=== PATIENT | female | born 1965 | race Caucasian/White ===

== ENCOUNTER 2019-09-06 09:44 | Emergency (ER) | payer MEDICAID, SELFPAY ==
[2019-09-06 09:56] VITALS: BP 128/89; PULSE 97; RESP 20; TEMP 37.2; O2SAT 97; BMI 18.8
--- NOTE | 2019-09-06 10:02 | PC.NURSE ---
Pt is unkept, no clothes from waist down. Loose fitting T-shirt and exposes her breast. Foul odor of alcohol. Denies drug use
[2019-09-06 10:22] LABS: Basophils # 0.1 10^3/uL (0.0-0.1); Basophils % 1.3 %; Eosinophils # 0.1 10^3/uL (0.0-0.8); Eosinophils % 0.9 %; Hematocrit 39.8 % (37.0-47.0); Hemoglobin 13.7 g/dL (11.5-15.3); Lymphocytes # 1.6 10^3/uL (0.8-4.8); Lymphocytes % 30.1 %; Mean Corpuscular HGB Conc 34.4 g/dL (30.0-36.0); Mean Corpuscular Hemoglobin 32.8 pg (28.0-34.0); Mean Corpuscular Volume 95.2 fL (81-99); Mean Platelet Volume 9.1 fL (7.4-10.4); Monocytes # 1.3 10^3/uL (0.2-0.9); Monocytes % 24.5 %; Neutrophils # 2.3 10^3/uL (1.8-7.7); Nucleated Red Blood Cells % 0 %; Platelet Count 272 10^3/cmm (130-400); Red Blood Count 4.18 10^6/uL (4.1-5.3); Red Cell Distribution Width 15.6 % (12.1-15.1); White Blood Count 5.4 10^3/uL (4.0-10.0)
[2019-09-06 10:38] VITALS: PULSE 82; RESP 16; O2SAT 98
[2019-09-06 10:38] LABS: Alanine Aminotransferase 46 U/L (0-33); Albumin Level 4.6 g/dL (3.5-5.2); Alkaline Phosphatase 74 IU/L (35-105); Anion Gap 22.2 (5-19); Aspartate Amino Transferase 54 U/L (0-32); Blood Urea Nitrogen 14 mg/dL (6-20); Calcium 9.7 mg/dL (8.5-10.5); Carbon Dioxide 23 mmol/L (22-29); Chloride 96 mmol/L (98-107); Globulin 3.4 g/dL (1.3-4.6); Glomerular Filtration Rate 165.7 mL/min (90-130); Glucose 131 mg/dL (65-115); Magnesium 1.8 mg/dL (1.7-2.3); Osmolality Calculated 282 mOsm/kg (285-295); Potassium 4.2 mmol/L (3.5-5.1); Sodium 137 mmol/L (136-145); Total Bilirubin 0.2 mg/dL (0.15-1.2)
[2019-09-06 10:50] LABS: Creatine Phosphokinase 431 U/L (26-192); Lactate (Lactic Acid level) 4.7 mmol/L (0.5-2.2)
--- NOTE | 2019-09-06 10:53 | XRR_ITS ---
PROCEDURE INFORMATION: Exam: XR Chest, 1 View Exam date and time: 09/06/2019 11:22 AM Age: 54 years old Clinical indication: Patient HX: HX of ms; C/O left leg pain to lower back. Involuntary leg movements; Additional info: Dyspnea/cough TECHNIQUE: Imaging protocol: XR of the chest Views: 1 view. COMPARISON: CR Chest 1 [place] [id number] 01/08/2018 10:09 PM FINDINGS: Lungs: COPD and interstitial prominence. No acute airspace disease. Pleural space: No pleural effusion. Heart/Mediastinum: No cardiomegaly. Bones/joints: Unremarkable. When correlating with the previous study, no significant interval changes are present. XR/XR chest 1V portable [id number] IMPRESSION: COPD.
--- NOTE | 2019-09-06 11:12 | W.ED.GENADLT ---
HPI - General Adult General: Chief complaint: General Medical Stated complaint: MS, INVOLUNTARY MOVEMENTS Time Seen by Provider: 09/06/19 09:48 History of Present Illness: HPI narrative: 54-year-old female comes in stating I am having an MS attack she usually sees Dr. Mooney she is twitching continuously. We will get in taking her history and she is distracted the twisting stops until I mentioned to her that it began again. She stated it started this morning. She supposed to see Dr. Mooney last month but missed her appointment she is on Tecfidera but has been taking regularly no gaps in her treatment. Onset (ago): hour(s) Severity: moderate Relieving factors: none Exacerbating factors: none Associated symptoms: Reports confusion, dyspnea and weakness; Deny chest pain, cough, diaphoresis, nausea, rash or vomiting Treatments prior to arrival: none Review of Systems Const: Denies: diaphoresis ENMT: Denies: throat pain, ear or mastoid pain, nasal discharge or nasal congestion Card: Denies: chest pain Resp: Reports: dyspnea GI: Denies: abdominal pain, nausea, vomiting, hematemesis, coffee ground emesis, diarrhea, constipation, bloating, hematochezia or melena : Denies: flank pain, difficulty voiding, dysuria, urinary frequency or urinary urgency Skin/Breast: Denies: rash or pruritus Neuro: Reports: confusion PFSH ED PFSH: Medical History Low back pain Multiple sclerosis Osteoarthritis Seizures Physical Exam Const: COMMON NORMALS: no acute distress GENERAL APPEARANCE: cooperative and comfortable ORIENTATION/CONSCIOUSNESS: Yes awake, Yes oriented to person, Yes oriented to place and Yes oriented to time HENMT: COMMON NORMALS: normocephalic, atraumatic, hearing grossly normal bilaterally, external ears normal, EAC's normal, TM's normal bilaterally, Normal nasal mucous membranes and turbinates present, moist oral mucous membranes and oropharynx normal HEAD & SCALP: normocephalic and atraumatic NOSE: Normal nasal mucous membranes and turbinates present EXTERNAL EAR: Yes external ears normal EXTERNAL AUDITORY CANAL: EAC's normal TYMPANIC MEMBRANE: TM's normal bilaterally Eye: COMMON NORMALS: Equal, round and reactive pupils present, EOMs intact bilaterally, conjunctivae normal and no scleral icterus CONJUNCTIVA: Yes conjunctivae normal PUPIL: Yes Equal, round and reactive pupils present Neck/C-Spine: COMMON NORMALS: full ROM, no lymphadenopathy, supple and no JVD Lymph: LYMPHATIC: no lymphadenopathy noted and no lymphedema noted Resp: COMMON NORMALS: normal respiratory effort, No retractions, No use of accessory muscles and clear to auscultation bilaterally AUSCULTATION: clear to auscultation bilaterally Cardio: COMMON NORMALS: no JVD, regular rate, regular rhythm and No murmurs present (Cardio) RATE: regular rate RHYTHM: regular rhythm GI: COMMON NORMALS: Soft to palpation and No hepatosplenomegaly present AUSCULTATION: Yes normoactive bowel sounds PALPATION: Yes Soft to palpation, No Tenderness to palpation present (GI), No Guarding due to palpation present (GI) and Yes No hepatosplenomegaly present Extremity: COMMON NORMALS: normal to inspection, capillary refill normal, no clubbing, cyanosis or edema, no calf tenderness and no pedal edema Neuro: SENSORIUM/ORIENTATION: Yes oriented to person, Yes oriented to place and Yes oriented to time OTHER: Frequent twitching but with distraction twitching stops. Skin: COMMON NORMALS: no rashes or lesions noted GENERAL SKIN EXAM: no rashes or lesions noted Course Vital Signs: Vital signs: Vital Signs Temperature 97.6 F 09/06/19 15:27 Pulse Rate 76 09/06/19 15:27 Respiratory Rate 16 09/06/19 15:27 Blood Pressure 138/76 09/06/19 15:27 Pulse Oximetry 95 09/06/19 15:27 MDM - General Adult MDM Narrative: Medical decision making narrative: Discussed with Dr. Mooney. Patient is acutely intoxicated at this time. Which exacerbates her MS. The repair and all did seem to help her although in her very distracted with conversation her twitching would stop throughout the conversation. Patient was also given IV fluids discussed her alcohol intake and its effect on her MS. Dr. Mooney recommends that she continue the Tecfidera, she also recommend Solu-Medrol 1 g daily for the next 3 days as the first to be given in the ER and then the other 2 as outpatients either in outpatients through home health or at Dr. Mooney's office will have case management work on getting that arranged. Patient is otherwise stable at this time will discharge home. May return if needed. Lab Data: Labs: Lab Results 09/06/19 09/06/19 09/06/19 Range/Units 10:17 10:17 10:17 WBC 5.4 (4.0-10.0) 10^3/ uL RBC 4.18 (4.1-5.3) 10^6/u L Hgb 13.7 (11.5-15.3) g/dL Hct 39.8 (37.0-47.0) % MCV 95.2 (81-99) fL MCH 32.8 (28.0-34.0) pg MCHC 34.4 (30.0-36.0) g/dL RDW 15.6 H (12.1-15.1) % Plt Count 272 (130-400) 10^3/c mm MPV 9.1 (7.4-10.4) fL Neut % (Auto) 43.0 % Lymph % (Auto) 30.1 % [place] % (Auto) 24.5 % Eos % (Auto) 0.9 % Baso % (Auto) 1.3 % Neut # (Auto) 2.3 (1.8-7.7) 10^3/u L Lymph # (Auto) 1.6 (0.8-4.8) 10^3/u L [place] # (Auto) 1.3 H (0.2-0.9) 10^3/u L Eos # (Auto) 0.1 (0.0-0.8) 10^3/u L Baso # (Auto) 0.1 (0.0-0.1) 10^3/u L Nucleated RBC % (a uto) 0 % Nucleated RBCs # 0.0 /100WBC Sodium 137 (136-145) mmol/L Potassium 4.2 (3.5-5.1) mmol/L Chloride 96 L (98-107) mmol/L Carbon Dioxide 23 (22-29) mmol/L Anion Gap 22.2 H (5-19) BUN 14 (6-20) mg/dL Creatinine 0.4 L (0.5-0.9) mg/dL GFR Calculation 165.7 H (90-130) mL/min Glucose 131 H (65-115) mg/dL Calculated Osmolal ity 282 L (285-295) mOsm/k g Lactate 4.7 H* (0.5-2.2) mmol/L Calcium 9.7 (8.5-10.5) mg/dL Phosphorus 3.0 (2.5-4.5) mg/dL Magnesium 1.8 (1.7-2.3) mg/dL Total Bilirubin 0.2 (0.15-1.2) mg/dL AST 54 H (0-32) U/L ALT 46 H (0-33) U/L Alkaline Phosphata se 74 (35-105) IU/L Creatine Kinase 431 H* (26-192) U/L Total Protein 8.0 (6.6-8.7) g/dL Albumin 4.6 (3.5-5.2) g/dL Globulin 3.4 (1.3-4.6) g/dL Urine Color (Yellow) Urine Appearance (CLEAR) Urine pH (5-7) Ur Specific Gravit y (1.005-1.030) Urine Protein (Negative) Urine Glucose (UA) (Normal) Urine Ketones (Negative) Urine Blood (Negative) Urine Nitrate (Negative) Urine Bilirubin (NEGATIVE) Urine Urobilinogen (Negative) mg/dL Ur Leukocyte Tammy ase (Negative) Urine RBC (0-2) /hpf Urine WBC (0-5) /hpf Ur Squamous Epith Cells (0-5) Amorphous Sediment Urine Bacteria (NONE) Urine Mucus Urine Opiates Scre en (Negative) ng/mL Ur Barbiturates Sc reen (Negative) ng/mL Ur Phencyclidine S crn (Negative) ng/mL Ur Amphetamines Sc reen (Negative) ng/mL U Benzodiazepines Scrn (Negative) ng/mL Urine Cocaine Scre en (Negative) ng/mL U Marijuana (THC) Screen (Negative) ng/mL Ethyl Alcohol (0-10) mg/dL 09/06/19 09/06/19 09/06/19 Range/Units 10:17 10:57 10:57 WBC (4.0-10.0) 10^3/ uL RBC (4.1-5.3) 10^6/u L Hgb (11.5-15.3) g/dL Hct (37.0-47.0) % MCV (81-99) fL MCH (28.0-34.0) pg MCHC (30.0-36.0) g/dL RDW (12.1-15.1) % Plt Count (130-400) 10^3/c mm MPV (7.4-10.4) fL Neut % (Auto) % Lymph % (Auto) % [place] % (Auto) % Eos % (Auto) % Baso % (Auto) % Neut # (Auto) (1.8-7.7) 10^3/u L Lymph # (Auto) (0.8-4.8) 10^3/u L [place] # (Auto) (0.2-0.9) 10^3/u L Eos # (Auto) (0.0-0.8) 10^3/u L Baso # (Auto) (0.0-0.1) 10^3/u L Nucleated RBC % (a uto) % Nucleated RBCs # /100WBC Sodium (136-145) mmol/L Potassium (3.5-5.1) mmol/L Chloride (98-107) mmol/L Carbon Dioxide (22-29) mmol/L Anion Gap (5-19) BUN (6-20) mg/dL Creatinine (0.5-0.9) mg/dL GFR Calculation (90-130) mL/min Glucose (65-115) mg/dL Calculated Osmolal ity (285-295) mOsm/k g Lactate (0.5-2.2) mmol/L Calcium (8.5-10.5) mg/dL Phosphorus (2.5-4.5) mg/dL Magnesium (1.7-2.3) mg/dL Total Bilirubin (0.15-1.2) mg/dL AST (0-32) U/L ALT (0-33) U/L Alkaline Phosphata se (35-105) IU/L Creatine Kinase (26-192) U/L Total Protein (6.6-8.7) g/dL Albumin (3.5-5.2) g/dL Globulin (1.3-4.6) g/dL Urine Color Straw (Yellow) Urine Appearance Clear (CLEAR) Urine pH 5.0 (5-7) Ur Specific Gravit y 1.020 (1.005-1.030) Urine Protein Neg (Negative) Urine Glucose (UA) Norm (Normal) Urine Ketones 1+ H (Negative) Urine Blood 2+ H (Negative) Urine Nitrate Negative (Negative) Urine Bilirubin Neg (NEGATIVE) Urine Urobilinogen Norm (Negative) mg/dL Ur Leukocyte Tammy ase Negative (Negative) Urine RBC 0-4 H (0-2) /hpf Urine WBC None (0-5) /hpf Ur Squamous Epith Cells 0-4 H (0-5) Amorphous Sediment Not Reportable Urine Bacteria 1+ H (NONE) Urine Mucus 1+ Urine Opiates Scre en Negative (Negative) ng/mL Ur Barbiturates Sc reen Negative (Negative) ng/mL Ur Phencyclidine S crn Negative (Negative) ng/mL Ur Amphetamines Sc reen Negative (Negative) ng/mL U Benzodiazepines Scrn Negative (Negative) ng/mL Urine Cocaine Scre en Negative (Negative) ng/mL U Marijuana (THC) Screen Negative (Negative) ng/mL Ethyl Alcohol 147 H (0-10) mg/dL Discharge Plan Discharge Patient Disposition: Home, Self-Care Clinical Impression: Multiple sclerosis, ETOH abuse, Acute alcohol intoxication Condition: Stable Prescriptions: No Action Tecfidera 240 mg capsule,delayed release(DR/EC) 240 mg PO BID Qty: 60 RF: 8 Tecfidera 240 mg capsule,delayed release(DR/EC) 240 mg PO BID Qty: 180 RF: 4 Discharge Orders: Discharge Order (Routine); Ordered 09/06/19 Ordered By: Saul Moore Referrals: Jeny Johnson FNP [Primary Care Provider] - Discharge Diet: Advance as tolerated Discharge Activity: Resume usual activity Activity Restrictions/Additional Instructions: Abstain from alcohol. Case management will arrange for you to get Solu-Medrol 1 g tomorrow and the following day. 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
[2019-09-06 11:25] LABS: Add Urine Microscopic? YES; Bilirubin Urine Neg (NEGATIVE); Blood Urine 2+ (Negative); Glucose Urine UA Norm (Normal); Ketones Urine 1+ (Negative); Leukocyte Esterase Urine Negative (Negative); Nitrate Urine Negative (Negative); Protein Urine Neg (Negative); Urine Appearance Clear (CLEAR); Urine Color Straw (Yellow); Urobilinogen Urine Norm (Negative)
[2019-09-06 11:29] VITALS: BP 132/92; PULSE 85; RESP 18; O2SAT 98
--- NOTE | 2019-09-06 11:37 | PC.NURSE ---
Poor Hygiene, Unkept and foul body odor. Alert and oriented.
[2019-09-06 11:46] LABS: Bacteria Urine 1+; Mucus Urine 1+; RBC Urine 0-4 /hpf (0-2); Squamous Epithelial Cell Urine 0-4 (0-5)
[2019-09-06 11:47] LABS: Add Urine Culture? No
[2019-09-06 11:52] LABS: Alcohol Level 147 mg/dL (0-10)
[2019-09-06 12:12] LABS: Amphetamines Screen Urine Negative (Negative); Barbiturates Screen Urine Negative (Negative); Benzodiazepines Screen Urine Negative (Negative); Cocaine Screen Urine Negative (Negative); Opiate Screen Urine Negative (Negative); PCP Screen Urine Negative (Negative); THC Screen Urine Negative (Negative)
[2019-09-06] MEDS: ropinirole 1 mg Tablet PO (12:13)
--- NOTE | 2019-09-06 13:34 | DCPLANNER ---
career services manager was asked to schedule a follow up appointment for patient with Dr. Mooney for an infusion. career services manager called the office of Dr. Mooney, spoke with Carmelita, the following appointments were scheduled for patient. Thursday, September 07, 2019 at 11:00 trip [place] [phone] August at 11:00 trip number [id number] career services manager called and arranged transportation for patient for these two appointments. career services manager also called and arranged [place] [phone].
[2019-09-06] MEDS: metoclopramide 5 mg/mL SDV 2 mL 10 MG IVP (13:38)
[2019-09-06 13:42] VITALS: BP 144/82; PULSE 90; RESP 16; O2SAT 97
[2019-09-06] MEDS: sodium chloride 0.9% 1,000 ML 999 ML IV (14:01)
[2019-09-06 15:27] VITALS: BP 138/76; PULSE 76; RESP 16; TEMP 36.4; O2SAT 95
--- NOTE | 2019-09-13 11:34 | DCPLANNER ---
Patient did attend follow up appointment scheduled for 09.08.[address] Mooney.
== END 2019-09-06 15:29 | disposition home or self-care (01) ==
LOC: ER 12:31
PROVIDERS: Emergency Provider Family Medicine; Family Provider Nurse Practitioner; PCP Nurse Practitioner
DX: G35 Multiple sclerosis (principal); F10.129 Alcohol abuse with intoxication, unspecified; Y90.6 Blood alcohol level of 120-199 mg/100 ml
CPT/HCPCS: 12345; 36415; 71045; 80053; 80306; 80307; 81001; 81003; 82550; 83605; 83735; 84100; 85025; 96361; 96365; 96375; 99283; 99284; J2765; J2930; J7030; J7050

== ENCOUNTER 2019-09-07 11:17 | Outpatient (CLI) | payer MEDICAID, SELFPAY | END 2019-09-07 11:18 | disposition home or self-care (01) | LOC: NSACUTE 11:17 | PROVIDERS: Family Provider Nurse Practitioner; PCP Nurse Practitioner; Visit Provider Specialist | DX: G35 Multiple sclerosis (principal) | CPT/HCPCS: 96365; J2930; J7050 ==

== ENCOUNTER 2019-09-08 10:40 | Outpatient (CLI) | payer MEDICAID, SELFPAY | END 2019-09-08 10:41 | disposition home or self-care (01) | LOC: NSACUTE 10:41 | PROVIDERS: Family Provider Nurse Practitioner; PCP Nurse Practitioner; Visit Provider Specialist | DX: G35 Multiple sclerosis (principal) | CPT/HCPCS: 99215; J2930; J7050 ==

== ENCOUNTER 2020-01-03 11:03 | Emergency (ER) | payer MEDICAID, SELFPAY ==
[2020-01-03 11:10] VITALS: BP 149/100; PULSE 108; RESP 16; TEMP 37.2; O2SAT 99; BMI 18.6
--- NOTE | 2020-01-03 11:13 | W.ED.OVERDOS ---
HPI - Overdose General: Chief Complaint: Overdose Stated Complaint: unintentional overdose, depression Time Seen by Provider: 01/03/20 11:07 Source: patient and EMS Mode of arrival: EMS Limitations: no limitations History of Present Illness: HPI Narrative: 54-year-old female who has a history of multiple sclerosis and chronic pain. She states roughly 3 to 4 hours ago she took a friend's tramadol. She states she took 5 of them instead of 1 and is concerned about overdose. She is unsure what dosages they are and could not find the pill bottle. She had called a friend who then called an ambulance. She states she has been having some depression as a close friend has recently . She states that she is already on antidepressants though and is not having any suicidal or homicidal thoughts. She states that she took these meds due to her pain and was not trying to intentionally overdose. Review of Systems Const: Denies: fever(s), chills, body aches or change in appetite Eyes: Denies: blurry vision or eye discomfort ENMT: Denies: throat pain or dental pain Card: Denies: chest pain Resp: Denies: dyspnea GI: Denies: abdominal pain, nausea, vomiting or diarrhea : Denies: dysuria Musc: Denies: neck pain or back pain Skin/Breast: Denies: rash Neuro: Denies: headache(s) Psych: Reports: depression Misha/Lymph: Denies: easy bruising All/Imm: Denies: urticaria PFS ED PFSH: Medical History Low back pain Multiple sclerosis Osteoarthritis Seizures Social History (Updated 01/03/20 @ 11:23 by Delano Baumann RN) Smoking and tobacco status: current every day smoker cigarettes Packs smoked per day: 0.5 Alcohol intake: never Substance/Drug Use: never Physical Exam Const: COMMON NORMALS: no acute distress, patient oriented x3 and healthy appearing HENMT: COMMON NORMALS: normocephalic and atraumatic HEAD & SCALP: normocephalic and atraumatic Eye: COMMON NORMALS: Equal, round and reactive pupils present and EOMs intact bilaterally PUPIL: Yes Equal, round and reactive pupils present Neck/C-Spine: COMMON NORMALS: full ROM and supple Chest: COMMONS NORMALS: normal inspection of the chest and normal palpation of entire chest wall Resp: COMMON NORMALS: normal respiratory effort, No retractions, No use of accessory muscles and clear to auscultation bilaterally AUSCULTATION: clear to auscultation bilaterally Cardio: COMMON NORMALS: regular rate, regular rhythm and No murmurs present (Cardio) RATE: regular rate RHYTHM: regular rhythm GI: COMMON NORMALS: Normal to inspection, nondistended, normoactive bowel sounds present, Soft to palpation, non-tender and no masses PALPATION: Yes Soft to palpation Extremity: COMMON NORMALS: normal to inspection and full ROM Neuro: COMMON NORMALS: patient oriented x3, moves all extremities and no focal motor deficits Psych: COMMON NORMALS: mental status grossly normal, Normal thought process present and cooperative THOUGHT PROCESS: Normal thought process present Skin: COMMON NORMALS: no rashes or lesions noted and no wounds GENERAL SKIN EXAM: no rashes or lesions noted Course Vital Signs: Vital signs: Vital Signs Temperature 98.9 F 01/03/20 11:10 Pulse Rate 108 H 01/03/20 11:10 Respiratory Rate 18 01/03/20 11:46 Blood Pressure 149/100 01/03/20 11:10 Pulse Oximetry 99 01/03/20 11:10 MDM - Overdose MDM Narrative: Medical decision making narrative: Patient presents with an accidental overdose. I spoke to poison control and they did not believe that it was a toxic dose. Patient is well-appearing here and has had no symptoms. Patient was observed and lab work is all normal. Patient is not suicidal. I did have psychiatrist Dr. Salazar talk to patient as well and he is in agreement that she is not suicidal. Lab Data: Labs: Lab Results 01/03/20 01/03/20 01/03/20 Range/Units 11:32 11:40 11:40 WBC 6.5 (4.0-10.0) 10^3/ uL RBC 4.15 (4.1-5.3) 10^6/u L Hgb 13.8 (11.5-15.3) g/dL Hct 39.9 (37.0-47.0) % MCV 96.1 (81-99) fL MCH 33.3 (28.0-34.0) pg MCHC 34.6 (30.0-36.0) g/dL RDW 16.0 H (12.1-15.1) % Plt Count 316 (130-400) 10^3/c mm MPV 9.3 (7.4-10.4) fL Neut % (Auto) 63.1 % Lymph % (Auto) 12.5 % [place] % (Auto) 23.0 % Eos % (Auto) 0.3 % Baso % (Auto) 0.9 % Neut # (Auto) 4.08 (1.8-7.7) 10^3/u L Lymph # (Auto) 0.8 (0.8-4.8) 10^3/u L [place] # (Auto) 1.5 H (0.2-0.9) 10^3/u L Eos # (Auto) 0.0 (0.0-0.8) 10^3/u L Baso # (Auto) 0.1 (0.0-0.1) 10^3/u L Nucleated RBC % (a uto) 0 % Nucleated RBCs # 0.0 /100WBC Sodium 134 L (136-145) mmol/L Potassium 4.1 (3.5-5.1) mmol/L Chloride 94 L (98-107) mmol/L Carbon Dioxide 23 (22-29) mmol/L Anion Gap 21.1 H (5-19) BUN 17 (6-20) mg/dL Creatinine 0.4 L (0.5-0.9) mg/dL GFR Calculation 165.7 H (90-130) mL/min Glucose 146 H (65-115) mg/dL Calculated Osmolal ity 282 L (285-295) mOsm/k g Calcium 9.2 (8.5-10.5) mg/dL Total Bilirubin 0.2 (0.15-1.2) mg/dL AST 36 H (0-32) U/L ALT 41 H (0-33) U/L Alkaline Phosphata se 89 (35-105) IU/L Total Protein 7.6 (6.6-8.7) g/dL Albumin 4.6 (3.5-5.2) g/dL Globulin 3.0 (1.3-4.6) g/dL Salicylates 0.4 L (3-10) mg/dL Urine Opiates Scre en Negative (Negative) ng/mL Acetaminophen < 5.0 L (10-30) ug/mL Ur Barbiturates Sc reen Negative (Negative) ng/mL Ur Phencyclidine S crn Negative (Negative) ng/mL Ur Amphetamines Sc reen Negative (Negative) ng/mL U Benzodiazepines Scrn Positive H (Negative) ng/mL Urine Cocaine Scre en Negative (Negative) ng/mL U Marijuana (THC) Screen Negative (Negative) ng/mL Ethyl Alcohol 88 H (0-10) mg/dL Discharge Plan Discharge Patient Disposition: Home Clinical Impression: Drug overdose Qualifiers: Encounter type: initial encounter Injury intent: accidental or unintentional Qualified Code(s): T50.901A - Poisoning by unspecified drugs, medicaments and biological substances, accidental (unintentional), initial encounter Condition: Stable Prescriptions: No Action fluoxetine 20 mg Tablet 20 mg PO TID RF: 0 Multiple Vitamin, Womens Tablet 1 tab PO DAILY RF: 0 Tecfidera 240 mg Capsule,Delayed Release(Dr/Ec) 240 mg PO BID RF: 0 Discharge Orders: Discharge Order (Routine); Ordered 01/03/20 Ordered By: Neo Acosta Referrals: Katerina Mooney MD [Primary Care Provider] - Discharge Diet: Advance as tolerated Discharge Activity: Resume usual activity Patient Instructions: Depression (ED) Coding Level of Care Code ED 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
[2020-01-03 11:46] VITALS: RESP 18
[2020-01-03 11:49] LABS: Amphetamines Screen Urine Negative (Negative); Barbiturates Screen Urine Negative (Negative); Benzodiazepines Screen Urine Positive (Negative); Cocaine Screen Urine Negative (Negative); Opiate Screen Urine Negative (Negative); PCP Screen Urine Negative (Negative); THC Screen Urine Negative (Negative)
[2020-01-03 11:53] LABS: Basophils # 0.1 10^3/uL (0.0-0.1); Basophils % 0.9 %; Eosinophils % 0.3 %; Hematocrit 39.9 % (37.0-47.0); Hemoglobin 13.8 g/dL (11.5-15.3); Lymphocytes # 0.8 10^3/uL (0.8-4.8); Lymphocytes % 12.5 %; Mean Corpuscular HGB Conc 34.6 g/dL (30.0-36.0); Mean Corpuscular Hemoglobin 33.3 pg (28.0-34.0); Mean Corpuscular Volume 96.1 fL (81-99); Mean Platelet Volume 9.3 fL (7.4-10.4); Monocytes # 1.5 10^3/uL (0.2-0.9); Neutrophils # 4.08 10^3/uL (1.8-7.7); Neutrophils % 63.1 %; Nucleated Red Blood Cells % 0 %; Platelet Count 316 10^3/cmm (130-400); Red Blood Count 4.15 10^6/uL (4.1-5.3); White Blood Count 6.5 10^3/uL (4.0-10.0)
[2020-01-03 12:09] LABS: Alanine Aminotransferase 41 U/L (0-33); Albumin Level 4.6 g/dL (3.5-5.2); Alcohol Level 88 mg/dL (0-10); Alkaline Phosphatase 89 IU/L (35-105); Anion Gap 21.1 (5-19); Aspartate Amino Transferase 36 U/L (0-32); Blood Urea Nitrogen 17 mg/dL (6-20); Calcium 9.2 mg/dL (8.5-10.5); Carbon Dioxide 23 mmol/L (22-29); Chloride 94 mmol/L (98-107); Glomerular Filtration Rate 165.7 mL/min (90-130); Glucose 146 mg/dL (65-115); Osmolality Calculated 282 mOsm/kg (285-295); Potassium 4.1 mmol/L (3.5-5.1); Salicylate 0.4 mg/dL (3-10); Sodium 134 mmol/L (136-145); Total Bilirubin 0.2 mg/dL (0.15-1.2); Total Protein 7.6 g/dL (6.6-8.7)
[2020-01-03 12:14] LABS: Acetaminophen < 5.0 ug/mL (10-30)
[2020-01-03 12:50] VITALS: RESP 18
--- NOTE | 2020-01-03 12:55 | DCPLANNER ---
manager of environmental services was asked to arrange for transportation for patient. manager of environmental services called [facility] for medicaid ride[place] [phone]. manager of environmental services then called [facility] and gave the trip number to [facility].
== END 2020-01-03 12:50 | disposition home or self-care (01) ==
PROVIDERS: Emergency Provider Emergency Medicine; PCP Specialist
DX: T50.901A Poisoning by unspecified drugs, medicaments and biological substances, accidental (unintentional), initial encounter (principal); G35 Multiple sclerosis; F17.210 Nicotine dependence, cigarettes, uncomplicated
CPT/HCPCS: 12345; 80053; 80306; 80307; 85025; 99281; 99283

== ENCOUNTER 2020-05-01 21:01 | Emergency (ER) | payer MEDICAID, SELFPAY ==
[2020-05-01 21:09] VITALS: BP 112/77; PULSE 82; RESP 18; TEMP 36.7; O2SAT 98; BMI 21.7
--- NOTE | 2020-05-01 21:28 | W.ED.ALCOHOL ---
HPI - Alcohol General: Chief Complaint: Alcohol Stated Complaint: ETOH/SI/LOW BLOOD SUGAR Time Seen by Provider: 05/01/20 21:05 Source: EMS Mode of arrival: EMS Limitations: altered mental status History of Present Illness: HPI narrative: 54-year-old female who has a history of chronic alcoholism. Patient called EMS today and and found her passed out with a bottle of vodka. Patient will arouse to painful stimuli and able to tell me her name but that is it. She immediately falls back to sleep. She had told EMS she only drank a little. Denies any other drugs or denies any suicidality to me at this time. Review of Systems General: Reports: ROS unobtainable due to mental status PFSH ED PFSH: Medical History (Updated 05/02/20 @ 02:24 by Neo Acosta MD) Low back pain Multiple sclerosis Osteoarthritis Seizures Surgical History (Updated 03/29/20 @ 07:09 by Denita Das DO) No pertinent past surgical history Family History Other Lung disease Social History Smoking and tobacco status: current every day smoker cigarettes Packs smoked per day: 0.1 Alcohol intake: current Alcohol intake frequency: few times a week Alcohol type: wine Physical Exam Const: EXAM LIMITATIONS: altered mental status HENMT: COMMON NORMALS: normocephalic and atraumatic HEAD & SCALP: normocephalic and atraumatic Eye: COMMON NORMALS: Equal, round and reactive pupils present and EOMs intact bilaterally PUPIL: Yes Equal, round and reactive pupils present Neck/C-Spine: COMMON NORMALS: full ROM and supple Chest: COMMONS NORMALS: normal inspection of the chest and normal palpation of entire chest wall Resp: COMMON NORMALS: normal respiratory effort, No retractions, No use of accessory muscles and clear to auscultation bilaterally AUSCULTATION: clear to auscultation bilaterally Cardio: COMMON NORMALS: regular rate, regular rhythm and No murmurs present (Cardio) RATE: regular rate RHYTHM: regular rhythm GI: COMMON NORMALS: Normal to inspection, nondistended, normoactive bowel sounds present, Soft to palpation, non-tender and no masses PALPATION: Yes Soft to palpation Extremity: COMMON NORMALS: normal to inspection and full ROM Neuro: COMMON NORMALS: moves all extremities and no focal motor deficits OTHER: very intoxicated Psych: COMMON NORMALS: negative for mental status grossly normal Skin: COMMON NORMALS: no rashes or lesions noted and no wounds GENERAL SKIN EXAM: no rashes or lesions noted Course Vital Signs: Vital signs: Vital Signs Temperature 98.0 F 05/01/20 21:09 Pulse Rate 88 05/02/20 01:50 Respiratory Rate 17 05/02/20 01:50 Blood Pressure 112/78 05/02/20 01:50 Pulse Oximetry 96 05/02/20 01:50 MDM - Alcohol MDM Narrative: Medical decision making narrative: Patient presents here with alcohol intoxication. Patient also has a fracture of her left metatarsal. Patient placed in a [place] shoe and she is to follow-up with Dr. Larry. Patient return if worsening. Lab Data: Labs: Lab Results 05/01/20 05/01/20 05/01/20 Range/Units 21:13 21:41 21:47 WBC 6.1 (4.0-10.0) 10^3/ uL RBC 3.74 L (4.1-5.3) 10^6/u L Hgb 12.1 (11.5-15.3) g/dL Hct 35.3 L (37.0-47.0) % MCV 94.4 (81-99) fL MCH 32.4 (28.0-34.0) pg MCHC 34.3 (30.0-36.0) g/dL RDW 15.9 H (12.1-15.1) % Plt Count 297 (130-400) 10^3/c mm MPV 10.2 (7.4-10.4) fL Neut % (Auto) 40.5 % Lymph % (Auto) 44.0 % [place] % (Auto) 11.6 % Eos % (Auto) 2.6 % Baso % (Auto) 1.0 % Neut # (Auto) 2.48 (1.8-7.7) 10^3/u L Lymph # (Auto) 2.7 (0.8-4.8) 10^3/u L [place] # (Auto) 0.7 (0.2-0.9) 10^3/u L Eos # (Auto) 0.2 (0.0-0.8) 10^3/u L Baso # (Auto) 0.1 (0.0-0.1) 10^3/u L Nucleated RBC % (a uto) 0 % Nucleated RBCs # 0.0 /100WBC Sodium 137 (136-145) mmol/L Potassium 3.7 (3.5-5.1) mmol/L Chloride 98 (98-107) mmol/L Carbon Dioxide 24 (22-29) mmol/L Anion Gap 18.7 (5-19) BUN 9 (6-20) mg/dL Creatinine 0.3 L (0.5-0.9) mg/dL GFR Calculation 231.0 H (90-130) mL/min Glucose 98 (65-115) mg/dL Calculated Osmolal ity 283 L (285-295) mOsm/k g Calcium 8.6 (8.5-10.5) mg/dL Total Bilirubin 0.2 (0.15-1.2) mg/dL AST 51 H (0-32) U/L ALT 36 H (0-33) U/L Alkaline Phosphata se 77 (35-105) IU/L Total Protein 7.4 (6.6-8.7) g/dL Albumin 4.2 (3.5-5.2) g/dL Globulin 3.2 (1.3-4.6) g/dL Salicylates 0.9 L (3-10) mg/dL Urine Opiates Scre en Negative (Negative) ng/mL Acetaminophen < 5.0 L (10-30) ug/mL Ur Barbiturates Sc reen Negative (Negative) ng/mL Ur Phencyclidine S crn Negative (Negative) ng/mL Ur Amphetamines Sc reen Negative (Negative) ng/mL U Benzodiazepines Scrn Negative (Negative) ng/mL Urine Cocaine Scre en Negative (Negative) ng/mL U Marijuana (THC) Screen Negative (Negative) ng/mL Ethyl Alcohol 389 H* (0-10) mg/dL Imaging Data^: X-ray left foot: Attestation: I personally reviewed and interpreted this imaging study as follows: My impression: Metastatic tarsal fracture proximal left 3 metatarsal Discharge Plan Discharge Patient Disposition: Home Clinical Impression: Foot fracture, left Alcoholic intoxication Qualifiers: Complication of substance-induced condition: uncomplicated Qualified Code(s): F10.920 - Alcohol use, unspecified with intoxication, uncomplicated Condition: Stable Prescriptions: No Action gabapentin 300 mg capsule 300 mg PO BID RF: 0 fluoxetine 20 mg tablet 20 mg PO TID Qty: 90 RF: 2 Multiple Vitamin, Womens Tablet 1 tab PO DAILY RF: 0 Tecfidera 240 mg Capsule,Delayed Release(Dr/Ec) 240 mg PO BID RF: 0 Discharge Orders: Discharge ED (Routine); Ordered 05/02/20 Ordered By: Neo Acosta Referrals: Blair Larry DPM [Physician] - 1-3 days Discharge Diet: Advance as tolerated Discharge Activity: Resume usual activity Patient Instructions: Abuse of Alcohol (ED) Coding Level of Care Code 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
[2020-05-01 21:38] LABS: Basophils # 0.1 10^3/uL (0.0-0.1); Eosinophils # 0.2 10^3/uL (0.0-0.8); Eosinophils % 2.6 %; Hematocrit 35.3 % (37.0-47.0); Hemoglobin 12.1 g/dL (11.5-15.3); Lymphocytes # 2.7 10^3/uL (0.8-4.8); Mean Corpuscular HGB Conc 34.3 g/dL (30.0-36.0); Mean Corpuscular Hemoglobin 32.4 pg (28.0-34.0); Mean Corpuscular Volume 94.4 fL (81-99); Mean Platelet Volume 10.2 fL (7.4-10.4); Monocytes # 0.7 10^3/uL (0.2-0.9); Monocytes % 11.6 %; Neutrophils # 2.48 10^3/uL (1.8-7.7); Neutrophils % 40.5 %; Nucleated Red Blood Cells % 0 %; Platelet Count 297 10^3/cmm (130-400); Red Blood Count 3.74 10^6/uL (4.1-5.3); Red Cell Distribution Width 15.9 % (12.1-15.1); White Blood Count 6.1 10^3/uL (4.0-10.0)
[2020-05-01 22:13] LABS: Alanine Aminotransferase 36 U/L (0-33); Albumin Level 4.2 g/dL (3.5-5.2); Alkaline Phosphatase 77 IU/L (35-105); Anion Gap 18.7 (5-19); Aspartate Amino Transferase 51 U/L (0-32); Blood Urea Nitrogen 9 mg/dL (6-20); Calcium 8.6 mg/dL (8.5-10.5); Carbon Dioxide 24 mmol/L (22-29); Chloride 98 mmol/L (98-107); Globulin 3.2 g/dL (1.3-4.6); Glucose 98 mg/dL (65-115); Osmolality Calculated 283 mOsm/kg (285-295); Potassium 3.7 mmol/L (3.5-5.1); Salicylate 0.9 mg/dL (3-10); Sodium 137 mmol/L (136-145); Total Bilirubin 0.2 mg/dL (0.15-1.2); Total Protein 7.4 g/dL (6.6-8.7)
[2020-05-01 22:15] VITALS: BP 110/76; PULSE 84; RESP 17; O2SAT 97
[2020-05-01 22:29] LABS: Acetaminophen < 5.0 ug/mL (10-30); Alcohol Level 389 mg/dL (0-10)
[2020-05-01 22:42] LABS: Amphetamines Screen Urine Negative (Negative); Barbiturates Screen Urine Negative (Negative); Benzodiazepines Screen Urine Negative (Negative); Cocaine Screen Urine Negative (Negative); Opiate Screen Urine Negative (Negative); PCP Screen Urine Negative (Negative); THC Screen Urine Negative (Negative)
[2020-05-01 22:45] VITALS: BP 173/86; PULSE 81; RESP 26; O2SAT 93
[2020-05-01 23:18] VITALS: BP 91/54; PULSE 92; RESP 17; O2SAT 97
[2020-05-02 01:50] VITALS: BP 112/78; PULSE 88; RESP 17; O2SAT 96
--- NOTE | 2020-05-02 02:07 | XR_ITS ---
WS: [id number] LEFT FOOT: 3 VIEW(S) TECHNIQUE: AP, oblique and lateral. HISTORY: pain COMPARISON: None available. Acute transverse fractures involving the second and third proximal metatarsals. Indeterminate but mark picious for transverse fracture in the proximal fourth metatarsal. On the lateral projection there is an avulsion fracture along the dorsal surface of what is probably the proximal first metatarsal. Normal tarsal/metatarsal alignment. Mild soft tissue edema surrounding the foot. XR/XR foot LT min 3V* [id number] IMPRESSION: Nondisplaced fractures involving the first, second and third and probably the f ourth metatarsal.
[2020-05-02] MEDS: HYDROcodone-acetaminophen 5-325 mg Tablet 1 TAB PO (02:15)
--- NOTE | 2020-05-02 08:31 | PC.NURSE ---
Patient utilized call light in bathroom. I responded and determined patient very tearful and stating she was not going to be able to take care of herself at home. Assisted patient into wheelchair and took to lobby. Informed patient was going to review chart and see what was determined about her left foot. Review of Dr. Acosta's documentation revealed fractured metatarsal. Patient was offered crutches and stated she had crutches. Offered some services at home and patient agreed. Kristel Riggs, manager of international of ED to lobby to speak with patient concerning possible assistance at home.
--- NOTE | 2020-05-02 10:03 | DCPLANNER ---
internet manager was asked to speak with patient about services in the home. internet manager spoke with patient, she stated that it will be hard for her to get around in her home due to her breaking her foot and having MS. Patient has medicaid for insurance, so she would be eligible for in home services, some to cook and clean for her. Patient asked if there was anything that would help her with bathing. internet manager told patient that case aide did not think that in home did a bath aid but that patient could speak with which ever company she chose and see what services that they could provide. internet manager did not have anything left from ED physician mentioning home health or any type of in home services. internet manager scheduled a follow up appointment for patient with primary care physician, Dr. Das, at [facility]. internet manager called [facility], spoke with Sandra, gave clinic patients appointment information. A follow up appointment was scheduled for April at 9:[address] Das. internet manager informed patient of this appointment. When case aide called to make this appointment, case aide was told that patient did have an appointment on 04.30.20 and patient did not attend the appointment, was a no show. internet manager spoke with patient about this appointment she stated that she did not have the physicians phone number. internet manager gave patient the phone number to the clinic. Registration helped patient put the phone to [facility] in patients phone also the phone number to [facility] [employer] was added to her phone so that patient could call and make a follow up appointment with a dentist. internet manager also called [employer] and arranged for transportation to the appointment with Dr. Das, [place] [phone]. Patient is still in the ER waiting room, awaiting transportation as a discharge. internet manager called [employer], spoke with Bryanna, to inquire about the discharge ride. internet manager was told that the ride had been assigned to a airport shuttle driver, which is not an option in [place]. A note was put in with the terrazzo supervisor to redo the ride for patient [place]. [place] [phone]. internet manager called [employer] to see if they could package pick up the ride, and transport patient to her home, gave [facility] the trip number. internet manager also had message to schedule a follow up appointment for patient with ortho. internet manager called the ortho clinic, spoke with Eduarda, gave clinic patients information. internet manager was told that patients information would be printed and reviewed. Clinic will call patient with appointment information.
--- NOTE | 2020-05-03 12:12 | DCPLANNER ---
Patient had a follow up appointment scheduled for 05.03.20 with ortho - patient did not attend appointment. Patient also had a follow up appointment for with Dr. Das - patient did not attend appointment.
== END 2020-05-02 02:47 | disposition home or self-care (01) ==
PROVIDERS: Emergency Provider Emergency Medicine
DX: F10.920 Alcohol use, unspecified with intoxication, uncomplicated (principal); S92.332A Displaced fracture of third metatarsal bone, left foot, initial encounter for closed fracture; Y90.8 Blood alcohol level of 240 mg/100 ml or more; G35 Multiple sclerosis; F17.210 Nicotine dependence, cigarettes, uncomplicated
CPT/HCPCS: 36415; 73630; 80053; 80306; 80307; 85025; 99283

== ENCOUNTER 2022-04-09 14:13 | Emergency (ER) | payer MEDICAID, SELFPAY ==
[2022-04-09] VITALS (9 sets, daily range): BP systolic 95–129; BP diastolic 54–74; PULSE 49–82; RESP 12–16; TEMP 36.7; O2SAT 50–99
--- NOTE | 2022-04-09 14:20 | ED_ITS ---
HPI - Altered Mental Status General: Chief Complaint: Alcohol Stated Complaint: ams/ etoh Time Seen by Provider: 04/09/22 14:20 Limitations: altered mental status History of Present Illness: 56-year-old lady presenting for altered mental status. Patient is quite somnolent and does not answer questions. She does awaken to painful stimuli. History is otherwise unclear. Review of Systems General: Reports: ROS unobtainable due to mental status PFS ED PFSH: Medical History DJD (degenerative joint disease), lumbar Low back pain Multiple sclerosis Osteoarthritis Seizures Surgical History No pertinent past surgical history Family History Other Lung disease Social History Smoking and tobacco status: never smoked Alcohol intake: current Alcohol intake frequency: few times a week Alcohol type: wine Adopted: No Caregiver/support person: No Lives independently: Yes Current gender identity: Female Physical Exam Const: COMMON NORMALS: alert GENERAL APPEARANCE: well developed and tiny rgic; not cooperative ORIENTATION/CONSCIOUSNESS: Yes lethargic HENMT: COMMON NORMALS: normocephalic and atraumatic HEAD & SCALP: normocephalic and atraumatic THROAT: posterior oropharynx normal Eye: COMMON NORMALS: conjunctivae normal CONJUNCTIVA: Yes conjunctivae normal SCLERA: sclerae normal Neck/C-Spine: COMMON NORMALS: supple GENERAL: Yes trachea midline Resp: COMMON NORMALS: normal respiratory effort and clear to auscultation bilaterally AUSCULTATION: clear to auscultation bilaterally Cardio: COMMON NORMALS: regular rate and regular rhythm RATE: regular rate RHYTHM: regular rhythm GI: COMMON NORMALS: Soft to palpation PALPATION: Yes Soft to palpation and No Tenderness to palpation present (GI) Extremity: GENERAL: Yes normal exam except as noted and No edema Neuro: COMMON NORMALS: moves all extremities SENSORIUM/ORIENTATION: Yes alert, Yes Orientation impaired and Yes lethargic Psych: MEMORY/COGNITION: Yes memory grossly impaired and Yes cognition grossly impaired Course Vital Signs: Vital signs: Vital Signs Temperature 98.0 F 04/09/22 14:20 Pulse Rate 87 04/10/22 01:14 Respiratory Rate 16 04/10/22 01:14 Blood Pressure 129/68 04/09/22 20:00 Pulse Oximetry 97 04/10/22 01:14 Oxygen Delivery Me thod 04/09/22 23:00 MDM - Altered Mental Status Medical Decision Making 56-year-old lady presenting due to altered mental status. Patient is significantly altered on exam however appears to be protecting airway and there are no focal neurologic deficits. EKG notable for sinus rhythm, interventricular conduction delay, nonspecific ST segment abnormalities, no STEMI. Labs notable for no significant hematologic abnormalities, metabolic panel with mildly increased anion gap, low glucose treated with dextrose. Toxic ingestions positive for markedly elevated alcohol level. Chest x-ray with no lobar consolidation or pneumothorax. No acute traumatic injury on head CT or cervical spine CT. Patient was observed in the emergency department until clinical sobriety. Able to ambulate with a steady gait, speaking clear nonslurred speech, able to tolerate p.o. intake. The results of ED evaluation were given to the patient including prescriptions and/or symptomatic cares (if applicable) including appropriate and responsible use, followup plan, and return precautions. The patient verbalized understanding and felt safe for discharge. Medical Records I reviewed the patient's medical records. Lab Data I reviewed the patient's lab results. 04/09/22 15:10 04/09/22 15:10 Radiology Impressions Cervical Spine CT 04/09/22 14:40 IMPRESSION: 1. Negative for cervical spine fracture. 2. Mild malalignment C1-C2 that may be transient in nature related to patient rotation/positioning with rotatory subluxation to be excluded. Chest X-Ray 04/09/22 14:40 IMPRESSION: Limited but negative chest exam. Head CT 04/09/22 14:40 IMPRESSION: 1. No acute intracranial abnormalities. Laboratory Results WBC 7.4 10^3/uL (4.0-10.0) 04/09/22 15:10 RBC 4.76 10^6/uL (4.1-5.3) 04/09/22 15:10 Hgb 15.1 g/dL (11.5-15.3) 04/09/22 15:10 Hct 45.7 % (37.0-47.0) 04/09/22 15:10 MCV 96.0 fl (81-99) 04/09/22 15:10 MCH 31.7 pg (28.0-34.0) 04/09/22 15:10 MCHC 33.0 g/dL (30.0-36.0) 04/09/22 15:10 RDW 14.6 % (12.1-15.1) 04/09/22 15:10 Plt Count 389 10^3/cmm (130-400) 04/09/22 15:10 MPV 9.4 fL (7.4-10.4) 04/09/22 15:10 Neut % (Auto) 41.4 % 04/09/22 15:10 Lymph % (Auto) 46.7 % 04/09/22 15:10 [place] % (Auto) 8.4 % 04/09/22 15:10 Eos % (Auto) 1.9 % 04/09/22 15:10 Baso % (Auto) 1.2 % 04/09/22 15:10 Neut # (Auto) 3.05 10^3/uL (1.8-7.7) 04/09/22 15:10 Lymph # (Auto) 3.4 10^3/uL (0.8-4.8) 04/09/22 15:10 [place] # (Auto) 0.6 10^3/uL (0.2-0.9) 04/09/22 15:10 Eos # (Auto) 0.1 10^3/uL (0.0-0.8) 04/09/22 15:10 Baso # (Auto) 0.1 10^3/uL (0.0-0.1) 04/09/22 15:10 Nucleated RBC % (auto) 0 % 04/09/22 15:10 Nucleated RBCs # 0.0 /100WBC 04/09/22 15:10 Sodium 144 mmol/L (136-145) 04/09/22 15:10 Potassium 3.5 mmol/L (3.5-5.1) 04/09/22 15:10 Chloride 103 mmol/L (98-107) 04/09/22 15:10 Carbon Dioxide 24 mmol/L (22-29) 04/09/22 15:10 Anion Gap 20.5 (5-19) H 04/09/22 15:10 BUN 13 mg/dL (6-20) 04/09/22 15:10 Creatinine 0.7 mg/dL (0.5-0.9) 04/09/22 15:10 GFR Calculation 86.2 mL/min (90-130) L 04/09/22 15:10 Glucose 62 mg/dL (65-115) L 04/09/22 15:10 Calculated Osmolality 296 mOsm/kg (285-295) H 04/09/22 15:10 Calcium 9.1 mg/dL (8.5-10.5) 04/09/22 15:10 Total Bilirubin 0.2 mg/dL (0.15-1.2) 04/09/22 15:10 AST 25 U/L (0-32) 04/09/22 15:10 ALT 21 U/L (0-33) 04/09/22 15:10 Alkaline Phosphatase 93 U/L (35-105) 04/09/22 15:10 Total Protein 8.2 g/dL (6.6-8.7) 04/09/22 15:10 Albumin 4.9 g/dL (3.5-5.2) 04/09/22 15:10 Globulin 3.3 g/dL (1.3-4.6) 04/09/22 15:10 TSH 0.50 uIU/mL (0.27-4.20) 04/09/22 15:10 Salicylates < 0.3 mg/dL (3-10) L 04/09/22 15:10 Acetaminophen < 5.0 ug/mL (10-30) L 04/09/22 15:10 Ethyl Alcohol 416 mg/dL (0-10) H* 04/09/22 15:10 Discharge Plan Discharge Patient Disposition: Home Clinical Impression: Severe alcohol use disorder, Acute alcohol intoxication, Acute alteration in mental status, Dehydration, mild Condition: Stable Prescriptions: No Action Unable to Assess Rx Instructions: unable to verify meds with [facility] states last filled prozac 20mg tid on 02/26/22 30d/s no refills Discharge Orders: Discharge ED (Routine); Ordered 04/10/22 Ordered By: Neo Acosta Referrals: Willy Albarado FNP [Primary Care Provider] - Discharge Diet: Usual diet Discharge Activity: Resume usual activity Patient Instructions: Alcohol Intoxication (DC), Abuse of Alcohol (DC), Altered Mental Status (ED) Activity Restrictions/Additional Instructions: Thank you for visiting the emergency department. You were seen and treated for altered mental status. The most likely cause of this is related to severe alco hol intoxication. The degree of alcohol intoxication that you presented with is life-threatening however we are pleased that you had improvement on repeat exam. I recommend that you stop abusing alcohol. Failure to stop abusing alcohol will lead to or worse. Please follow-up with a primary care provider. Establish with a primary care provider if you do not currently have one. Return to the emergency department for anything that you are concerned about and feel needs emergency department evaluation. Coding Level of Care Code ED Ice Cream Vendor for Ty Morgan
--- NOTE | 2022-04-09 14:30 | PC.NURSE ---
pt is unable to answer questions for assessment from what is assumed to be intoxication. ems states pt has been drinking vodka and called ems due to being intoxicated. pt is sleeping pt will open eyes when talked to but will fall back asleep before responding. pt is on monitor, vital signs stable.
--- NOTE | 2022-04-09 14:40 | XRR_ITS ---
PROCEDURE INFORMATION: Exam: XR Chest Exam date and time: 04/09/2022 2:48 PM Age: 56 years old Clinical indication: Other: AMS, ETOH TECHNIQUE: Imaging protocol: Radiologic exam of the chest. Views: 1 view. COMPARISON: CR XR chest 1V portable [id number] 09/06/2019 11:17 AM FINDINGS: Limitations: Study is technically limited due to patient positioning and rotation. Lungs: Unremarkable. No consolidation. Pleural spaces: Unremarkable. No pleural effusion. No pneumothorax. Heart/Mediastinum: Unremarkable. No cardiomegaly. Bones/joints: Unremarkable for age. XR/XR chest 1V portable [id number] IMPRESSION: Limited but negative chest exam.
--- NOTE | 2022-04-09 14:40 | CTR_ITS ---
PROCEDURE INFORMATION: Exam: CT Cervical Spine Without Contrast Exam date and time: 04/09/2022 3:37 PM Age: 56 years old Clinical indication: Weakness and other: Unconscious due to ETOH, trauma is not known, no visible brusing; Additional info: AMS TECHNIQUE: Imaging protocol: Computed tomography of the cervical spine without contrast. Radiation optimization: All CT scans at this facility use at least one of these dose optimization techniques: automated exposure control; mA and/or kV adjustment per patient size (includes targeted exams where dose is matched to clinical indication); or iterative reconstruction. Other protocol: This patient has received [address] and 0 known cardiac nuclear medicine studies in the 12 months prior to the current study. COMPARISON: MR cervical spine wo/w [id number] 05/05/2018 8:51 AM RADIATION DOSE METRICS: Total DLP (mGy-cm): 151.35 FINDINGS: Bones/joints: There is mild malalignment C1-C2 with asymmetry of the lateral dental atlantal interspace best demonstrated in the AP projection that may be due to patient positioning/ rotation. However findings can also be seen in secondary to traumatic rotatory subluxation of C1-C2 (torticollis). Alignment of the cervical spine is otherwise unremarkable. There are no fractures or spondylolisthesis detected. There are moderate degenerative disc and endplate changes C4-C5 and C5-C6. Lungs: There is some mild biapical pleural/parenchymal thickening likely longstanding. Soft tissues: Unremarkable. CT/CT cervical spin wo con* [id number] IMPRESSION: 1. Negative for cervical spine fracture. 2. Mild malalignment C1-C2 that may be transient in nature related to patient rotation/positioning with rotatory subluxation to be excluded.
--- NOTE | 2022-04-09 14:40 | CTR_ITS ---
PROCEDURE INFORMATION: Exam: CT Head Without Contrast Exam date and time: 04/09/2022 3:37 PM Age: 56 years old Clinical indication: Injury or trauma; Fall; Unconscious; Additional info: AMS, ETOH ++++ TECHNIQUE: Imaging protocol: Computed tomography of the head without contrast. Radiation optimization: All CT scans at this facility use at least one of these dose optimization techniques: automated exposure control; mA and/or kV adjustment per patient size (includes targeted exams where dose is matched to clinical indication); or iterative reconstruction. Other protocol: This patient has received [address] and 0 known cardiac nuclear medicine studies in the 12 months prior to the current study. COMPARISON: MR head wo/w con [id number] 05/05/2018 8:51 AM RADIATION DOSE METRICS: Total DLP (mGy-cm): 1045 FINDINGS: Brain: There is no evidence of intracranial hemorrhage. There are no areas of mass effect, edema or midline shift. There are diffuse indistinct areas of decreased attenuation involving the periventricular white matter likely secondary to chronic white matter microvascular changes. There is age-related cerebral volume loss responsible for prominence of the cortical sulci. Cerebral ventricles: There is mild proportionate ventricular dilatation believed secondary to age related cerebral volume loss. Paranasal sinuses: Visualized sinuses are unremarkable. No fluid levels. Mastoid air cells: Visualized mastoid air cells are well aerated. Bones/joints: Unremarkable. No acute fracture. Soft tissues: Unremarkable. CT/CT head wo con* [id number] IMPRESSION: 1. No acute intracranial abnormalities.
--- NOTE | 2022-04-09 15:14 | PC.PHAR ---
unable to verify meds with [facility] pharmacy states last filled prozac 20mg tid on 02/26/22 30d/s no refills
[2022-04-09 15:38] LABS: Basophils # 0.1 10^3/uL (0.0-0.1); Basophils % 1.2 %; Eosinophils # 0.1 10^3/uL (0.0-0.8); Eosinophils % 1.9 %; Hematocrit 45.7 % (37.0-47.0); Hemoglobin 15.1 g/dL (11.5-15.3); Lymphocytes # 3.4 10^3/uL (0.8-4.8); Lymphocytes % 46.7 %; Mean Corpuscular Hemoglobin 31.7 pg (28.0-34.0); Mean Platelet Volume 9.4 fL (7.4-10.4); Monocytes # 0.6 10^3/uL (0.2-0.9); Monocytes % 8.4 %; Neutrophils # 3.05 10^3/uL (1.8-7.7); Neutrophils % 41.4 %; Nucleated Red Blood Cells % 0 %; Platelet Count 389 10^3/cmm (130-400); Red Blood Count 4.76 10^6/uL (4.1-5.3); Red Cell Distribution Width 14.6 % (12.1-15.1); White Blood Count 7.4 10^3/uL (4.0-10.0)
--- NOTE | 2022-04-09 16:14 | ECG_ITS ---
[facility] Test Date: 2022-04-09 Pat Name: Binta Henao Department: Room: Gender: Female Tower Hand: : 1965 Requested By: Evan Mejia Order Number: [id number] [place] MD: Lois Rose M.D. Measurements Intervals [place] Rate: 64 P: -80 NC: 158 QRS: -66 QRSD: 110 T: 77 QT: 480 QTc: 499 Interpretive Statements SINUS RHYTHM LEFT ANTERIOR FASCICULAR BLOCK [QRS AXIS <= -45, QR IN I, RS IN II] POSSIBLE ANTERIOR MYOCARDIAL INFARCTION , OF INDETERMINATE AGE [30 ms Q WAVE IN V3/V4, OR R < 0.2 mV IN V4] Compared to ECG 07/05/2018 14:52:47 Myocardial infarct finding now present Electronically Signed On 04-10-2022 0:12:34 BOOK COVERER by Lois Rose M.D. [id number]
[2022-04-09 16:17] LABS: Alanine Aminotransferase 21 U/L (0-33); Albumin Level 4.9 g/dL (3.5-5.2); Alkaline Phosphatase 93 U/L (35-105); Anion Gap 20.5 (5-19); Aspartate Amino Transferase 25 U/L (0-32); Blood Urea Nitrogen 13 mg/dL (6-20); Calcium 9.1 mg/dL (8.5-10.5); Carbon Dioxide 24 mmol/L (22-29); Chloride 103 mmol/L (98-107); Globulin 3.3 g/dL (1.3-4.6); Glomerular Filtration Rate 86.2 mL/min (90-130); Glucose 62 mg/dL (65-115); Osmolality Calculated 296 mOsm/kg (285-295); Potassium 3.5 mmol/L (3.5-5.1); Sodium 144 mmol/L (136-145); Total Bilirubin 0.2 mg/dL (0.15-1.2); Total Protein 8.2 g/dL (6.6-8.7)
[2022-04-09 16:25] LABS: Acetaminophen < 5.0 ug/mL (10-30); Alcohol Level 416 mg/dL (0-10); Salicylate < 0.3 mg/dL (3-10)
[2022-04-09] MEDS: dextrose 5%-sod chloride 0.9% 1,000 ML 150 ML IV (17:11)
[2022-04-10 01:14] VITALS: PULSE 87; RESP 16; O2SAT 97
== END 2022-04-10 01:24 | disposition home or self-care (01) ==
PROVIDERS: Emergency Provider Emergency Medicine; PCP Registered Nurse
DX: F10.229 Alcohol dependence with intoxication, unspecified (principal); Y90.8 Blood alcohol level of 240 mg/100 ml or more; E86.0 Dehydration; R41.82 Altered mental status, unspecified; G35 Multiple sclerosis
CPT/HCPCS: 36415; 70450; 71045; 72125; 80053; 80307; 84443; 85025; 93005; 99285; J7042

== ENCOUNTER 2022-06-11 13:06 | Emergency (ER) | payer MEDICAID, SELFPAY ==
[2022-06-11 13:11] VITALS: BP 110/66; PULSE 72; TEMP 36.3; O2SAT 97; BMI 18.8
[2022-06-11 14:13] LABS: Add Urine Microscopic? NO; Charge for UA Resulting for Rev
--- NOTE | 2022-06-11 14:16 | ED_ITS ---
HPI - Altered Mental Status General: Chief Complaint: Altered Mental Status Stated Complaint: AMS Time Seen by Provider: 06/11/22 13:10 History of Present Illness: 56-year-old female here in the emergency department via EMS. The patient is slurring her words and admits to drinking half a glass of wine . The patient does not recall who notified the ambulance of her intoxication. She says she was just sitting at home watching movies. She says she is very healthy and does not have any health concerns right now. Review of Systems General: Reports: ROS unobtainable due to medical condition (Patient is denying all review of systems but is noted to be intoxicated) PFS ED PFSH: Medical History DJD (degenerative joint disease), lumbar Low back pain Multiple sclerosis Osteoarthritis Seizures Surgical History No pertinent past surgical history Family History Other Lung disease Social History Smoking and tobacco status: never smoked Alcohol intake: current Alcohol intake frequency: few times a week Alcohol type: wine Adopted: No Caregiver/support person: No Lives independently: Yes Current gender identity: Female Physical Exam Narrative: Patient was asleep when I entered the room. There is a very strong smell of urine. Patient evidently urinated on herself or else has not changed her clothing recently. Her eyes show conjunctival injection bilaterally with some nystagmus and mydriasis. I do not smell any alcohol as it is covered by the scent of urine. She does not have any signs of trauma on her exam. Once I began talking with her she engaged and sat up. She seems to be trying to minimize her symptoms and her alcohol use. She told me she had half a glass of wine but is slurring her words Const: GENERAL APPEARANCE: well developed HENMT: COMMON NORMALS: normocephalic and atraumatic HEAD & SCALP: normocephalic and atraumatic Eye: SCLERA: sclerae normal Neck/C-Spine: COMMON NORMALS: supple GENERAL: Yes trachea midline Resp: COMMON NORMALS: normal respiratory effort and clear to auscultation bilaterally AUSCULTATION: clear to auscultation bilaterally Cardio: COMMON NORMALS: regular rate and regular rhythm RATE: regular rate RHYTHM: regular rhythm GI: COMMON NORMALS: Soft to palpation PALPATION: Yes Soft to palpation and No Tenderness to palpation present (GI) Extremity: GENERAL: Yes normal exam except as noted and No edema Neuro: COMMON NORMALS: moves all extremities SENSORIUM/ORIENTATION: Yes Orientation impaired and Yes somnolent Psych: MEMORY/COGNITION: Yes memory grossly impaired and Yes cognition grossly impaired Course 2 Vital Signs: Vital signs: Vital Signs Temperature 97.4 F L 06/11/22 13:11 Pulse Rate 72 06/11/22 13:11 Blood Pressure 110/66 06/11/22 13:11 Pulse Oximetry 97 06/11/22 13:11 Oxygen Delivery Me thod Room Air 06/11/22 13:11 MDM - Altered Mental Status Medical Decision Making I am not sure how or why EMS was called. I am assuming it was due to the significant intoxication. Patient does not appear to have a the trauma. Her vital signs have been stable today. She is getting fluid resuscitation. We will check her liver functions, electrolytes, hemoglobin and platelets. She smells very strongly of urine and I am not sure if that is suggestive of a urinary tract infection or whether she simply just has poor hygiene and/or urinated on herself during her intoxication Patient's workup was remarkable for alcohol level of 296 and marijuana. Otherwise, workup was unremarkable. Patient has signs of alcohol abuse. She will be discharged with sober ride and recommendation to obtain alcohol/substance abuse counseling. Lab Data 06/11/22 14:40 06/11/22 14:40 Laboratory Results WBC 8.4 10^3/uL (4.0-10.0) 06/11/22 14:40 RBC 4.23 10^6/uL (4.1-5.3) 06/11/22 14:40 Hgb 13.4 g/dL (11.5-15.3) 06/11/22 14:40 Hct 41.1 % (37.0-47.0) 06/11/22 14:40 MCV 97.2 fl (81-99) 06/11/22 14:40 MCH 31.7 pg (28.0-34.0) 06/11/22 14:40 MCHC 32.6 g/dL (30.0-36.0) 06/11/22 14:40 RDW 15.7 % (12.1-15.1) H 06/11/22 14:40 Plt Count 384 10^3/cmm (130-400) 06/11/22 14:40 MPV 9.2 fL (7.4-10.4) 06/11/22 14:40 Neut % (Auto) 60.5 % 06/11/22 14:40 Lymph % (Auto) 28.9 % 06/11/22 14:40 [place] % (Auto) 7.5 % 06/11/22 14:40 Eos % (Auto) 1.9 % 06/11/22 14:40 Baso % (Auto) 1.0 % 06/11/22 14:40 Neut # (Auto) 5.08 10^3/uL (1.8-7.7) 06/11/22 14:40 Lymph # (Auto) 2.4 10^3/uL (0.8-4.8) 06/11/22 14:40 [place] # (Auto) 0.6 10^3/uL (0.2-0.9) 06/11/22 14:40 Eos # (Auto) 0.2 10^3/uL (0.0-0.8) 06/11/22 14:40 Baso # (Auto) 0.1 10^3/uL (0.0-0.1) 06/11/22 14:40 Nucleated RBC % (auto) 0 % 06/11/22 14:40 Nucleated RBCs # 0.0 /100WBC 06/11/22 14:40 Sodium 146 mmol/L (136-145) H 06/11/22 14:40 Potassium 4.1 mmol/L (3.5-5.1) 06/11/22 14:40 Chloride 107 mmol/L (98-107) 06/11/22 14:40 Carbon Dioxide 24 mmol/L (22-29) 06/11/22 14:40 Anion Gap 19.1 (5-19) H 06/11/22 14:40 BUN 13 mg/dL (6-20) 06/11/22 14:40 Creatinine 0.5 mg/dL (0.5-0.9) 06/11/22 14:40 GFR Calculation 127.2 mL/min (90-130) 06/11/22 14:40 Glucose 69 mg/dL (65-115) 06/11/22 14:40 Calculated Osmolality 300 mOsm/kg (285-295) H 06/11/22 14:40 Calcium 8.8 mg/dL (8.5-10.5) 06/11/22 14:40 Total Bilirubin 0.2 mg/dL (0.15-1.2) 06/11/22 14:40 AST 20 U/L (0-32) 06/11/22 14:40 ALT 15 U/L (0-33) 06/11/22 14:40 Alkaline Phosphatase 87 U/L (35-105) 06/11/22 14:40 Total Protein 7.8 g/dL (6.6-8.7) 06/11/22 14:40 Albumin 4.3 g/dL (3.5-5.2) 06/11/22 14:40 Globulin 3.5 g/dL (1.3-4.6) 06/11/22 14:40 Urine Color Yellow (Yellow) 06/11/22 14:05 Urine Appearance Clear (CLEAR) 06/11/22 14:05 Urine pH 5 (5-7) 06/11/22 14:05 Ur Specific [place] 1.015 (1.005-1.030) 06/11/22 14:05 Urine Protein Neg (Negative) 06/11/22 14:05 Urine Glucose (UA) Norm (Normal) 06/11/22 14:05 Urine Ketones Negative (Negative) 06/11/22 14:05 Urine Blood Neg (Negative) 06/11/22 14:05 Urine Nitrate Negative (Negative) 06/11/22 14:05 Urine Bilirubin Neg (Negative) 06/11/22 14:05 Urine Urobilinogen Norm mg/dL (Negative) 06/11/22 14:05 Ur Leukocyte Esterase Negative (Negative) 06/11/22 14:05 Salicylates < 0.3 mg/dL (3-10) L 06/11/22 14:40 Urine Opiates Screen Negative ng/mL (Negative) 06/11/22 14:05 Acetaminophen < 5.0 ug/mL (10-30) L 06/11/22 14:40 Ur Barbiturates Screen Negative ng/mL (Negative) 06/11/22 14:05 Ur Phencyclidine Scrn Negative ng/mL (Negative) 06/11/22 14:05 Ur Amphetamines Screen Negative ng/mL (Negative) 06/11/22 14:05 U Benzodiazepines Scrn Negative ng/mL (Negative) 06/11/22 14:05 Urine Cocaine Screen Negative ng/mL (Negative) 06/11/22 14:05 U Marijuana (THC) Screen Positive ng/mL (Negative) H 06/11/22 14:05 Ethyl Alcohol 296 mg/dL (0-10) H 06/11/22 14:40 Discharge Plan Discharge Condition: Stable Prescriptions: No Action No Known Home Medications Referrals: Willy Albarado FNP [Primary Care Provider] - Coding Level of Care Code ED Communication Arts Lecturer for Ty Morgan
[2022-06-11 14:28] LABS: Urine Color Yellow (Yellow)
[2022-06-11 14:31] LABS: Bilirubin Urine Neg (Negative); Blood Urine Neg (Negative); Glucose Urine UA Norm (Normal); Ketones Urine Negative (Negative); Leukocyte Esterase Urine Negative (Negative); Nitrate Urine Negative (Negative); Protein Urine Neg (Negative); Specific Gravity, Urine 1.015 (1.005-1.030); Urine Appearance Clear (CLEAR); Urobilinogen Urine Norm (Negative); pH Urine 5 (5-7)
[2022-06-11 14:37] LABS: Amphetamines Screen Urine Negative (Negative); Barbiturates Screen Urine Negative (Negative); Benzodiazepines Screen Urine Negative (Negative); Cocaine Screen Urine Negative (Negative); Opiate Screen Urine Negative (Negative); PCP Screen Urine Negative (Negative); THC Screen Urine Positive (Negative)
[2022-06-11] MEDS: sodium chloride 0.9% 1,000 ML 999 ML IV (14:43)
[2022-06-11 14:51] LABS: Basophils # 0.1 10^3/uL (0.0-0.1); Eosinophils # 0.2 10^3/uL (0.0-0.8); Eosinophils % 1.9 %; Hematocrit 41.1 % (37.0-47.0); Hemoglobin 13.4 g/dL (11.5-15.3); Lymphocytes # 2.4 10^3/uL (0.8-4.8); Lymphocytes % 28.9 %; Mean Corpuscular HGB Conc 32.6 g/dL (30.0-36.0); Mean Corpuscular Hemoglobin 31.7 pg (28.0-34.0); Mean Corpuscular Volume 97.2 fl (81-99); Mean Platelet Volume 9.2 fL (7.4-10.4); Monocytes # 0.6 10^3/uL (0.2-0.9); Monocytes % 7.5 %; Neutrophils # 5.08 10^3/uL (1.8-7.7); Neutrophils % 60.5 %; Nucleated Red Blood Cells % 0 %; Platelet Count 384 10^3/cmm (130-400); Red Blood Count 4.23 10^6/uL (4.1-5.3); Red Cell Distribution Width 15.7 % (12.1-15.1); White Blood Count 8.4 10^3/uL (4.0-10.0)
[2022-06-11 15:10] LABS: Alanine Aminotransferase 15 U/L (0-33); Albumin Level 4.3 g/dL (3.5-5.2); Alcohol Level 296 mg/dL (0-10); Alkaline Phosphatase 87 U/L (35-105); Anion Gap 19.1 (5-19); Aspartate Amino Transferase 20 U/L (0-32); Blood Urea Nitrogen 13 mg/dL (6-20); Calcium 8.8 mg/dL (8.5-10.5); Carbon Dioxide 24 mmol/L (22-29); Chloride 107 mmol/L (98-107); Globulin 3.5 g/dL (1.3-4.6); Glomerular Filtration Rate 127.2 mL/min (90-130); Glucose 69 mg/dL (65-115); Osmolality Calculated 300 mOsm/kg (285-295); Potassium 4.1 mmol/L (3.5-5.1); Sodium 146 mmol/L (136-145); Total Bilirubin 0.2 mg/dL (0.15-1.2); Total Protein 7.8 g/dL (6.6-8.7)
[2022-06-11 15:12] LABS: Acetaminophen < 5.0 ug/mL (10-30); Salicylate < 0.3 mg/dL (3-10)
== END 2022-06-11 19:26 | disposition home or self-care (01) ==
PROVIDERS: Emergency Provider Emergency Medicine; PCP Registered Nurse
DX: R41.82 Altered mental status, unspecified (principal); F10.129 Alcohol abuse with intoxication, unspecified; Y90.8 Blood alcohol level of 240 mg/100 ml or more; G35 Multiple sclerosis
CPT/HCPCS: 36415; 80053; 80306; 80307; 81003; 85025; 96360; 99284; J7030

== ENCOUNTER 2022-06-12 13:28 | Emergency (ER) | payer MEDICAID, SELFPAY ==
--- NOTE | 2022-06-12 13:44 | W.ED.ALCOHOL ---
HPI - Alcohol General: Chief Complaint: Alcohol Stated Complaint: intoxication Time Seen by Provider: 06/12/22 13:38 Source: EMS Mode of arrival: EMS History of Present Illness: This patient was transported to the emergency department by EMS. Allegedly the mental health case manager of the apartment complex in which she resides called EMS after he found her passed out. She was at this emergency department yesterday because of alcohol related issues. Are a history was limited by her uncooperative nature and less than forthcoming communication. MD complaint: alcohol intoxication Previous visits for alcohol intoxication: Yes Recent trauma: No PFSH ED PFSH: Medical History DJD (degenerative joint disease), lumbar Low back pain Multiple sclerosis Osteoarthritis Seizures Surgical History No pertinent past surgical history Family History Other Lung disease Social History Smoking and tobacco status: never smoked Alcohol intake: current Alcohol intake frequency: few times a week Alcohol type: wine Adopted: No Caregiver/support person: No Lives independently: Yes Current gender identity: Female Physical Exam Narrative: EXAM NARRATIVE: The patient is alert and awake. She communicates very minimally and when she does so in a very slurred and dysarthric voice. Her breath smells significant Sandip of alcohol. Const: COMMON NORMALS: average body habitus and alert GENERAL APPEARANCE: disheveled and odor of alcohol detected HENMT: COMMON NORMALS: normocephalic, atraumatic, Normal nasal mucous membranes and turbinates present, moist oral mucous membranes and oropharynx normal HEAD & SCALP: normocephalic and atraumatic NOSE: Normal nasal mucous membranes and turbinates present Eye: COMMON NORMALS: Equal, round and reactive pupils present CONJUNCTIVA: Yes conjunctival abnormal (Injected) PUPIL: Yes Equal, round and reactive pupils present Neck/C-Spine: COMMON NORMALS: full ROM, supple and no JVD Chest: COMMONS NORMALS: normal inspection of the chest Resp: COMMON NORMALS: normal respiratory effort, No use of accessory muscles and clear to auscultation bilaterally AUSCULTATION: clear to auscultation bilaterally Cardio: COMMON NORMALS: no JVD, regular rate, regular rhythm and Peripheral pulses 2+ throughout RATE: regular rate RHYTHM: regular rhythm PERIPHERAL PULSES: Peripheral pulses 2+ throughout GI: COMMON NORMALS: Normal to inspection, nondistended, normoactive bowel sounds present and Soft to palpation PALPATION: Yes Soft to palpation : COMMON NORMALS: Yes no CVA tenderness BLADDER/KIDNEY EXAM: Yes no CVA tenderness Back/Pelvis: COMMON NORMALS: no CVA tenderness, thoracic and lumbar spine normal to inspection, no thoracic nor lumbar tenderness and thoraco-lumbar ROM normal Extremity: COMMON NORMALS: normal to inspection, full ROM, capillary refill normal, no calf tenderness and no pedal edema Neuro: TOYA COMA SCALE: document GCS findings [place] coma scale eye opening: Spontaneous [place] coma scale verbal response: Confused [place] coma scale motor response: Abnormal flexion Toya coma scale total score: 11 SENSORIUM/ORIENTATION: Yes alert Skin: COMMON NORMALS: no rashes or lesions noted, no wounds and turgor normal GENERAL SKIN EXAM: no rashes or lesions noted and turgor normal Course Reevaluation(s): Reevaluation #1: clinical services assistant left a message with the patient's family but is unable to contact anyone at this time. She seems to be more responsive and alert and communicative at this time. Time: 15:09 Reevaluation #2: Patient was reevaluated. She is much more alert and awake. She continues to improve regarding her level of interaction. She is starting to drink fluids and we will reassess in a couple more hours to ensure her stability and plan for discharge back home. Time: 18:48 Reevaluation #3: Patient continues to improve and is much more alert and interactive. She desires to be discharged from the emergency department at this time. Discussed her alcohol use disorder and she acknowledges our discussion but has no plans on discontinuing at this time. She has improved to the point where she is stable to be discharged with a ride to her normal domicile. Time: 20:01 [facility] - Alcohol Medical Decision Making Patient returns to this emergency department significantly intoxicated based on history and current findings. We will go ahead and proceed with patient evaluation, observation and social psychologist involvement. The patient received IV hydration continued observation in the emergency department. She steadily improved with increased increasing improvement in her sensorium and ability to communicate and interact in an appropriate fashion. She was observed to drink fluids and eat while in the emergency department. She eventually came to the point where she did wanted to be discharged from emergency department and she will be discharged to a ride service to take her back to her normal domicile. Differential Diagnosis Likely alcohol intoxication Medical Records I reviewed the patient's medical records. Lab Data I reviewed the patient's lab results. 06/12/22 15:20 06/12/22 15:20 Laboratory Results WBC 6.6 10^3/uL (4.0-10.0) 06/12/22 15:20 RBC 4.43 10^6/uL (4.1-5.3) 06/12/22 15:20 Hgb 14.4 g/dL (11.5-15.3) 06/12/22 15:20 Hct 43.4 % (37.0-47.0) 06/12/22 15:20 MCV 98.0 fl (81-99) 06/12/22 15:20 MCH 32.5 pg (28.0-34.0) 06/12/22 15:20 MCHC 33.2 g/dL (30.0-36.0) 06/12/22 15:20 RDW 15.9 % (12.1-15.1) H 06/12/22 15:20 Plt Count 363 10^3/cmm (130-400) 06/12/22 15:20 MPV 9.0 fL (7.4-10.4) 06/12/22 15:20 Neut % (Auto) 46.0 % 06/12/22 15:20 Lymph % (Auto) 41.3 % 06/12/22 15:20 [place] % (Auto) 9.0 % 06/12/22 15:20 Eos % (Auto) 2.3 % 06/12/22 15:20 Baso % (Auto) 1.2 % 06/12/22 15:20 Neut # (Auto) 3.06 10^3/uL (1.8-7.7) 06/12/22 15:20 Lymph # (Auto) 2.7 10^3/uL (0.8-4.8) 06/12/22 15:20 [place] # (Auto) 0.6 10^3/uL (0.2-0.9) 06/12/22 15:20 Eos # (Auto) 0.2 10^3/uL (0.0-0.8) 06/12/22 15:20 Baso # (Auto) 0.1 10^3/uL (0.0-0.1) 06/12/22 15:20 Nucleated RBC % (auto) 0 % 06/12/22 15:20 Nucleated RBCs # 0.0 /100WBC 06/12/22 15:20 Sodium 146 mmol/L (136-145) H 06/12/22 15:20 Potassium 3.7 mmol/L (3.5-5.1) 06/12/22 15:20 Chloride 103 mmol/L (98-107) 06/12/22 15:20 Carbon Dioxide 27 mmol/L (22-29) 06/12/22 15:20 Anion Gap 19.7 (5-19) H 06/12/22 15:20 BUN 9 mg/dL (6-20) 06/12/22 15:20 Creatinine 0.4 mg/dL (0.5-0.9) L 06/12/22 15:20 GFR Calculation 164.5 mL/min (90-130) H 06/12/22 15:20 Glucose 79 mg/dL (65-115) 06/12/22 15:20 Calculated Osmolality 300 mOsm/kg (285-295) H 06/12/22 15:20 Calcium 9.0 mg/dL (8.5-10.5) 06/12/22 15:20 Magnesium 2.0 mg/dL (1.7-2.3) 06/12/22 15:20 Total Bilirubin 0.2 mg/dL (0.15-1.2) 06/12/22 15:20 AST 29 U/L (0-32) 06/12/22 15:20 ALT 18 U/L (0-33) 06/12/22 15:20 Alkaline Phosphatase 97 U/L (35-105) 06/12/22 15:20 Total Protein 7.9 g/dL (6.6-8.7) 06/12/22 15:20 Albumin 4.4 g/dL (3.5-5.2) 06/12/22 15:20 Globulin 3.5 g/dL (1.3-4.6) 06/12/22 15:20 Ethyl Alcohol 427 mg/dL (0-10) H* 06/12/22 15:20 Discharge Plan Discharge Patient Disposition: Home Clinical Impression: Alcohol use disorder Condition: Stable Prescriptions: No Action Unable to Assess Discharge Orders: Discharge ED (Routine); Ordered 06/12/22 Ordered By: Mich Limon Referrals: Willy Albarado FNP [Primary Care Provider] - Discharge Diet: Usual diet Discharge Activity: Increase activity as tolerated Patient Instructions: Opioid Safety, Pain Management Activity Restrictions/Additional Instructions: Do not drink alcohol is continued heavy consumption of alcohol will lead to deterioration in your lifestyle and ultimately . You are welcome to return to the emergency department anytime for reevaluation or concerns. Coding Level of Care Code ED Beveler for Ty Morgan
[2022-06-12 15:36] LABS: Basophils # 0.1 10^3/uL (0.0-0.1); Basophils % 1.2 %; Eosinophils # 0.2 10^3/uL (0.0-0.8); Eosinophils % 2.3 %; Hematocrit 43.4 % (37.0-47.0); Hemoglobin 14.4 g/dL (11.5-15.3); Lymphocytes # 2.7 10^3/uL (0.8-4.8); Lymphocytes % 41.3 %; Mean Corpuscular HGB Conc 33.2 g/dL (30.0-36.0); Mean Corpuscular Hemoglobin 32.5 pg (28.0-34.0); Monocytes # 0.6 10^3/uL (0.2-0.9); Neutrophils # 3.06 10^3/uL (1.8-7.7); Nucleated Red Blood Cells % 0 %; Platelet Count 363 10^3/cmm (130-400); Red Blood Count 4.43 10^6/uL (4.1-5.3); Red Cell Distribution Width 15.9 % (12.1-15.1); White Blood Count 6.6 10^3/uL (4.0-10.0)
[2022-06-12 15:55] LABS: Alanine Aminotransferase 18 U/L (0-33); Albumin Level 4.4 g/dL (3.5-5.2); Alkaline Phosphatase 97 U/L (35-105); Anion Gap 19.7 (5-19); Aspartate Amino Transferase 29 U/L (0-32); Blood Urea Nitrogen 9 mg/dL (6-20); Carbon Dioxide 27 mmol/L (22-29); Chloride 103 mmol/L (98-107); Globulin 3.5 g/dL (1.3-4.6); Glomerular Filtration Rate 164.5 mL/min (90-130); Glucose 79 mg/dL (65-115); Osmolality Calculated 300 mOsm/kg (285-295); Potassium 3.7 mmol/L (3.5-5.1); Sodium 146 mmol/L (136-145); Total Bilirubin 0.2 mg/dL (0.15-1.2); Total Protein 7.9 g/dL (6.6-8.7)
[2022-06-12 15:56] LABS: Alcohol Level 427 mg/dL (0-10)
--- NOTE | 2022-06-12 16:30 | PC.PHAR ---
unable to verify medications with pt-pt was here on 06/11/22 med rec was done by alex and had no known medications
== END 2022-06-12 21:17 | disposition home or self-care (01) ==
PROVIDERS: Emergency Provider Emergency Medicine; PCP Registered Nurse
DX: F10.929 Alcohol use, unspecified with intoxication, unspecified (principal); Y90.8 Blood alcohol level of 240 mg/100 ml or more; G35 Multiple sclerosis
CPT/HCPCS: 36415; 80053; 80307; 83735; 85025; 99283

== ENCOUNTER 2022-09-12 13:15 | Emergency (ER) | payer MEDICAID, SELFPAY ==
[2022-09-12 13:19] VITALS: BP 121/74; PULSE 98; RESP 16; TEMP 36.6; O2SAT 95
[2022-09-12 13:33] LABS: Glucose Point of Care 76 mg/dL (70-110)
[2022-09-12 13:50] LABS: Basophils # 0.1 10^3/uL (0.0-0.1); Eosinophils # 0.2 10^3/uL (0.0-0.8); Eosinophils % 2.9 %; Hematocrit 41.1 % (37.0-47.0); Hemoglobin 13.8 g/dL (11.5-15.3); Lymphocytes # 3.9 10^3/uL (0.8-4.8); Lymphocytes % 47.7 %; Mean Corpuscular HGB Conc 33.6 g/dL (30.0-36.0); Mean Corpuscular Hemoglobin 31.2 pg (28.0-34.0); Mean Corpuscular Volume 92.8 fl (81-99); Mean Platelet Volume 9.2 fL (7.4-10.4); Monocytes # 0.6 10^3/uL (0.2-0.9); Monocytes % 7.8 %; Neutrophils # 3.29 10^3/uL (1.8-7.7); Neutrophils % 40.4 %; Nucleated Red Blood Cells % 0 %; Platelet Count 347 10^3/cmm (130-400); Red Blood Count 4.43 10^6/uL (4.1-5.3); Red Cell Distribution Width 15.2 % (12.1-15.1); White Blood Count 8.2 10^3/uL (4.0-10.0)
[2022-09-12 14:17] LABS: Alanine Aminotransferase 23 U/L (0-33); Albumin Level 4.7 g/dL (3.5-5.2); Alkaline Phosphatase 98 U/L (35-105); Anion Gap 20.8 (5-19); Aspartate Amino Transferase 23 U/L (0-32); Blood Urea Nitrogen 11 mg/dL (6-20); Calcium 8.9 mg/dL (8.5-10.5); Carbon Dioxide 21 mmol/L (22-29); Chloride 103 mmol/L (98-107); Globulin 3.2 g/dL (1.3-4.6); Glomerular Filtration Rate 163.9 mL/min (90-130); Glucose 72 mg/dL (65-115); Osmolality Calculated 290 mOsm/kg (285-295); Potassium 3.8 mmol/L (3.5-5.1); Sodium 141 mmol/L (136-145); Total Bilirubin 0.2 mg/dL (0.15-1.2); Total Protein 7.9 g/dL (6.6-8.7)
[2022-09-12 14:20] LABS: Acetaminophen < 5.0 ug/mL (10-30); Salicylate < 0.3 mg/dL (3-10)
[2022-09-12 14:22] LABS: Alcohol Level 476 mg/dL (0-10)
--- NOTE | 2022-09-12 14:27 | PC.NURSE ---
RN WENT IN TO GIVE ATIVAN PT WAS ASLEEP IN BED UNABLE TO ANSWER QUESTIONS DUE TO INTOXICATION. VITAL SIGNS ARE STABLE AT THIS TIME AND BREATHING IS EVEN AND UNLABORED
[2022-09-12 14:45] VITALS: BP 116/69; PULSE 75; RESP 18; O2SAT 96
[2022-09-12] MEDS: sodium chloride 0.9% 1,000 ML 999 ML IV ×2 (15:09→16:12)
--- NOTE | 2022-09-12 15:51 | W.ED.ALCOHOL ---
HPI - Alcohol General: Chief Complaint: Alcohol Stated Complaint: ETOH/ depression Time Seen by Provider: 09/12/22 13:19 History of Present Illness: 57 years old female brought to emergency room by EMS after patient was found intoxicated by family member. She further reviews that she has been drinking a lot of alcohol within the past 24 hours. She denies any other drug abuse. [place] any hallucination, suicidal ideation homicidal ideation. Associated symptoms: Deny depression Review of Systems General: Reports: 10 or more systems reviewed and unremarkable except in HPI and below Const: Denies: fever(s), chills, body aches, change in appetite, change in weight, fatigue or malaise Psych: Reports: anxiety; Denies: depression, mood swings, panic attacks, sleeping more, hopelessness or irritability PFS ED PFSH: Medical History DJD (degenerative joint disease), lumbar Low back pain Multiple sclerosis Osteoarthritis Seizures Surgical History No pertinent past surgical history Family History Other Lung disease Social History Smoking and tobacco status: never smoked Alcohol intake: current Alcohol intake frequency: few times a week Alcohol type: wine Substance/Drug Use: never Adopted: No Caregiver/support person: No Lives independently: Yes Do you think of yourself as: Straight/Heterosexual Current gender identity: Female Physical Exam Const: COMMON NORMALS: no acute distress, average body habitus, patient oriented x3, no limitations, healthy appearing, alert and well nourished GENERAL APPEARANCE: other (Intoxicated smells of alcohol Able to follow commands) HENMT: COMMON NORMALS: normocephalic, atraumatic, hearing grossly normal bilaterally, external ears normal, EAC's normal, TM's normal bilaterally, Normal external nose present, Normal nasal mucous membranes and turbinates present, moist oral mucous membranes, oropharynx normal, dentition normal and gingiva normal HEAD & SCALP: normocephalic and atraumatic NOSE: Normal external nose present and Normal nasal mucous membranes and turbinates present EXTERNAL EAR: Yes external ears normal EXTERNAL AUDITORY CANAL: EAC's normal TYMPANIC MEMBRANE: TM's normal bilaterally Neck/C-Spine: COMMON NORMALS: full ROM, no lymphadenopathy, supple, no meningeal signs, no JVD, Thyroid normal and No carotid bruits THYROID: Thyroid normal Chest: COMMONS NORMALS: normal inspection of the chest, normal palpation of entire chest wall, normal inspection of the breasts and normal palpation of the breasts Breast/axilla inspection: Yes normal inspection of the breasts BREAST/AXILLA PALPATION: Yes normal palpation of the breasts Resp: COMMON NORMALS: normal respiratory effort, No retractions, No use of accessory muscles, clear to auscultation bilaterally and percussion normal AUSCULTATION: clear to auscultation bilaterally PERCUSSION: percussion normal Cardio: COMMON NORMALS: no JVD Neuro: COMMON NORMALS: patient oriented x3 SENSORIUM/ORIENTATION: Yes alert MENINGEAL SIGNS: Yes no meningeal signs Course Vital Signs: Vital signs: Vital Signs Temperature 97.9 F 09/12/22 13:19 Pulse Rate 99 09/12/22 17:56 Respiratory Rate 16 09/12/22 17:56 Blood Pressure 123/68 09/12/22 17:56 Pulse Oximetry 97 09/12/22 17:56 Oxygen Delivery Me thod Room Air 09/12/22 17:56 MDM - Alcohol Medical Decision Making Patient was monitored here for several hours. She was given Ativan, IV fluid and remained stable without any acute distress. Patient was discharged home with a family member. Differential Diagnosis Likely alcohol withdrawal delirium, hypomagnesemia, alcohol intoxication, alcohol ketoacidosis, alcohol withdrawal syndrome and alcohol withdrawal seizure Lab Data 09/12/22 13:31 09/12/22 13:31 Laboratory Results WBC 8.2 10^3/uL (4.0-10.0) 09/12/22 13:31 RBC 4.43 10^6/uL (4.1-5.3) 09/12/22 13:31 Hgb 13.8 g/dL (11.5-15.3) 09/12/22 13:31 Hct 41.1 % (37.0-47.0) 09/12/22 13:31 MCV 92.8 fl (81-99) 09/12/22 13:31 MCH 31.2 pg (28.0-34.0) 09/12/22 13:31 MCHC 33.6 g/dL (30.0-36.0) 09/12/22 13:31 RDW 15.2 % (12.1-15.1) H 09/12/22 13:31 Plt Count 347 10^3/cmm (130-400) 09/12/22 13:31 MPV 9.2 fL (7.4-10.4) 09/12/22 13:31 Neut % (Auto) 40.4 % 09/12/22 13:31 Lymph % (Auto) 47.7 % 09/12/22 13:31 [place] % (Auto) 7.8 % 09/12/22 13:31 Eos % (Auto) 2.9 % 09/12/22 13:31 Baso % (Auto) 1.0 % 09/12/22 13:31 Neut # (Auto) 3.29 10^3/uL (1.8-7.7) 09/12/22 13:31 Lymph # (Auto) 3.9 10^3/uL (0.8-4.8) 09/12/22 13:31 [place] # (Auto) 0.6 10^3/uL (0.2-0.9) 09/12/22 13:31 Eos # (Auto) 0.2 10^3/uL (0.0-0.8) 09/12/22 13:31 Baso # (Auto) 0.1 10^3/uL (0.0-0.1) 09/12/22 13:31 Nucleated RBC % (auto) 0 % 09/12/22 13:31 Nucleated RBCs # 0.0 /100WBC 09/12/22 13:31 Sodium 141 mmol/L (136-145) 09/12/22 13:31 Potassium 3.8 mmol/L (3.5-5.1) 09/12/22 13:31 Chloride 103 mmol/L (98-107) 09/12/22 13:31 Carbon Dioxide 21 mmol/L (22-29) L 09/12/22 13:31 Anion Gap 20.8 (5-19) H 09/12/22 13:31 BUN 11 mg/dL (6-20) 09/12/22 13:31 Creatinine 0.4 mg/dL (0.5-0.9) L 09/12/22 13:31 GFR Calculation 163.9 mL/min (90-130) H 09/12/22 13:31 Glucose 72 mg/dL (65-115) 09/12/22 13:31 POC Glucose 76 mg/dL (70-110) 09/12/22 13:29 Calculated Osmolality 290 mOsm/kg (285-295) 09/12/22 13:31 Calcium 8.9 mg/dL (8.5-10.5) 09/12/22 13:31 Total Bilirubin 0.2 mg/dL (0.15-1.2) 09/12/22 13:31 AST 23 U/L (0-32) 09/12/22 13:31 ALT 23 U/L (0-33) 09/12/22 13:31 Alkaline Phosphatase 98 U/L (35-105) 09/12/22 13:31 Total Protein 7.9 g/dL (6.6-8.7) 09/12/22 13:31 Albumin 4.7 g/dL (3.5-5.2) 09/12/22 13:31 Globulin 3.2 g/dL (1.3-4.6) 09/12/22 13:31 Salicylates < 0.3 mg/dL (3-10) L 09/12/22 13:31 Acetaminophen < 5.0 ug/mL (10-30) L 09/12/22 13:31 Ethyl Alcohol 476 mg/dL (0-10) H* 09/12/22 13:31 Discharge Plan Discharge Patient Disposition: Home Clinical Impression: Alcoholic intoxication Condition: Stable Prescriptions: No Action Unable to Assess Discharge Orders: Discharge ED (Routine); Ordered 09/12/22 Ordered By: Heriberto Hernandez Referrals: Willy Albarado, FOOD PRODUCTION SUPERVISOR [Primary Care Provider] - Discharge Diet: Advance as tolerated Discharge Activity: Resume usual activity Patient Instructions: Opioid Safety, Pain Management Coding Level of Care Code ED Rehab Specialist for Ty Morgan
[2022-09-12 16:13] VITALS: BP 101/68; PULSE 102; RESP 16; O2SAT 97
[2022-09-12 16:49] VITALS: BP 109/50; PULSE 92; RESP 18; O2SAT 98
[2022-09-12 17:56] VITALS: BP 123/68; PULSE 99; RESP 16; O2SAT 97
== END 2022-09-12 20:09 | disposition home or self-care (01) ==
PROVIDERS: Emergency Provider Family Medicine; PCP Registered Nurse
DX: F10.129 Alcohol abuse with intoxication, unspecified (principal); Y90.8 Blood alcohol level of 240 mg/100 ml or more; G35 Multiple sclerosis
CPT/HCPCS: 36416; 80053; 80307; 82962; 85025; 96360; 99284; J7030

== ENCOUNTER → 2023-02-19 13:31 | Outpatient (BNVA) | payer MEDICAID, SELFPAY | PROVIDERS: PCP Registered Nurse; Visit Provider Registered Nurse | DX: F32.9 Major depressive disorder, single episode, unspecified (principal); G35 Multiple sclerosis; E78.5 Hyperlipidemia, unspecified; E53.8 Deficiency of other specified B group vitamins; E55.9 Vitamin D deficiency, unspecified; Z12.11 Encounter for screening for malignant neoplasm of colon; Z00.00 Encounter for general adult medical examination without abnormal findings; Z12.31 Encounter for screening mammogram for malignant neoplasm of breast | CPT/HCPCS: 80053; 80061; 81000; 82306; 82607 ==

== ENCOUNTER → 2023-03-06 10:18 | Outpatient (BNVA) | payer MEDICAID, SELFPAY | PROVIDERS: PCP Registered Nurse; Visit Provider Registered Nurse | DX: N39.0 Urinary tract infection, site not specified (principal) | CPT/HCPCS: 81000; 87086 ==

== ENCOUNTER 2023-03-10 12:51 | Outpatient (CLI) | payer MEDICAID, SELFPAY ==
--- NOTE | 2023-03-10 13:03 | MM_ITS ---
WS: [id number] BILATERAL 3D TOMOSYNTHESIS DIGITAL SCREENING MAMMOGRAPHY WITH CAD CLINICAL INFORMATION: Z12.31 - Encounter for screening mammogram for malignant ... HISTORY: Screening mammogram. No current complaints. COMPARISON: None available TECHNIQUE: Bilateral CC and MLO views. FINDINGS: Bilateral breast implants appear intact. Scattered fibroglandular densities bilaterally. Small ovoid asymmetry deep to the RIGHT [place] measur ing 8 mm. Recommend further evaluation with ultrasound. Few tiny incidental punctate and lucent cente red calcifications. LEFT breast is unremarkable. IMPRESSION: MM/[place] [id number] BI-RADS: 0-Incomplete: Need additional imaging evaluation FOLLOW UP: Need Additional Imaging Recommend RIGHT breast ultrasound at the [place].
== END 2023-03-10 12:52 | disposition home or self-care (01) ==
LOC: RAD 12:52
PROVIDERS: PCP Registered Nurse; Visit Provider Registered Nurse
DX: Z12.31 Encounter for screening mammogram for malignant neoplasm of breast (principal)
CPT/HCPCS: 77063; 77067

== ENCOUNTER 2023-03-24 14:53 | Outpatient (CLI) | payer MEDICAID, SELFPAY ==
--- NOTE | 2023-03-24 14:58 | US_ITS ---
WS: [id number] ULTRASOUND BREAST RIGHT TECHNIQUE: Ultrasound right breast focused area of concern. CLINICAL INFORMATION: ABN MAMMOGRAM COMPARISON: 03/10/2023 FINDINGS: Ultrasound RIGHT breast at the [place]. Normal underlying parenchymal tissue. No cystic or solid lesio ns. No suspicious findings to target for biopsy. Recommend return to annual screen mammography. IMPRESSION: BI-RADS 2 benign Recommend return to annual screening mammography.
== END 2023-03-24 14:54 | disposition home or self-care (01) ==
LOC: RAD 14:55
PROVIDERS: PCP Registered Nurse; Visit Provider Registered Nurse
DX: R92.8 Other abnormal and inconclusive findings on diagnostic imaging of breast (principal)
CPT/HCPCS: 76642

== ENCOUNTER → 2023-08-14 07:47 | Outpatient (BNVA) | payer MEDICAID, SELFPAY | PROVIDERS: PCP Registered Nurse; Referring Provider Registered Nurse; Visit Provider Surgery | DX: K21.9 Gastro-esophageal reflux disease without esophagitis (principal); R10.13 Epigastric pain; Z12.11 Encounter for screening for malignant neoplasm of colon | CPT/HCPCS: 99204 ==

== ENCOUNTER 2023-09-07 07:06 | Outpatient (CLI) | payer MEDICAID, SELFPAY ==
--- NOTE | 2023-09-07 07:30 | US_ITS ---
WS: [id number] ULTRASOUND ABDOMEN LIMITED CLINICAL INFORMATION: epigastric pain COMPARISON: None. FINDINGS: Liver Size: Mild hepatomegaly. Craniocaudal length: 16.6 cm. Echogenicity: Normal. Surface nodularity: None. Mass (size and location): None. Bile ducts Intrahepatic ducts: Normal. Common bile duct diameter: 0.3 cm. Gallbladder Normal. Gallstones: None. Gallbladder sludge: None. Gallbladder wall thickening: None. Pericholecystic fluid: None. Sonographic Cornejo sign: Absent. Pancreas Normal as visualized. Right kidney: Normal. Hydronephrosis: None. Size: 10.3 cm x 4.9 cm x 4.4 cm. Abdominal aorta and IVC Visualized portions are normal. Ascites: None. US/US gall bladder [id number] IMPRESSION: 1. Mild hepatomegaly. 2. Normal gallbladder. 3. Normal common bile duct.
== END 2023-09-07 07:07 | disposition home or self-care (01) ==
LOC: RAD 07:06
PROVIDERS: PCP Registered Nurse; Visit Provider Surgery
DX: R10.13 Epigastric pain (principal); K21.9 Gastro-esophageal reflux disease without esophagitis; R16.0 Hepatomegaly, not elsewhere classified
CPT/HCPCS: 76705

== ENCOUNTER 2023-10-14 05:59 | Day surgery (SDC) | payer MEDICAID, SELFPAY ==
[2023-10-14 06:12] VITALS: BP 116/66; PULSE 60; RESP 18; TEMP 36.3; O2SAT 97
[2023-10-14 06:14] VITALS: BMI 17.7
[2023-10-14] MEDS: sodium chloride 0.9% 1,000 ML 30 ML IV (06:25)
--- NOTE | 2023-10-14 06:53 | ANES.PREANE2 ---
Pre-Anesthetic Assessment Height/Weight: Height 1.68 m Weight 49.895 kg Temp Pulse Resp BP Pulse Ox O2 Del Method 97.3 F L 60 18 116/66 97 Room Air 10/14/23 06:12 10/14/23 06:12 10/14/23 06:12 10/14/23 06:12 10/14/23 06:12 10/14/23 06:12 Operation Date: 10/14/23 07:00 Proposed Procedures p EGD 01126, 91491, G0121, K21.9, Z12.11 R10.13(Not Applicable) - Cassius Tapia DO s Colonoscopy(Not Applicable) - Cassius Tapia DO Familial anesthetic complications: none Was Beta Michelle taken within 24 hours: N/A Was Clonidine taken within 24 hours: N/A Last intake: Intake Last Liquid Date 10/13/23 Last Liquid Time 21:00 Last Solid Date 10/12/23 Last Solid Time 18:00 Social Tobacco and No alcohol 3 cigs pack(s) per day Exam alert and oriented x 3 Airway Submandibular: within normal limits Cervical ROM: within normal limits Mallampati: Class I Dentition: partials (partial top plate- removed) Pulmonary None reported CV/HEM None reported None reported Hepatic None reported GI Gastroesophageal Reflux Disease Metabolic None reported Musc/skel Lower Back Pain and Rheumatoid Arthritis MS Neuropsych Depression and Seizure Anesthetic Plan ASA status: 3 Anesthesia: Anesthesia Evaluation, General and MAC Risk of > 500 ml blood loss (7ml/kg in children): No Medications/Allergies Home Medications Medication Instructions Recorded Confirmed Last Taken Type baclofen 10 mg tablet 10 mg PO TID 02/19/23 10/14/23 10/13/23 History ergocalciferol (vitamin D2) 1,250 1,250 mcg PO .weekly 90 days #12 02/26/23 10/12/23 10/09/23 Rx mcg (50,000 unit) capsule (Vitamin caps D2) Bathroom hand rails #1 ea 03/06/23 08/14/23 Unknown Rx dimethyl fumarate 240 mg 240 mg PO BID 08/14/23 10/12/23 10/12/23 History capsule,delayed release (Tecfidera) pantoprazole 40 mg tablet,delayed 40 mg PO BID 6 weeks #84 tabs 08/14/23 10/14/23 10/13/23 Rx release duloxetine 20 mg capsule,delayed 20 mg PO BID #180 caps 09/24/23 10/14/23 10/13/23 Rx release gabapentin 100 mg capsule 100 mg PO TID 10/12/23 10/14/23 10/13/23 History Allergies Allergy/AdvReac Type Severity Reaction Status Date / Time No Known Allergies Allergy Verified 10/12/23 09:22 Current Medications Generic Name Dose Route Start Last Admin Trade Name Freq PRN Reason Stop Dose Admin Sodium Chloride 1,000 mls @ 30 mls/hr 10/14/23 06:15 10/14/23 06:25 Sodium Chloride 0.9% IV 10/15/23 06:14 30 mls/hr .Q24H HANY Administration PFSH Anesthesia Medical History DJD (degenerative joint disease), lumbar Seizures Low back pain Osteoarthritis Multiple sclerosis Surgical History No pertinent past surgical history Family History Other Lung disease Social History Smoking and tobacco/nicotine status: never used tobacco/nicotine Alcohol intake: current Alcohol intake frequency: 3 or more drinks per day Alcohol type: wine Substance/Drug Use: never Adopted: No Caregiver/support person: No Lives independently: Yes Do you think of yourself as: Straight/Heterosexual Current gender identity: Female Data Anesthesia Cardiac Studies: No Data to Display
--- NOTE | 2023-10-14 07:02 | P.HP_ITS ---
Providers/Chief Complaint Primary Care Provider: ROSA Nguyen Chief Complaint: Z12.11 History of Present Illness Via Anderson Henao is a 58 year old female Review of Systems 2 General: Reports: 10 or more systems reviewed and unremarkable except in HPI and below Medications/Allergies Home Medications Medication Instructions Recorded Confirmed Last Taken Type baclofen 10 mg tablet 10 mg PO TID 02/19/23 10/14/23 10/13/23 History ergocalciferol (vitamin D2) 1,250 1,250 mcg PO .weekly 90 days #12 02/26/23 10/12/23 10/09/23 Rx mcg (50,000 unit) capsule (Vitamin caps D2) Bathroom hand rails #1 ea 03/06/23 08/14/23 Unknown Rx dimethyl fumarate 240 mg 240 mg PO BID 08/14/23 10/12/23 10/12/23 History capsule,delayed release (Tecfidera) pantoprazole 40 mg tablet,delayed 40 mg PO BID 6 weeks #84 tabs 08/14/23 10/14/23 10/13/23 Rx release duloxetine 20 mg capsule,delayed 20 mg PO BID #180 caps 09/24/23 10/14/23 10/13/23 Rx release gabapentin 100 mg capsule 100 mg PO TID 10/12/23 10/14/23 10/13/23 History Allergies Allergy/AdvReac Type Severity Reaction Status Date / Time No Known Allergies Allergy Verified 10/12/23 09:22 PFSH Acute PFSH: Medical History DJD (degenerative joint disease), lumbar Seizures Low back pain Osteoarthritis Multiple sclerosis Surgical History No pertinent past surgical history Family History Other Lung disease Social History Smoking and tobacco/nicotine status: never used tobacco/nicotine Alcohol intake: current Alcohol intake frequency: 3 or more drinks per day Alcohol type: wine Substance/Drug Use: never Adopted: No Caregiver/support person: No Lives independently: Yes Do you think of yourself as: Straight/Heterosexual Current gender identity: Female Vitals/I&O/Wt Last Vital Signs Temp 97.3 F L 10/14/23 06:12 Pulse 60 10/14/23 06:12 Resp 18 10/14/23 06:12 BP 116/66 10/14/23 06:12 Pulse Ox 97 10/14/23 06:12 O2 Del Method Room Air 10/14/23 06:12 Weight last 48 hrs Weight 110 lb A&P Assessment and plan (1) Epigastric pain: (2) Colon cancer screening: (3) GERD (gastroesophageal reflux disease): Plan EGD and colonoscopy Attestations Medical Necessity Statement*: Home Coding Level of Care Code Acute Code for Chg Fwd Diagnoses Epigastric pain R10.13 Colon cancer screening Z12.11 GERD (gastroesophageal reflux disease) K21.9
[2023-10-14 07:50] VITALS: BP 135/87; PULSE 61; RESP 18; TEMP 36.1; O2SAT 100
[2023-10-14 08:03] VITALS: BP 137/86; PULSE 60; RESP 18; O2SAT 97
[2023-10-14 08:10] VITALS: BP 133/78; PULSE 57; RESP 18; O2SAT 100
--- NOTE | 2023-10-14 08:56 | ANE.PACU2 ---
Inpatient post-anesthesia follow up: Airway intact: Yes Vital signs: Temperature 97.0 F Pulse Rate 57 Respiratory Rate 18 Blood Pressure 133/78 Pulse Oximetry 100 Oxygen Delivery Me thod Room Air Oxygen Flow Rate Fraction of Inspir ed Oxygen Hydration adequate: Yes Nausea and vomiting: No Pain level: 1 Mental status: Baseline
== END 2023-10-14 08:31 | disposition home or self-care (01) ==
PROVIDERS: PCP Registered Nurse; Visit Provider Surgery
PROC: 0DJ08ZZ Inspection of Upper Intestinal Tract, Via Natural or Artificial Opening Endoscopic (ICD-10-PCS; CPT 43235; principal; 2023-10-14 07:00)
PROC: 0DJD8ZZ Inspection of Lower Intestinal Tract, Via Natural or Artificial Opening Endoscopic (ICD-10-PCS; CPT 45378; 2023-10-14 07:00)
DX: Z12.11 Encounter for screening for malignant neoplasm of colon (principal); R10.13 Epigastric pain; K44.9 Diaphragmatic hernia without obstruction or gangrene; K21.00 Gastro-esophageal reflux disease with esophagitis, without bleeding; D12.5 Benign neoplasm of sigmoid colon; K21.9 Gastro-esophageal reflux disease without esophagitis; G35 Multiple sclerosis; F17.210 Nicotine dependence, cigarettes, uncomplicated; M06.9 Rheumatoid arthritis, unspecified
CPT/HCPCS: 43239; 45385; 88305; J2704; J7030

== ENCOUNTER → 2023-11-06 10:22 | Outpatient (BNVA) | payer MEDICAID, SELFPAY | PROVIDERS: PCP Registered Nurse; Visit Provider Surgery | DX: R10.13 Epigastric pain (principal); Z09 Encounter for follow-up examination after completed treatment for conditions other than malignant neoplasm; K80.50 Calculus of bile duct without cholangitis or cholecystitis without obstruction; K21.00 Gastro-esophageal reflux disease with esophagitis, without bleeding; D12.6 Benign neoplasm of colon, unspecified | CPT/HCPCS: 99214 ==

== ENCOUNTER 2023-11-24 07:52 | Day surgery (SDC) | payer MEDICAID, SELFPAY ==
[2023-11-24] VITALS (10 sets, daily range): BP systolic 115–181; BP diastolic 81–104; PULSE 63–81; RESP 18–20; TEMP 36.1–36.7; O2SAT 94–99; BMI 17.9
[2023-11-24] MEDS: sodium chloride 0.9% 1,000 ML 30 ML IV (08:39)
[2023-11-24] MEDS: ondansetron 2 mg/ML SDV 2 mL 4 MG IVP (08:40)
[2023-11-24] MEDS: midazolam 1 mg/mL INJ 2 mL 2 MG IVP (08:42)
--- NOTE | 2023-11-24 08:46 | ANES.PREANE2 ---
Pre-Anesthetic Assessment Height/Weight: Height 1.68 m Weight 50.349 kg Temp Pulse Resp BP Pulse Ox O2 Del Method 97.6 F 63 18 115/81 98 Room Air 11/24/23 08:15 11/24/23 08:15 11/24/23 08:15 11/24/23 08:15 11/24/23 08:15 11/24/23 08:17 Operation Date: 11/24/23 09:50 Proposed Procedures p Laparoscopic Cholecystectomy 03030,R10.13(Not Applicable) - Cassius Tapia DO Familial anesthetic complications: None Was Beta Michelle taken within 24 hours: N/A Was Clonidine taken within 24 hours: N/A Last intake: Intake Last Liquid Date 11/23/23 Last Liquid Time 20:00 Last Solid Date 11/23/23 Last Solid Time 18:00 Social Tobacco and No alcohol Exam alert, oriented x 3, clear to auscultation bilaterally and regular rate & rhythm Airway Mallampati: Class II Dentition: other (multiple missing) GI Gastroesophageal Reflux Disease [facility] Multiple Sclerosis - relapsing/remitting, patient educated on risk of flair with anesthesia and surgery Anesthetic Plan ASA status: 3 Anesthesia: General Risk of > 500 ml blood loss (7ml/kg in children): No Medications/Allergies Home Medications Medication Instructions Recorded Confirmed Last Taken Type baclofen 10 mg tablet 10 mg PO TID 02/19/23 11/23/23 11/24/23 History ergocalciferol (vitamin D2) 1,250 1,250 mcg PO .weekly 90 days #12 02/26/23 11/23/23 11/20/23 Rx mcg (50,000 unit) capsule (Vitamin caps D2) Bathroom hand rails #1 ea 03/06/23 11/06/23 Unknown Rx dimethyl fumarate 240 mg 240 mg PO BID 08/14/23 11/23/23 11/24/23 History capsule,delayed release (Tecfidera) duloxetine 20 mg capsule,delayed 20 mg PO BID #180 caps 09/24/23 11/23/23 11/24/23 Rx release gabapentin 100 mg capsule 100 mg PO TID 10/12/23 11/23/23 11/24/23 History pantoprazole 40 mg tablet,delayed 40 mg PO BID 11/23/23 11/23/23 11/24/23 History release Allergies Allergy/AdvReac Type Severity Reaction Status Date / Time No Known Allergies Allergy Verified 11/06/23 10:27 [facility] Anesthesia Medical History DJD (degenerative joint disease), lumbar Seizures Low back pain Osteoarthritis Multiple sclerosis Surgical History No pertinent past surgical history Family History Other Lung disease Social History Smoking and tobacco/nicotine status: never used tobacco/nicotine Alcohol intake: current Alcohol intake frequency: 3 or more drinks per day Alcohol type: wine Substance/Drug Use: never Adopted: No Caregiver/support person: No Lives independently: Yes Do you think of yourself as: Straight/Heterosexual Current gender identity: Female Data Anesthesia Cardiac Studies: No Data to Display
--- NOTE | 2023-11-24 08:56 | W.PM.OPSUD ---
Surgery/Procedure H&P Update DATE OF PROCEDURE: November 24, 2023 DATE H&P PERFORMED: 11/06/23 H&P UPDATE INFORMATION: I have reviewed H&P completed within last 30 days, I have examined patient prior to procedure and No changes to prior documentation PLANNED PROCEDURE: Operation Date: 11/24/23 09:50 Proposed Procedures p Laparoscopic Cholecystectomy 58886,R10.13(Not Applicable) - Cassius Tapia, DO
[2023-11-24] MEDS: ceFAZolin 2,000 mg SDV 2000 MG IVP (10:26)
[2023-11-24] MEDS: lidocaine-epi 2% PF 1:200,000 20 mL SDV XX (10:52)
--- NOTE | 2023-11-24 11:04 | P.OP_ITS ---
Operative Report Date of procedure: November 24, 2023 Surgeon: Cassius Tapia DO Brief History: This very pleasant 58-year-old female who presented my office with abdominal pain. She was diagnosed with biliary colic the risks and benefits of the procedure were explained and documented. Procedure: Preoperative diagnosis: Biliary colic Postoperative diagnosis: Same Procedure performed: Laparoscopic cholecystectomy Surgeon: Dr. Cassius Tapia DO Estimated blood loss: 5 mL Specimens: Gallbladder to pathology Complications: None apparent Description of procedure: Patient was wheeled into the operative room and placed on the OR table in a supine position. Abdomen was inspected prepped and draped in usual sterile fashion. Time-out was performed and all present were in agreement. A 15 blade scalp was used to make a stab incision in the left upper quadrant and intra- abdominal insufflation was achieved using a Veress needle. After localizing the tissue incisions were made and a 5 millimeter trocar was placed into the umbilicus as well as 2 in the right upper quadrant. A 12 millimeter trocar was placed in the epigastrium. Gallbladder was grasped and elevated. The triangle of Calot was carefully dissected using blunt dissection and electrocautery until the triangle of Calot clearly identified. The cystic duct was clipped proximally and double clipped distally. The duct was then ligated proximally. The cystic artery was doubly clipped and ligated. The gallbladder was then removed from the liver bed using electrocautery. The gallbladder was removed fr om the abdomen using an Endo-Catch bag through the epigastric incision. The liver bed was inspected and no bleeding was seen. The abdomen was irrigated and suctioned. All ports removed. Skin was washed and dried. Incisions were closed with 4-0 Monocryl in a subcuticular interrupted fashion. Skin glue was applied. Patient tolerated the procedure well.
--- NOTE | 2023-11-24 12:41 | SUR.PHASEII ---
Patient complains of pain in between shoulder blades and is crying. Patient states she thinks it is from her MS. Ordered pain medication per orders.
[2023-11-24] MEDS: HYDROcodone-acetaminophen 7.5-325 mg Tablet 1 TAB PO (12:44)
--- NOTE | 2023-11-24 13:25 | ANE.PACU2 ---
Inpatient post-anesthesia follow up: Airway intact: Yes Vital signs: Temperature 97 F Pulse Rate 63 Respiratory Rate 18 Blood Pressure 181/93 Pulse Oximetry 94 Oxygen Delivery Me thod Room Air Oxygen Flow Rate Fraction of Inspir ed Oxygen Hydration adequate: Yes Nausea and vomiting: No Pain level: 1 Mental status: Baseline
== END 2023-11-24 13:27 | disposition home or self-care (01) ==
PROVIDERS: PCP Registered Nurse; Visit Provider Surgery
PROC: 0FT44ZZ Resection of Gallbladder, Percutaneous Endoscopic Approach (ICD-10-PCS; CPT 47562; principal; 2023-11-24 09:40)
DX: K81.1 Chronic cholecystitis (principal); K21.9 Gastro-esophageal reflux disease without esophagitis; G35 Multiple sclerosis; M19.90 Unspecified osteoarthritis, unspecified site
CPT/HCPCS: 47562; 88304; J0690; J1100; J2250; J2405; J2704; J3010; J3490; J7030

== ENCOUNTER → 2024-01-15 09:19 | Outpatient (BNVA) | payer MEDICAID, SELFPAY | PROVIDERS: PCP Registered Nurse; Visit Provider Surgery | DX: L98.9 Disorder of the skin and subcutaneous tissue, unspecified (principal); Z90.49 Acquired absence of other specified parts of digestive tract | CPT/HCPCS: 99214 ==

== ENCOUNTER → 2024-02-02 13:57 | Outpatient (BNVA) | payer MEDICAID, SELFPAY | PROVIDERS: PCP Registered Nurse; Visit Provider Registered Nurse | DX: I10 Essential (primary) hypertension (principal); M47.896 Other spondylosis, lumbar region | CPT/HCPCS: 80053; 82652; 85025 ==

== ENCOUNTER → 2024-02-05 11:05 | Outpatient (BNVA) | payer MEDICAID, SELFPAY | PROVIDERS: PCP Registered Nurse; Visit Provider Surgery | DX: L98.9 Disorder of the skin and subcutaneous tissue, unspecified (principal) | CPT/HCPCS: 99214 ==

== ENCOUNTER → 2024-02-15 13:03 | Outpatient (BNVA) | payer MEDICAID, SELFPAY | PROVIDERS: PCP Registered Nurse; Visit Provider Podiatrist Foot & Ankle Surgery | DX: M19.072 Primary osteoarthritis, left ankle and foot; M19.071 Primary osteoarthritis, right ankle and foot; M20.41 Other hammer toe(s) (acquired), right foot; M20.42 Other hammer toe(s) (acquired), left foot; M21.621 Bunionette of right foot; M21.622 Bunionette of left foot; Q82.8 Other specified congenital malformations of skin | CPT/HCPCS: 73630; 99203 ==

== ENCOUNTER → 2024-05-16 13:03 | Outpatient (BNVA) | payer MEDICAID, SELFPAY | PROVIDERS: PCP Registered Nurse; Visit Provider Podiatrist Foot & Ankle Surgery | DX: M21.621 Bunionette of right foot (principal); M21.622 Bunionette of left foot; M79.672 Pain in left foot; M19.072 Primary osteoarthritis, left ankle and foot; M20.41 Other hammer toe(s) (acquired), right foot; M20.42 Other hammer toe(s) (acquired), left foot; Q82.8 Other specified congenital malformations of skin; M77.52 Other enthesopathy of left foot and ankle | CPT/HCPCS: 17110; 20600; J1100; J3301; J3490 ==

== ENCOUNTER → 2024-07-19 10:55 | Outpatient (BNVA) | payer MEDICAID, SELFPAY | PROVIDERS: PCP Registered Nurse; Visit Provider Podiatrist Foot & Ankle Surgery | DX: M77.52 Other enthesopathy of left foot and ankle (principal); M19.071 Primary osteoarthritis, right ankle and foot; M19.072 Primary osteoarthritis, left ankle and foot; M20.41 Other hammer toe(s) (acquired), right foot; M20.42 Other hammer toe(s) (acquired), left foot; M21.621 Bunionette of right foot; M21.622 Bunionette of left foot; L84 Corns and callosities | CPT/HCPCS: 20550; 20600; 99213; J1100 ==

== ENCOUNTER 2024-07-21 14:50 | Inpatient (IN) | payer MEDICAID, SELFPAY ==
[2024-07-21] VITALS (7 sets, daily range): BP systolic 119–143; BP diastolic 67–72; PULSE 64–71; RESP 16; TEMP 37.1; O2SAT 95–100; BMI 16.1
--- NOTE | 2024-07-21 15:25 | XRR_ITS ---
PROCEDURE INFORMATION: Exam: XR Left Hip Exam date and time: 07/21/2024 5:11 PM Age: 59 years old Clinical indication: Injury or trauma; Fall; Blunt trauma (contusions or hematomas); Left; Hip TECHNIQUE: Imaging protocol: Radiologic exam of the left hip. Views: 2 or 3 views hip with pelvis when performed. COMPARISON: MR lumbar spine wo/w con [id number] 05/05/2018 8:51 AM FINDINGS: Bones/joints: Acute comminuted and impacted fracture through left femoral neck traversing per greater trochanter. Diffuse osteopenia. Soft tissues: Soft tissues within normal limits. No radiopaque foreign bodies. XR/XR hip LT 2-3V wo/w pel* [id number] IMPRESSION: Acute comminuted and impacted fracture through left femoral neck.
--- NOTE | 2024-07-21 15:26 | W.ED.EXTPRO ---
HPI - Extremity Problem General: Chief complaint: Extremity Injury, Lower Stated complaint: Lt hip pain, Fall Time Seen by Provider: 07/21/24 15:10 Source: patient Mode of arrival: EMS Limitations: no limitations History of Present Illness: 59yo female presents via EMS for evaluation of left hip pain following a fall that occurred when she was attempting to get up and her shoe caught on the ground. Patient reports that she fell to her left side. States she was attempting to catch a bus to go to her doctor's appointment. Patient does have increased pain in the left groin area and to the back of the left hip. Patient did receive 100 mcg fentanyl from EMS. Patient does report a history of multiple sclerosis as well as arthritis in her foot. She does see Dr. Larry for podiatry and had a injection in her left foot yesterday. Patient denies any other concerns at this time. Associated symptoms: Deny chest pain or fever(s) Related Data Home Medications ?Medication ?Instructions ?Recorded ?Confirmed baclofen 10 mg tablet 10 mg PO TID 02/19/23 07/19/24 dimethyl fumarate 240 mg 240 mg PO BID 08/14/23 07/19/24 capsule,delayed release (Tecfidera) gabapentin 100 mg capsule 50 mg PO BID 02/02/24 07/19/24 amoxicillin 500 mg tablet 1,500 mg PO DAILY 07/12/24 07/19/24 chlorhexidine gluconate 0.12 % PO 07/12/24 07/19/24 mouthwash dexamethasone 4 mg tablet 4 mg PO DAILY 07/12/24 07/19/24 ibuprofen 800 mg tablet 800 mg PO Q8H 07/12/24 07/19/24 Previous Rx's ?Medication ?Instructions ?Recorded Bathroom hand rails #1 ea 03/06/23 duloxetine 30 mg capsule,delayed 30 mg PO BID 90 days #180 caps 02/16/24 release celecoxib 100 mg capsule (Celebrex) 100 mg PO BID 30 days #60 caps 06/15/24 lorazepam 0.5 mg tablet (Ativan) 0.5 mg PO DAILY PRN anxiety 30 06/15/24 days #30 tabs triamcinolone acetonide 0.1 % 1 applic topical BID 10 days #30 07/12/24 topical cream grams ergocalciferol (vitamin D2) 1,250 See Rx Instructions .Route 07/20/24 mcg (50,000 unit) capsule .COMPLEX #4 caps Allergies Allergy/AdvReac Type Severity Reaction Status Date / Time No Known Allergies Allergy Verified 07/19/24 11:14 Review of Systems Const: Denies: fever(s) or chills Card: Denies: chest pain Resp: Denies: dyspnea Musc: Reports: extremity pain (Left hip) and limited range of motion PFSH ED PFSH: Medical History DJD (degenerative joint disease), lumbar Seizures Low back pain Osteoarthritis Multiple sclerosis Surgical History History of laparoscopic cholecystectomy No pertinent past surgical history Family History Other Lung disease Social History Smoking and tobacco/nicotine status: never used tobacco/nicotine Alcohol intake: current Alcohol intake frequency: 3 or more drinks per day Alcohol type: wine Substance/Drug Use: never Adopted: No Caregiver/support person: No Lives independently: Yes Do you think of yourself as: Straight/Heterosexual Current gender identity: Female Physical Exam Const: COMMON NORMALS: no acute distress, patient oriented x3 and alert GENERAL APPEARANCE: cooperative ORIENTATION/CONSCIOUSNESS: Yes awake OTHER: Patient was evaluated on the aldana bed while awaiting room placement. She was able to provide history with no difficulty. She is interactive with exam appropriately. No family is at bedside at time of exam HENMT: COMMON NORMALS: normocephalic and atraumatic HEAD & SCALP: normocephalic and atraumatic Neck/C-Spine: COMMON NORMALS: full ROM Chest: CHEST: Yes Symmetrical chest wall rise Resp: COMMON NORMALS: normal respiratory effort EFFORT & INSPECTION: Yes able to speak in complete sentences Extremity: LEFT LOWER EXTREMITY: Yes hip joint (left posterior and groin area TTP) Left hip: Yes palpation and Yes ROM (decreased ROM) OTHER: Left posterior tibialis and dorsal pedalis pulses 3+, sensation intact left distal ext Neuro: COMMON NORMALS: patient oriented x3 SENSORIUM/ORIENTATION: Yes alert Course ED course: 1744: Discussed case with Dr. Mendez, orthopedics. He advised he would not be able to do surgery tonight. Recommends admitting to medicine and having them prep her for surgery. 1814: Discussed with Dr Carson, would like a reconsult when labs are back 2100: Labs are complete. Consulted hospitalist. Spoke directly with , Hospitalist. She is agreeable with admission. Discussed that patient is scheduled for surgery at 1300 tomorrow. Reevaluation(s): Reevaluation #1: Patient was moved from aldana bed to exam room 13. She is complaining of pain. Pain and nausea medications ordered. Time: 16:50 Vital Signs: Vital signs: Vital Signs Temperature 98.7 F 07/21/24 15:01 Pulse Rate 64 07/21/24 20:42 Respiratory Rate 16 07/21/24 15:01 Blood Pressure 119/72 07/21/24 17:35 Pulse Oximetry 100 07/21/24 20:42 Oxygen Delivery Me thod Room Air 07/21/24 20:42 MDM - Extremity (Nontraumatic) Medical Decision Making 59yo female presents via EMS for evaluation of left hip pain following a fall that occurred when she was attempting to get up and her shoe caught on the ground. Patient reports that she fell to her left side. States she was attempting to catch a bus to go to her doctor's appointment. Patient does have increased pain in the left groin area and to the back of the left hip. Patient did receive 100 mcg fentanyl from EMS. Patient does report a history of multiple sclerosis as well as arthritis in her foot. She does see Dr. Larry for podiatry and had a injection in her left foot yesterday. Patient denies any other concerns at this time. Patient is nontoxic in appearance. Vital signs are stable. X-ray does reveal a comminuted and impacted fracture through the femoral neck. Discussed findings with patient. Advised this is a surgical repair. No leukocytosis, white blood cell count is 11.33. Hemoglobin is in the normal range of 12.5. No significant electrolyte or renal abnormalities noted. AST is elevated at 120 with a elevated ALT at 95. Lipase is elevated at 164. Chest x-ray is grossly unremarkable. Discussed findings with patient. Upon discussion of lab result, patient advised that she had taken her night medications on her own. Discussed with patient that she would be admitted to the hospital and have surgery at 1300 tomorrow. Patient is agreeable with plan for admission. Medical Records I reviewed the patient's medical records. Lab Data I reviewed the patient's lab results. 07/21/24 19:50 07/21/24 19:50 Radiology Impressions Hip/Pelvis X-Ray 07/21/24 15:25 IMPRESSION: Acute comminuted and impacted fracture through left femoral neck. Chest X-Ray 07/21/24 17:55 IMPRESSION: No acute cardiopulmonary findings. Laboratory Results WBC 11.33 10^3/uL (3.29-11.43) 07/21/24 19:50 RBC 3.80 10^6/uL (3.85-5.65) L 07/21/24 19:50 Hgb 12.50 g/dL (11.27-16.99) 07/21/24 19:50 Hct 36.0 % (36-47) 07/21/24 19:50 MCV 94.7 fl (85-98) 07/21/24 19:50 MCH 32.9 pg (27-33) 07/21/24 19:50 MCHC 34.7 g/dL (30-55) 07/21/24 19:50 RDW 13.1 % (12.1-15.1) 07/21/24 19:50 Plt Count 316 10^3/cmm (157-399) 07/21/24 19:50 MPV 9.1 fL (7.4-10.4) 07/21/24 19:50 Neut % (Auto) 61.9 % 07/21/24 19:50 Lymph % (Auto) 20.3 % 07/21/24 19:50 Mcleod % (Auto) 15.5 % 07/21/24 19:50 Eos % (Auto) 1.4 % 07/21/24 19:50 Baso % (Auto) 0.5 % 07/21/24 19:50 Neut # (Auto) 7.00 10^3/uL (1.8-7.7) 07/21/24 19:50 Lymph # (Auto) 2.3 10^3/uL (0.8-4.8) 07/21/24 19:50 Mcleod # (Auto) 1.8 10^3/uL (0.2-0.9) H 07/21/24 19:50 Eos # (Auto) 0.2 10^3/uL (0.0-0.8) 07/21/24 19:50 Baso # (Auto) 0.1 10^3/uL (0.0-0.1) 07/21/24 19:50 Nucleated RBC % (auto) 0 % 07/21/24 19:50 Nucleated RBCs # 0.0 /100WBC 07/21/24 19:50 Sodium 133 mmol/L (136-145) L 07/21/24 19:50 Potassium 3.6 mmol/L (3.5-5.1) 07/21/24 19:50 Chloride 96 mmol/L (98-107) L 07/21/24 19:50 Carbon Dioxide 27 mmol/L (22-29) 07/21/24 19:50 Anion Gap 13.6 (5-19) 07/21/24 19:50 BUN 15 mg/dL (8-23) 07/21/24 19:50 Creatinine 0.4 mg/dL (0.5-0.9) L 07/21/24 19:50 GFR Calculation 162.8 mL/min (90-130) H 07/21/24 19:50 Glucose 85 mg/dL (65-115) 07/21/24 19:50 Calculated Osmolality 276 mOsm/kg (285-295) L 07/21/24 19:50 Calcium 8.8 mg/dL (8.5-10.5) 07/21/24 19:50 Total Bilirubin 0.4 mg/dL (0.15-1.2) 07/21/24 19:50 AST 120 U/L (0-32) H 07/21/24 19:50 ALT 95 U/L (0-33) H 07/21/24 19:50 Alkaline Phosphatase 95 U/L (35-105) 07/21/24 19:50 Total Protein 6.9 g/dL (6.6-8.7) 07/21/24 19:50 Albumin 4.1 g/dL (3.5-5.2) 07/21/24 19:50 Globulin 2.8 g/dL (1.3-4.6) 07/21/24 19:50 Lipase 164 U/L (13-60) H 07/21/24 19:50 All radiology interpretation(s) finalized by discharge Discharge Plan Discharge Patient Disposition: Admitted As Inpatient Clinical Impression: Femoral neck fracture, Multiple sclerosis Condition: Stable Coding Level of Care Code ED [place] Operator for Ty Morgan
[2024-07-21] MEDS: morphine 4 mg/mL SDV 1 mL IVP ×2 (17:08→22:22)
[2024-07-21] MEDS: ondansetron 2 mg/ML SDV 2 mL 4 MG IVP (17:08)
--- NOTE | 2024-07-21 17:55 | XRR_ITS ---
PROCEDURE INFORMATION: Exam: XR Chest Exam date and time: 07/21/2024 6:14 PM Age: 59 years old Clinical indication: Screening exam; Other screening; Additional info: Pre-op clearance TECHNIQUE: Imaging protocol: Radiologic exam of the chest. Views: 1 view. COMPARISON: CR XR chest 1V portable [id number] 04/09/2022 2:48 PM FINDINGS: Lungs: Lungs are hyperinflated. No focal consolidation. Pleural spaces: Unremarkable. No pleural effusion. No pneumothorax. Heart/Mediastinum: Unremarkable. No cardiomegaly. Bones/joints: Unremarkable. XR/XR chest 1V portable [id number] IMPRESSION: No acute cardiopulmonary findings.
[2024-07-21] MEDS: lidocaine 2% viscous 15 ML, aluminum-mag hydrox-simethicon 30 ML, sucralfate oral liq 1 GM PO (18:23)
--- NOTE | 2024-07-21 18:35 | PM.MISC ---
Miscellaneous Note Purpose of Documentation: Preoperative x-ray evaluation Note: Plans will be made for open reduction internal fixation tomorrow, and the patient will be seen when she is admitted to the hospital. This will likely be tomorrow prior to her surgery. Currently, she is scheduled for 1 PM tomorrow. X-ray imaging demonstrates an intertrochanteric hip fracture which is angulated and slightly displaced.
--- NOTE | 2024-07-21 18:58 | ECG_ITS ---
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 Measurements Intervals Brady Rate: 65 P: 84 MA: 189 QRS: -46 QRSD: 122 T: 85 QT: 405 QTc: 422 Interpretive Statements SINUS RHYTHM LEFT ANTERIOR FASCICULAR BLOCK [QRS AXIS <= -45, QR IN I, RS IN II] Compared to ECG 04/09/2022 16:14:53 Myocardial infarct finding no longer present Electronically Signed On 07-22-2024 16:28:43 CDT by Lois Rose M.D. [email or web address]
[2024-07-21 20:25] LABS: Basophils # 0.1 10^3/uL (0.0-0.1); Basophils % 0.5 %; Eosinophils # 0.2 10^3/uL (0.0-0.8); Eosinophils % 1.4 %; Lymphocytes # 2.3 10^3/uL (0.8-4.8); Lymphocytes % 20.3 %; Mean Corpuscular HGB Conc 34.7 g/dL (30-55); Mean Corpuscular Hemoglobin 32.9 pg (27-33); Mean Corpuscular Volume 94.7 fl (85-98); Mean Platelet Volume 9.1 fL (7.4-10.4); Monocytes # 1.8 10^3/uL (0.2-0.9); Monocytes % 15.5 %; Neutrophils % 61.9 %; Nucleated Red Blood Cells % 0 %; Platelet Count 316 10^3/cmm (157-399); Red Cell Distribution Width 13.1 % (12.1-15.1); White Blood Count 11.33 10^3/uL (3.29-11.43)
[2024-07-21 20:50] LABS: Alanine Aminotransferase 95 U/L (0-33); Albumin Level 4.1 g/dL (3.5-5.2); Alkaline Phosphatase 95 U/L (35-105); Anion Gap 13.6 (5-19); Aspartate Amino Transferase 120 U/L (0-32); Blood Urea Nitrogen 15 mg/dL (8-23); Calcium 8.8 mg/dL (8.5-10.5); Carbon Dioxide 27 mmol/L (22-29); Chloride 96 mmol/L (98-107); Creatinine Clr Calc Pharmacy 107.0976; Globulin 2.8 g/dL (1.3-4.6); Glomerular Filtration Rate 162.8 mL/min (90-130); Glucose 85 mg/dL (65-115); Lipase 164 U/L (13-60); Osmolality Calculated 276 mOsm/kg (285-295); Potassium 3.6 mmol/L (3.5-5.1); Sodium 133 mmol/L (136-145); Total Bilirubin 0.4 mg/dL (0.15-1.2); Total Protein 6.9 g/dL (6.6-8.7)
[2024-07-22] VITALS (25 sets, daily range): BP systolic 81–121; BP diastolic 44–82; PULSE 65–89; RESP 13–24; TEMP 36.2–37.2; O2SAT 93–100; BMI 17.4
[2024-07-22] MEDS: morphine 4 mg/mL SDV 1 mL IVP (00:19)
[2024-07-22] MEDS: sodium chloride 0.9% 1,000 ML 100 ML IV (01:09)
--- NOTE | 2024-07-22 01:49 | PC.NURSE ---
patient transferred from ER, admission done by Rocio CHAN, med list confirmed with nimo DAVIS, patient refuses to have meds locked up in Pyxis, this nurse educated patient on medication safety, patient acknowledges understanding. meds left in window sill in patients purse.
[2024-07-22] MEDS: nicotine 14 mg Patch 1 PATCH TRANSDERMA ×2 (02:48→14:50)
--- NOTE | 2024-07-22 04:12 | PM.HP ---
Providers/Chief Complaint Admitting Physician: Shaniqua Stevens MD Primary Care Provider: ROSA Nguyen Chief Complaint: Lt hip pain, Fall, left hip pain History of Present Illness Via Anderson Henao is a 59 year old female with medical history significant for multiple sclerosis given hide the sequela of ambulatory dysfunction. Patient because of ambulatory dysfunction from her MS sustained a mechanical fall falling down on the left hip fracturing her femoral neck on the left. It was for this reason patient came to the emergency room for further care. Emergency room department attending consulted orthopedics who plan to repair her left hip at 1 PM today. Preop workup we have done in the emergency room EKG was done was unremarkable chest x-ray was done patient is not in heart failure. Patient is able to undergo left femoral neck fracture repair. Patient has been seen and evaluated by me. Pain management optimized with morphine. Patient is n.p.o. after midnight except for her medications. Patient had taking medications prior to even the attending physician in the ED or myself seeing her in the emergency room. We gave some pain management with morphine as of now. I have reconciled her medication she never wanted to skip her multiple sclerosis medication. All has been reconciled at this time. Patient is looking forward to have the left hip repair. Patient is not on any anticoagulation. Her medication have been reviewed and noted. Review of Systems General: Reports: 10 or more systems reviewed and unremarkable except in HPI and below Medications/Allergies Home Medications ?Medication ?Instructions ?Recorded ?Confirmed ?Last Taken ?Type baclofen 10 mg tablet 10 mg PO TID 02/19/23 07/21/24 11/24/23 History Bathroom hand rails #1 ea 03/06/23 07/19/24 Unknown Rx dimethyl fumarate 240 mg 240 mg PO BID 08/14/23 07/21/24 11/24/23 History capsule,delayed release (Tecfidera) gabapentin 100 mg capsule 100 mg PO 3XD 02/02/24 07/21/24 Unknown History duloxetine 30 mg capsule,delayed 30 mg PO BID 90 days #180 caps 02/16/24 07/22/24 07/21/24 Rx release celecoxib 100 mg capsule (Celebrex) 100 mg PO BID 30 days #60 caps 06/15/24 07/21/24 Unknown Rx lorazepam 0.5 mg tablet (Ativan) 0.5 mg PO DAILY PRN anxiety 30 06/15/24 07/19/24 Unknown Rx days #30 tabs amoxicillin 500 mg tablet 1,500 mg PO DAILY 07/12/24 07/22/24 07/21/24 History 1500 mg chlorhexidine gluconate 0.12 % PO 07/12/24 07/19/24 07/20/24 History mouthwash dexamethasone 4 mg tablet 4 mg PO DAILY 07/12/24 07/19/24 07/21/24 History ibuprofen 800 mg tablet 800 mg PO Q8H 07/12/24 07/22/24 07/21/24 History triamcinolone acetonide 0.1 % 1 applic topical BID 10 days #30 07/12/24 07/22/24 07/21/24 Rx topical cream grams ergocalciferol (vitamin D2) 1,250 See Rx Instructions .Route 07/20/24 Unknown Rx mcg (50,000 unit) capsule .COMPLEX #4 caps lorazepam 0.5 mg tablet 0.5 mg PO DAILY PRN anxiety 07/21/24 07/21/24 Unknown History Allergies Allergy/AdvReac Type Severity Reaction Status Date / Time No Known Allergies Allergy Verified 07/19/24 11:14 PFSH Acute PFSH: Medical History DJD (degenerative joint disease), lumbar Seizures Low back pain Osteoarthritis Multiple sclerosis Surgical History History of laparoscopic cholecystectomy No pertinent past surgical history Family History Other Lung disease Social History Smoking and tobacco/nicotine status: never used tobacco/nicotine Alcohol intake: current Alcohol intake frequency: 3 or more drinks per day Alcohol type: wine Substance/Drug Use: never Adopted: No Caregiver/support person: No Lives independently: Yes Do you think of yourself as: Straight/Heterosexual Current gender identity: Female Vitals/I&O/Wt Last Vital Signs Temp 99.0 F 07/22/24 04:00 Pulse 65 07/22/24 04:00 Resp 16 07/22/24 04:00 BP 105/69 07/22/24 04:00 Pulse Ox 96 07/22/24 04:00 O2 Del Method Room Air 07/22/24 04:00 07/21/24 07/21/24 07/22/24 14:59 22:59 06:59 Output Total 1600 / 1600 Balance -1600 / -1600 Weight last 48 hrs Weight 48.625 kg Weight 49.895 kg Weight 45.359 kg Physical Exam Narrative: Generally patient is found to be in severe pain because of the femoral neck fracture. Patient actually was in tears after walking to the room. 4 mg of IV morphine was immediately given to the patient and will continue to monitor pain management. HEENT?normocephalic/atraumatic Neck?neck is supple Chest?lungs are clear with good air entry Abdomen?soft nontender nondistended unremarkable Extremity significant for left lower extremity pain and tenderness Patient unable to move left lower extremity because of left femoral neck injury. Site is intact vascularly cap refill less than 3 seconds on the affected limb of the lower extremities. Must continue to follow through site is warm to touch. Neurology has no focality patient is pretty much alert awake oriented. Urinary Catheter Management: Park: Cath Placed During This Visit: yes Urinary Catheter Date of Insertion: 07/21/24 Urinary Catheter Time of Insertion: 19:50 Data 07/21/24 19:50 07/21/24 19:50 A&P Assessment and plan (1) Femoral neck fracture: Inpatient admission to general medical floor Preop workup completed, patient is able to go for surgery at 1 PM as scheduled by the orthopedics Patient is not on any anticoagulant Follow through with gentle hydration of normal saline at 75 mL/h Pain management with morphine at this time we will continue to follow through and optimize. (2) Multiple sclerosis: (3) Alcohol abuse, in remission: Patient claims to still be in remission (4) Anxiety: Continue home antianxiety medication (5) Fili's katlyntte, left: Noted to be in medical history. 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 (8) Osteoarthritis: Continue management with arthritis medication PDMP PDMP Reviewed: Not Reviewed Attestations Medical Necessity Statement*: Patient is with an acute left femoral neck fracture and deserves and meet the criteria for inpatient for patient is going to be going in for surgery on this day at 1 PM for a repair and with further optimization of care prior to discharge patient meets inpatient admission for 2 midnights at the minimal Coding Level of Care Code 97248 Diagnoses Femoral neck fracture S72.002A Encounter type: initial encounter Fracture type: closed Laterality: left Multiple sclerosis G35 Alcohol abuse, in remission F10.11 Anxiety F41.9 Tailor's bunionette, left M21.622 Bursitis of left foot M77.52 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
[2024-07-22 05:28] LABS: Basophils # 0.1 10^3/uL (0.0-0.1); Basophils % 0.5 %; Eosinophils # 0.1 10^3/uL (0.0-0.8); Eosinophils % 1.2 %; Hematocrit 33.9 % (36-47); Lymphocytes # 1.3 10^3/uL (0.8-4.8); Lymphocytes % 14.3 %; Mean Corpuscular HGB Conc 33.9 g/dL (30-55); Mean Corpuscular Hemoglobin 31.5 pg (27-33); Mean Corpuscular Volume 92.9 fl (85-98); Mean Platelet Volume 9.1 fL (7.4-10.4); Monocytes # 1.9 10^3/uL (0.2-0.9); Monocytes % 20.2 %; Neutrophils # 5.92 10^3/uL (1.8-7.7); Neutrophils % 63.4 %; Nucleated Red Blood Cells % 0 %; Platelet Count 299 10^3/cmm (157-399); Red Blood Count 3.65 10^6/uL (3.85-5.65); Red Cell Distribution Width 13.1 % (12.1-15.1); White Blood Count 9.35 10^3/uL (3.29-11.43)
[2024-07-22 05:58] LABS: Alanine Aminotransferase 161 U/L (0-33); Albumin Level 3.9 g/dL (3.5-5.2); Alkaline Phosphatase 118 U/L (35-105); Aspartate Amino Transferase 177 U/L (0-32); Blood Urea Nitrogen 11 mg/dL (8-23); Calcium 8.6 mg/dL (8.5-10.5); Carbon Dioxide 25 mmol/L (22-29); Chloride 102 mmol/L (98-107); Chol HDL Ratio 2.56 mg/dL (0.0-4.40); Cholesterol 146 mg/dL (0-200); Globulin 2.5 g/dL (1.3-4.6); Glomerular Filtration Rate 162.8 mL/min (90-130); Glucose 99 mg/dL (65-115); HDL Cholesterol 57 mg/dL (60-100); LDL Cholesterol Calculated 78 mg/dL (50-129); LDL HDL Ratio 1.37 RATIO (0.00-3.22); Osmolality Calculated 281 mOsm/kg (285-295); Phosphorus 3.4 mg/dL (2.5-4.5); Sodium 136 mmol/L (136-145); Total Bilirubin 0.5 mg/dL (0.15-1.2); Total Protein 6.4 g/dL (6.6-8.7); Triglycerides 56 mg/dL (0-150)
[2024-07-22] MEDS: sodium chloride 0.9% 1,000 ML 75 ML IV ×2 (06:00→17:14)
[2024-07-22] MEDS: pantoprazole 40 mg SDV IVP (06:05)
[2024-07-22] MEDS: baclofen 10 mg Tablet PO ×3 (08:27→21:33)
[2024-07-22] MEDS: duloxetine 30 mg Capsule PO ×2 (08:27→17:14)
[2024-07-22] MEDS: gabapentin 100 mg Capsule PO ×3 (08:27→21:33)
[2024-07-22] MEDS: CELEcoxib 100 mg Capsule PO (08:27)
--- NOTE | 2024-07-22 08:47 | PC.NURSE ---
Home Medications: Per previous note from table games shift manager nurse, pt had refused to let nurse lock medications in Pyxis and medications were left on window sill. When this nurse went in for medication pass, pt had medications in bed with her which included, Baclofen, Dimethyl Fumarate, 2 bottles of Duloxetine, Gabapentin, Celecoxib, and Lorazepam. Medications counted and new home medication list made with updated medication counts and added medication Dimethyl Fumarate : Baclofen 13 Dimethyl Fumarate 41 2 bottles of Duloxetine 61 Gabapentin 44 Celecoxib 21 Lorazepam 28 (2nd verification count with DUSTIN Kirk and tamper tape added) Pt was insistent on taking her medications, especially her medication for MS. When this nurse educated pt on the importance of home medications being locked up for various safety reasons, pt was agreeable to letting this nurse lock medications in the Pyxis. Medications counted and same amount remains from medications that had a count. Tamper tape Duloxetine and Celecoxib did not have a count from original medication list from table games shift manager therefore this nurse is unable to confirm whether or not pt took any from home bottle, according to pt, she did not.
[2024-07-22 09:21] LABS: Bilirubin Urine Negative (Negative); Blood Urine 1+ (Negative); Glucose Urine UA Negative (Normal); Ketones Urine 3+ (Negative); Leukocyte Esterase Urine 1+ (Negative); Nitrate Urine Negative (Negative); Protein Urine Negative (Negative); Specific Gravity, Urine 1.014 (1.005-1.030); Urine Appearance Clear (CLEAR); Urine Color Yellow (Yellow); Urobilinogen Urine 0.2 mg/dL (Negative); pH Urine 6.5 (5-7)
[2024-07-22 09:23] LABS: Add Urine Microscopic? YES; Bacteria Urine None Seen /hpf; Hyaline Casts Urine 0-4 /lpf; Squamous Epithelial Cell Urine 0-5 /hpf (0-5); WBC Urine 21-50 /hpf (0-5)
[2024-07-22 09:40] LABS: Estmated Average Glucose 103; Hemoglobin A1C 5.2 % (4.0-6.0)
[2024-07-22] MEDS: DIMETHYL FUMARATE 240 MG PO ×2 (09:47→17:15)
[2024-07-22 09:58] LABS: Iron 46 ug/dL (37-145); Percent Saturation 17.4 % (20-50); Thyroid Stimulating Hormone 3.73 uIU/mL (0.27-4.20); Total Iron Binding Capacity 263 mcg/dl; Unsaturated Iron Binding 217 ug/dL (112-347); Vitamin B12 1062 pg/mL (232-1245)
[2024-07-22 09:59] LABS: Alcohol Level < 10 mg/dL (0-10)
[2024-07-22 10:07] LABS: Add Urine Culture? Yes
[2024-07-22] MEDS: sodium chloride 0.9% 1,000 ML 30 ML IV (10:34)
[2024-07-22] MEDS: acetaminophen 1,000 MG/100 ML PIGGYBACK 400 MG IV (10:34)
--- NOTE | 2024-07-22 10:34 | ANES.PREANE2 ---
Pre-Anesthetic Assessment Height/Weight: Height 1.69 m Weight 48.625 kg Temp Pulse Resp BP Pulse Ox O2 Del Method 97.4 F L 67 16 102/64 95 Room Air 07/22/24 10:29 07/22/24 10:29 07/22/24 10:29 07/22/24 10:29 07/22/24 10:07/22/24 10:29 Preop Diagnosis: Left intertrochanteric hip fracture Operation Date: 07/22/24 13:00 Proposed Procedures p Trochanteric Femoral Nail(Left) - Davida Mendez MD Familial anesthetic complications: None Was Beta Michelle taken within 24 hours: N/A Was Clonidine taken within 24 hours: N/A Last intake: Intake Last Liquid Date 07/21/24 Last Liquid Time 20:00 Last Solid Date 07/21/24 Last Solid Time 17:00 Social No alcohol and No tobacco Exam alert, oriented x 3, clear to auscultation bilaterally and regular rate & rhythm Airway Mallampati: Class I Dentition: false Neuropsych multiple sclerosis Anesthetic Plan ASA status: 3 Anesthesia: General Risk of > 500 ml blood loss (7ml/kg in children): No Medications/Allergies Home Medications ?Medication ?Instructions ?Recorded ?Confirmed ?Last Taken ?Type baclofen 10 mg tablet 10 mg PO TID 02/19/23 07/21/24 11/24/23 History Bathroom hand rails #1 ea 03/06/23 07/22/24 Unknown Rx dimethyl fumarate 240 mg 240 mg PO BID 08/14/23 07/21/24 11/24/23 History capsule,delayed release (Tecfidera) gabapentin 100 mg capsule 100 mg PO 3XD 02/02/24 07/21/24 Unknown History duloxetine 30 mg capsule,delayed 30 mg PO BID 90 days #180 caps 02/16/24 07/22/24 07/21/24 Rx release celecoxib 100 mg capsule (Celebrex) 100 mg PO BID 30 days #60 caps 06/15/24 07/21/24 Unknown Rx amoxicillin 500 mg tablet 1,500 mg PO DAILY 07/12/24 07/22/24 07/21/24 History 1500 mg dexamethasone 4 mg tablet 4 mg PO DAILY 07/12/24 07/22/24 07/21/24 History ibuprofen 800 mg tablet 800 mg PO Q8H 07/12/24 07/22/2407/21/25 History triamcinolone acetonide 0.1 % 1 applic topical BID 10 days #30 07/12/24 07/22/24 07/21/24 Rx topical cream grams ergocalciferol (vitamin D2) 1,250 See Rx Instructions .Route 07/20/24 07/22/24 Unknown Rx mcg (50,000 unit) capsule .COMPLEX #4 caps lorazepam 0.5 mg tablet 0.5 mg PO DAILY PRN anxiety 07/21/24 07/21/24 Unknown History chlorhexidine gluconate 0.12 % 15 ml PO BID 07/22/24 07/22/24 Unknown History mouthwash Allergies Allergy/AdvReac Type Severity Reaction Status Date / Time No Known Allergies Allergy Verified 07/19/24 11:14 Current Medications Generic Name Dose Route Start Last Admin Trade Name Freq PRN Reason Stop Dose Admin Baclofen 10 mg 07/22/24 09:00 07/22/24 08:27 Baclofen 10 Mg Tablet PO 10 mg On Hold: 07/22/24 10:21 TID HANY Administration Comment: Order held by Process Transfer Celecoxib 100 mg 07/22/24 09:00 07/22/24 08:27 Celecoxib 100 Mg Capsule PO 100 mg On Hold: 07/22/24 10:21 BID HANY Administration Comment: Order held by Process Transfer Duloxetine HCl 30 mg 07/22/24 09:00 07/22/24 08:27 Duloxetine 30 Mg Capsule PO 30 mg On Hold: 07/22/24 10:21 BID HANY Administration Comment: Order held by Process Transfer Gabapentin 100 mg 07/22/24 09:00 07/22/24 08:27 Gabapentin 100 Mg Capsule PO 100 mg On Hold: 07/22/24 10:21 TID HANY Administration Comment: Order held by Process Transfer Sodium Chloride 1,000 mls @ 75 mls/hr 07/22/24 03:45 07/22/24 06:00 Sodium Chloride 0.9% IV 75 mls/hr On Hold: 07/22/24 10:21 .[id number] HANY Administration Comment: Order held by Process Transfer Morphine Sulfate 4 mg 07/21/24 23:48 07/22/24 00:19 Morphine 4 Mg/Ml Sdv 1 Ml IVP 4 mg On Hold: 07/22/24 10:21 Q4H PRN Administration Comment: Order held by Process SEVERE PAIN Transfer Nicotine 1 patch 07/22/24 02:15 07/22/24 02:48 Nicotine 14 Mg Patch TRANSDERMA 1 patch On Hold: 07/22/24 10:21 DAILY HANY Administration Comment: Order held by Process Transfer Non-Formulary 0 each 07/22/24 10:00 07/22/24 09:47 Medication Dimethyl PO 1 each Fumarate 240 Mg BID HANY Administration Delayed-Release Capsules On Hold: 07/22/24 10:21 Comment: Order held by Process Transfer Pantoprazole Sodium 40 mg 07/22/24 03:45 07/22/24 06:05 Pantoprazole 40 Mg Sdv IVP 40 mg On Hold: 07/22/24 10:21 Q24H HANY Administration Comment: Order held by Process Transfer [facility] Anesthesia Medical History DJD (degenerative joint disease), lumbar Seizures Low back pain Osteoarthritis Multiple sclerosis Surgical History History of laparoscopic cholecystectomy No pertinent past surgical history Family History Other Lung disease Social History Smoking and tobacco/nicotine status: never used tobacco/nicotine Alcohol intake: current Alcohol intake frequency: 3 or more drinks per day Alcohol type: wine Substance/Drug Use: never Adopted: No Caregiver/support person: No Lives independently: Yes Do you think of yourself as: Straight/Heterosexual Current gender identity: Female Data Anesthesia 07/22/24 04:50 07/22/24 04:50 Short CBC 07/21/24 07/22/24 Range/Units 19:50 04:50 WBC 11.33 9.35 (3.29-11.43) 10^3/uL Hgb 12.50 11.50 (11.27-16.99) g/dL Hct 36.0 33.9 L (36-47) % MCV 94.7 92.9 (85-98) fl Plt Count 316 299 (157-399) 10^3/cmm Neut % (Auto) 61.9 63.4 % Neut # (Auto) 7.00 5.92 (1.8-7.7) 10^3/uL BMP 07/21/24 07/22/24 19:50 04:50 Sodium 133 L 136 Potassium 3.6 4.0 Chloride 96 L 102 Carbon Dioxide 27 25 BUN 15 11 Creatinine 0.4 L 0.4 L Glucose 85 99 Calcium 8.8 8.6 Liver Function 07/21/24 07/22/24 Range/Units 19:50 04:50 Total Bilirubin 0.4 0.5 (0.15-1.2) mg/dL AST 120 H 177 H (0-32) U/L ALT 95 H 161 H (0-33) U/L Alkaline Phosphatase 95 118 H (35-105) U/L Albumin 4.1 3.9 (3.5-5.2) g/dL Urine 07/22/24 Range/Units 09:08 Urine Color Yellow (Yellow) Urine Appearance Clear (CLEAR) Urine pH 6.5 (5-7) Ur Specific Gervais 1.014 (1.005-1.030) Urine Protein Negative (Negative) Urine Glucose (UA) Negative (Normal) Urine Ketones 3+ H (Negative) Urine Nitrate Negative (Negative) Urine Bilirubin Negative (Negative) Ur Leukocyte Esterase 1+ A (Negative) Urine RBC 11-20 H (0-2) /hpf Urine WBC 21-50 H (0-5) /hpf
--- NOTE | 2024-07-22 10:38 | PM.CONSULT ---
Providers/Reason For Consult Consulting Physician/Specialty*: Davida Mendez MD Reason for Consult*: Left intertrochanteric hip fracture with subtrochanteric extension Requesting Physician: Dr. Jarvis Gonzalez Attending Physician: Dov Carson MD Primary Care Provider: ROSA Nguyen History of Present Illness History of Present Illness Via Anderson Henao is a 59 year old female who was in her usual state of health when she fell attempting to get onto a bus to go to her doctor's appointment. She notes her shoe caught on the ground. She fell onto the left side and was unable to ambulate. She was brought to the emergency department via EMS. Patient has a history of multiple sclerosis as well as foot issues for which she sees Dr. Larry. She was admitted to the medical service after being diagnosed with a left intertrochanteric hip fracture with subtrochanteric extension. After review of the x-rays, she was added to the surgical schedule. She will be seen preoperatively. Review of Systems General: Reports: 10 or more systems reviewed and unremarkable except in HPI and below Const: Denies: fever(s) or chills Eyes: Denies: photophobia Card: Denies: chest pain Resp: Denies: dyspnea Musc: Reports: extremity pain (Left hip) and limited range of motion Medications/Allergies Home Medications ?Medication ?Instructions ?Recorded ?Confirmed ?Last Taken ?Type baclofen 10 mg tablet 10 mg PO TID 02/19/23 07/21/24 11/24/23 History Bathroom hand rails #1 ea 03/06/23 07/22/24 Unknown Rx dimethyl fumarate 240 mg 240 mg PO BID 08/14/23 07/21/24 11/24/23 History capsule,delayed release (Tecfidera) gabapentin 100 mg capsule 100 mg PO 3XD 02/02/24 07/21/24 Unknown History duloxetine 30 mg capsule,delayed 30 mg PO BID 90 days #180 caps 02/16/24 07/22/24 07/21/24 Rx release celecoxib 100 mg capsule (Celebrex) 100 mg PO BID 30 days #60 caps 06/15/24 07/21/24 Unknown Rx amoxicillin 500 mg tablet 1,500 mg PO DAILY 07/12/24 07/22/24 07/21/24 History 1500 mg dexamethasone 4 mg tablet 4 mg PO DAILY 07/12/24 07/22/24 07/21/24 History ibuprofen 800 mg tablet 800 mg PO Q8H 07/12/24 07/22/24 07/21/24 History triamcinolone acetonide 0.1 % 1 applic topical BID 10 days #30 07/12/24 07/22/24 07/21/24 Rx topical cream grams ergocalciferol (vitamin D2) 1,250 See Rx Instructions .Route 07/20/24 07/22/24 Unknown Rx mcg (50,000 unit) capsule .COMPLEX #4 caps lorazepam 0.5 mg tablet 0.5 mg PO DAILY PRN anxiety 07/21/24 07/21/24 Unknown History chlorhexidine gluconate 0.12 % 15 ml PO BID 07/22/24 07/22/24 Unknown History mouthwash Allergies Allergy/AdvReac Type Severity Reaction Status Date / Time No Known Allergies Allergy Verified 07/19/24 11:14 Current Medications Generic Name Dose Route Start Last Admin Trade Name Freq PRN Reason Stop Dose Admin Baclofen 10 mg 07/22/24 09:00 07/22/24 08:27 Baclofen 10 Mg Tablet PO 10 mg On Hold: 07/22/24 10:21 TID HANY Administration Comment: Order held by Process Transfer Celecoxib 100 mg 07/22/24 09:00 07/22/24 08:27 Celecoxib 100 Mg Capsule PO 100 mg On Hold: 07/22/24 10:21 BID HANY Administration Comment: Order held by Process Transfer Duloxetine HCl 30 mg 07/22/24 09:00 07/22/24 08:27 Duloxetine 30 Mg Capsule PO 30 mg On Hold: 07/22/24 10:21 BID HANY Administration Comment: Order held by Process Transfer Gabapentin 100 mg 07/22/24 09:00 07/22/24 08:27 Gabapentin 100 Mg Capsule PO 100 mg On Hold: 07/22/24 10:21 TID HANY Administration Comment: Order held by Process Transfer Sodium Chloride 1,000 mls @ 75 mls/hr 07/22/24 03:45 07/22/24 06:00 Sodium Chloride 0.9% IV 75 mls/hr On Hold: 07/22/24 10:21 .[id number] HANY Administration Comment: Order held by Process Transfer Sodium Chloride 1,000 mls @ 30 mls/hr 07/22/24 10:30 07/22/24 10:34 Sodium Chloride 0.9% IV 07/23/24 10:29 30 mls/hr .Q24H HANY Administration Morphine Sulfate 4 mg 07/21/24 23:48 07/22/24 00:19 Morphine 4 Mg/Ml Sdv 1 Ml IVP 4 mg On Hold: 07/22/24 10:21 Q4H PRN Administration Comment: Order held by Process SEVERE PAIN Transfer Nicotine 1 patch 07/22/24 02:15 07/22/24 02:48 Nicotine 14 Mg Patch TRANSDERMA 1 patch On Hold: 07/22/24 10:21 DAILY HANY Administration Comment: Order held by Process Transfer Non-Formulary 0 each 07/22/24 10:00 07/22/24 09:47 Medication Dimethyl PO 1 each Fumarate 240 Mg BID HANY Administration Delayed-Release Capsules On Hold: 07/22/24 10:21 Comment: Order held by Process Transfer Pantoprazole Sodium 40 mg 07/22/24 03:45 07/22/24 06:05 Pantoprazole 40 Mg Sdv IVP 40 mg On Hold: 07/22/24 10:21 Q24H HANY Administration Comment: Order held by Process Transfer PFSH Acute PFSH: Medical History DJD (degenerative joint disease), lumbar Seizures Low back pain Osteoarthritis Multiple sclerosis Surgical History History of laparoscopic cholecystectomy No pertinent past surgical history Family History Other Lung disease Social History Smoking and tobacco/nicotine status: never used tobacco/nicotine Alcohol intake: current Alcohol intake frequency: 3 or more drinks per day Alcohol type: wine Substance/Drug Use: never Adopted: No Caregiver/support person: No Lives independently: Yes Do you think of yourself as: Straight/Heterosexual Current gender identity: Female Dietary Habits: Current diet type/program: regular Personal Safety: Do you feel safe at home: Yes Victim of physical abuse: No Victim of emotional abuse: No Victim of sexual abuse: No Would you like help information on resources?: No Vitals/I&O/Wt Last Vital Signs Temp 97.4 F L 07/22/24 10:29 Pulse 67 07/22/24 10:29 Resp 16 07/22/24 10:29 BP 102/64 07/22/24 10:29 Pulse Ox 95 07/22/24 10:29 O2 Del Method Room Air 07/22/24 10:29 07/21/24 07/22/24 07/22/24 22:59 06:59 14:59 Intake Total 1000 / 1000 Output Total 1600 / 1600 600 / 600 Balance -1600 / -1600 400 / 400 Weight last 48 hrs Weight 107 lb 3.2 oz Weight 110 lb Weight 100 lb Physical Exam Const: COMMON NORMALS: no acute distress, average body habitus, patient oriented x3 and alert GENERAL APPEARANCE: cooperative and comfortable NUTRITIONAL APPEARANCE: thin ORIENTATION/CONSCIOUSNESS: Yes awake HENMT: COMMON NORMALS: normocephalic and atraumatic HEAD & SCALP: normocephalic and atraumatic Eye: GENERAL EYE: appearance normal, both eyes and all related structures Chest: COMMONS NORMALS: normal inspection of the chest Resp: COMMON NORMALS: normal respiratory effort EFFORT & INSPECTION: Yes able to speak in complete sentences and Yes symmetric chest movement Extremity: LEFT LOWER EXTREMITY: Yes hip joint (No significant bruising, prior scar, remote lateral thigh) Left hip: Yes inspection (No significant swelling), Yes ROM (Not evaluated secondary to pain) and Yes neurovascular exam (Intact distally to motor and sensory) Neuro: COMMON NORMALS: patient oriented x3 SENSORIUM/ORIENTATION: Yes alert Psych: COMMON NORMALS: mental status grossly normal APPEARANCE: Yes grossly normal ATTITUDE: Yes calm and Yes engaged ATTENTION/CONCENTRATION: Yes attention grossly intact Skin: COMMON NORMALS: no rashes or lesions noted GENERAL SKIN EXAM: no rashes or lesions noted Urinary Catheter Management: Park: Cath Placed During This Visit: yes Reason for Continuing Indwelling Catheter: Perioperative Use in Selected Surgeries Urinary Catheter Date of Insertion: 07/21/24 Urinary Catheter Time of Insertion: 19:50 Data 07/22/24 04:50 07/22/24 04:50 Xray Ortho: My impression: I have personally reviewed the patient's left hip imaging. She has a slightly comminuted intertrochanteric hip fracture which actually exits below the lesser trochanter making it a intertrochanteric hip fracture with subtrochanteric extension. There is coxa vera deformity as well. Overall findings are consistent with intertrochanteric hip fracture with subtrochanteric extension. A&P Assessment and plan (1) Closed intertrochanteric fracture of left hip: Patient is seen in the preop holding area. She fell while getting on a bus to go to her doctor's appointment. She fell onto the left side and suffered an intertrochanteric hip fracture with subtrochanteric extension. This is a displaced fracture. Her postoperative rehabilitation will be complicated by the fact that she has had longstanding MS since her late teens. She denies any significant sensory issues in this lower extremity, but she states that she has dragged this left foot for a long time . X-rays were reviewed and appropriate treatment will include a gamma nail. The risks and complications of this procedure are discussed with the patient. She understands, and although she is frustrated with the length of time for healing, she understands the procedure as well as the risks and complications. Consents are signed and questions were answered. (2) Subtrochanteric fracture of left femur: PDMP PDMP Reviewed: Not Reviewed Coding Level of Care Code Acute Code for Chg Fwd Diagnoses Closed displaced intertrochanteric fracture of left femur, initial encounter S72.142A Encounter type: initial encounter Fracture alignment: displaced Closed displaced subtrochanteric fracture of left femur, initial encounter S72.22XA Encounter type: initial encounter Fracture alignment: displaced Fracture type: closed
[2024-07-22] MEDS: ceFAZolin 2,000 mg SDV 2000 MG IVP ×2 (11:25→19:44)
[2024-07-22] MEDS: ceFAZolin 1,000 mg SDV 1000 MG XX (12:13)
[2024-07-22] MEDS: tranexamic acid 1,000 MG/100 ML PREMIX 600 MG IV (12:25)
--- NOTE | 2024-07-22 12:46 | XR_ITS ---
WS: [id number] C-ARM RADIOGRAPHS LEFT HIP; 3 IMAGES HISTORY: OR PICS COMPARISON: None available. Intraoperative ORIF intertrochanteric fracture with avulsion of the lesser trochanter. Fracture in good position and alignment. Gamma nail and short intramedullary jevon are identified in good position. XR/XR hip LT 2-3V wo/w pel* [id number] IMPRESSION: Status post ORIF LEFT intertrochanteric hip fracture good position and alignmen t.
--- NOTE | 2024-07-22 13:08 | P.PN_ITS ---
Subjective 2 Subjective: Admitted overnight. Concern for femoral neck fracture. On examination today patient is emotional, complaining of pain and asking for her MS medications to be started. Plan for OR later in the day today. Otherwise has remained hemodynamically stable and afebrile overnight. Vitals/I&O/Wt Last Vital Signs Temp 97.1 F L 07/22/24 12:57 Pulse 88 07/22/24 13:02 Resp 14 07/22/24 13:02 BP 81/44 07/22/24 13:02 Pulse Ox 97 07/22/24 13:02 O2 Del Method Room Air 07/22/24 13:02 07/21/24 07/22/24 07/22/24 22:59 06:59 14:59 Intake Total 1200 / 1200 Output Total 1600 / 1600 700 / 700 Balance -1600 / -1600 500 / 500 Weight last 48 hrs Weight 48.625 kg Weight 49.895 kg Weight 45.359 kg Physical Exam 2 Narrative: General: In distress because of hip pain, AO x3, anxious, emotional HEENT: PERRLA, pupils bilaterally equal and reactive Chest: Normal vesicular breath sounds, no added sounds, equal good air entry bilaterally CVS: S1-S2 regular, no murmurs, no tachycardia, no gallops, no rubs Abdomen: Soft, nontender, no organomegaly, bowel sounds present Neuro: No focal deficits, no facial deformity, AO x3, power 5/5 in all limbs Urinary Catheter Management: Park: Cath Placed During This Visit: yes Reason for Continuing Indwelling Catheter: Perioperative Use in Selected Surgeries Urinary Catheter Date of Insertion: 07/21/24 Urinary Catheter Time of Insertion: 19:50 Data 07/22/24 04:50 07/22/24 04:50 A&P Assessment and plan (1) Femoral neck fracture: Orthopedic consulted from the ER. Plan for ORIF later in the day. PT/pain medication, anticoagulation as per orthopedic team. Monitor hemoglobin. (2) Multiple sclerosis: Restart home medications. Will monitor for adrenal insufficiency. If needed will start on daily NIF. Incentive spirometry. (3) Alcohol abuse, in remission: Patient claims to still be in remission. Check alcohol level. (4) Anxiety: Continue home Xanax as needed, duloxetine. 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 (6) Osteoarthritis: Continue management with arthritis medication Plan NPO. Regular diet postoperatively Full code. Foot pumps, heparin 5000 every 12 hourly for DVT prophylaxis. 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
[2024-07-22] MEDS: fentaNYL 50 mcg/mL INJ 2mL IVP ×2 (13:12→13:17)
[2024-07-22] MEDS: HYDROmorphone 1 mg/mL INJ 1ml 0.5 MG IVP ×2 (13:26→13:37)
--- NOTE | 2024-07-22 13:42 | P.OP_ITS ---
Operative Report Date of procedure: July 22, 2024 Pre-op diagnosis: Left intertrochanteric hip fracture with subtrochanteric extension Post-op diagnosis: Left intertrochanteric hip fracture with subtrochanteric extension Post-op findings: Oblique slightly comminuted intertrochanteric hip fracture Procedure done: Open reduction internal fixation left intertrochanteric hip fracture Implants: Dannie gamma 3 trochanteric nail size 11 mm x 180 mm x 125 degrees with a 10.5 mm x 90 mm proximal lag screw and a distal locking screw size 5 mm x 32.5 mm Specimens removed/disposition: None Pathology: None Surgeon: Davida Mendez MD Numerical Control Operator: None Anesthesia: General (Per LMA, ASA 3) Estimated blood loss (mL): 100 IV fluids (mL): 800 Urine output (mL): 50 Complications: None Findings: Comminuted displaced intertrochanteric hip fracture with subtrochanteric extension Disposition: PACU (Then return to floor for postoperative rehabilitation and pain management) Brief History: This 59-year-old woman was in her usual state of health when she was attempting to get on the bus to go to her doctor's appointment. She slipped falling onto the right side when her shoe caught on the ground. She has a history of multiple sclerosis, and she notes that she has dragged this left foot for an extended period of time. Patient was brought to the hospital via EMS and was admitted to the hospitalist team for optimization for surgical intervention. She was seen preoperatively, and the surgical procedure was described to her. Consents were signed and questions were answered at that time. Plans were made for open reduction internal fixation of a left intertrochanteric hip fracture with subtrochanteric extension. Procedure: Patient is brought to the operating theater. After undergoing adequate general anesthesia per LMA, ASA 3, the patient was transferred to the fracture table, positioned on the table and fluoroscopic guidance obtained throughout the surgical procedure. Prior to the commencement of the surgical procedure, a surgical pause was performed. At the time of the surgical pause, we confirmed the site and side of surgery as well as preoperative surgical markings and appropriate and timely administration of IV antibiotics, Ancef 2 g. Availability of equipment was also confirmed. Fluoroscopy was used to confirm the fracture was appropriately reduced in both AP and lateral planes. An incision was then made slightly above the greater trochanter to allow access to the greater trochanter. An awl was used to enter the greater trochanter and a guidewire was subsequently placed. Once the guidewire was confirmed to be in appropriate position in AP and lateral planes, reaming was accomplished over this to allow for the proximal diameter of the nail. Guidewire was then removed. An 11 mm x 180 mm x 125 degree gamma 3 trochanteric nail was placed into appropriate position with positioning being confirmed in AP and lateral planes on the x-ray. It passed without difficulty. Guidewire was then passed through the jigging system into the femoral head. We wanted to be center or slightly inferior and posterior to center. Guidewire was placed into appropriate position. Patient did have an inferior cyst in the femoral head, and care was taken to avoid this. Once the guidewire was in appropriate position and this position was confirmed by x-ray. This was then measured and we chose a 10.5 mm by 90 mm lag screw. We reamed to allow for the lag screw to be placed. The 90 mm lag screw was then passed into the femoral head through the trochanteric n ail. This was passed uneventfully and again position was confirmed in AP and lateral planes. Compression was obtained under fluoroscopic guidance. The set screw was then placed in position, tightened completely, and subsequently backed off one-quarter turn. The construct was left in position and attention was directed distally. Cannulas were again used to determine appropriate placement for the distal screw. This was placed in position without difficulty. It was measured off of the drill. The appropriate length screw was then obtained and placed in position without difficulty. Once the screw was in position, we confirmed appropriate placement of the components, and we removed the jigging system. Attention was then directed to closure. The hip was copiously irrigated with normal saline wi th antibiotics. Following this it was dried and closed. Tensor fascia gia was closed proximally with 0 Vicryl in an interrupted fashion. Subcutaneous tissues were closed with 2-0 Monocryl, and the skin was closed with a continuous 3-0 Monocryl subcuticular stitch. This was then covered with Prineo and OpSite. The patient was removed from the fracture table and returned to recovery in satisfactory condition. The patient will be discharged to the floor for postoperative rehabilitation and pain management. There were no specimens obtained. Related Problem List Diagnoses (1) Closed intertrochanteric fracture of left hip: (2) Subtrochanteric fracture of left femur:
--- NOTE | 2024-07-22 13:55 | ANE.PACU2 ---
Inpatient post-anesthesia follow up: Airway intact: Yes Vital signs: Temperature 98.0 F Pulse Rate 81 Respiratory Rate 15 Blood Pressure 99/56 Pulse Oximetry 98 Oxygen Delivery Me thod Room Air Oxygen Flow Rate Fraction of Inspir ed Oxygen Hydration adequate: Yes Nausea and vomiting: No Pain level: 1 Mental status: Baseline
--- NOTE | 2024-07-22 14:01 | PC.NURSE ---
1350 pt taken upstairs to room 270. Pain @ 4. Report given prior to taking patient to room. VS in room - bp-94/61 p 80 r16 sat 99 temp 98.4
[2024-07-22] MEDS: acetaminophen 500 mg Tablet 1000 MG PO ×2 (14:45→21:34)
[2024-07-22] MEDS: docusate sodium 100 mg Capsule PO (17:14)
--- NOTE | 2024-07-22 17:16 | PC.NURSE ---
Medication: MS medication now left at bedside. Verified by pharmacy and labeled
[2024-07-22] MEDS: oxyCODONE 5 mg IR Tab/Cap PO (18:31)
[2024-07-22] MEDS: sennosides 8.6 mg Tablet 17.2 MG PO (21:34)
[2024-07-23] VITALS (8 sets, daily range): BP systolic 100–115; BP diastolic 62–69; PULSE 73–79; RESP 15–18; TEMP 36.7–37.3; O2SAT 95–98
[2024-07-23] MEDS: oxyCODONE 5 mg IR Tab/Cap PO ×4 (02:03→21:21)
[2024-07-23 03:16] LABS: Basophils % 0.4 %; Eosinophils # 0.1 10^3/uL (0.0-0.8); Eosinophils % 1.2 %; Hematocrit 28.1 % (36-47); Lymphocytes # 1.6 10^3/uL (0.8-4.8); Lymphocytes % 18.6 %; Mean Corpuscular HGB Conc 32.7 g/dL (30-55); Mean Corpuscular Hemoglobin 31.5 pg (27-33); Mean Corpuscular Volume 96.2 fl (85-98); Mean Platelet Volume 9.9 fL (7.4-10.4); Monocytes # 1.5 10^3/uL (0.2-0.9); Neutrophils # 5.14 10^3/uL (1.8-7.7); Neutrophils % 61.4 %; Nucleated Red Blood Cells % 0 %; Platelet Count 230 10^3/cmm (157-399); Red Blood Count 2.92 10^6/uL (3.85-5.65); Red Cell Distribution Width 13.4 % (12.1-15.1); White Blood Count 8.37 10^3/uL (3.29-11.43)
[2024-07-23 03:32] LABS: Magnesium 2.1 mg/dL (1.7-2.3)
[2024-07-23 03:35] LABS: Alanine Aminotransferase 92 U/L (0-33); Albumin Level 3.6 g/dL (3.5-5.2); Alkaline Phosphatase 99 U/L (35-105); Anion Gap 13.3 (5-19); Aspartate Amino Transferase 56 U/L (0-32); Blood Urea Nitrogen 9 mg/dL (8-23); Calcium 8.4 mg/dL (8.5-10.5); Carbon Dioxide 25 mmol/L (22-29); Chloride 102 mmol/L (98-107); Globulin 2.4 g/dL (1.3-4.6); Glomerular Filtration Rate 162.8 mL/min (90-130); Glucose 105 mg/dL (65-115); Osmolality Calculated 281 mOsm/kg (285-295); Potassium 4.3 mmol/L (3.5-5.1); Sodium 136 mmol/L (136-145); Total Bilirubin 0.5 mg/dL (0.15-1.2)
[2024-07-23] MEDS: pantoprazole 40 mg SDV IVP (03:55)
[2024-07-23] MEDS: ceFAZolin 2,000 mg SDV 2000 MG IVP ×2 (03:55→11:50)
[2024-07-23] MEDS: acetaminophen 500 mg Tablet 1000 MG PO ×3 (05:17→21:20)
[2024-07-23] MEDS: sodium chloride 0.9% 1,000 ML 75 ML IV (05:18)
[2024-07-23 06:48] LABS: Folate Level > 20.0 ng/mL (4.8-37.3)
[2024-07-23] MEDS: docusate sodium 100 mg Capsule PO ×2 (08:48→17:29)
[2024-07-23] MEDS: nicotine 14 mg Patch 1 PATCH TRANSDERMA (08:48)
[2024-07-23] MEDS: aspirin 325 mg EC Tablet PO (08:48)
[2024-07-23] MEDS: CELEcoxib 200 mg Capsule PO (08:49)
[2024-07-23] MEDS: DIMETHYL FUMARATE 240 MG PO ×2 (08:49→17:29)
[2024-07-23] MEDS: gabapentin 100 mg Capsule PO ×3 (08:49→21:21)
[2024-07-23] MEDS: baclofen 10 mg Tablet PO ×3 (08:49→21:21)
[2024-07-23] MEDS: duloxetine 30 mg Capsule PO ×2 (08:49→17:29)
[2024-07-23] MEDS: triamcinolone 0.1% cream 15 gm 1 APPLIC TOPICAL (08:50)
[2024-07-23 10:55] LABS: Amphetamines Screen Urine Negative (Negative); Barbiturates Screen Urine Negative (Negative); Benzodiazepines Screen Urine Positive (Negative); Cocaine Screen Urine Negative (Negative); Opiate Screen Urine Positive (Negative); PCP Screen Urine Negative (Negative); THC Screen Urine Positive (Negative)
--- NOTE | 2024-07-23 11:17 | P.PN_ITS ---
Subjective 2 Subjective: No acute events overnight. Patient lying comfortably in bed. Waiting to work with physical therapy. Denies any nausea, vomiting, headache. Vitals/I&O/Wt Last Vital Signs Temp 98.1 F 07/23/24 08:00 Pulse 75 07/23/24 08:00 Resp 16 07/23/24 08:00 BP 113/69 07/23/24 08:00 Pulse Ox 96 07/23/24 08:00 O2 Del Method Room Air 07/23/24 08:00 07/22/24 07/23/24 07/23/24 22:59 06:59 14:59 Intake Total 962.5 / 3162.5 905 / 4067.5 360 / 360 Output Total 750 / 1500 150 / 1650 Balance 212.5 / 1662.5 755 / 2417.5 360 / 360 Weight last 48 hrs Weight 55.474 kg Weight 48.625 kg Weight 49.895 kg Weight 45.359 kg Physical Exam 2 Narrative: General: In distress because of hip pain, AO x3, anxious, emotional HEENT: PERRLA, pupils bilaterally equal and reactive Chest: Normal vesicular breath sounds, no added sounds, equal good air entry bilaterally CVS: S1-S2 regular, no murmurs, no tachycardia, no gallops, no rubs Abdomen: Soft, nontender, no organomegaly, bowel sounds present Neuro: No focal deficits, no facial deformity, AO x3, power 5/5 in all limbs Urinary Catheter Management: Park: Cath Placed During This Visit: yes, but has since been removed by the nurse Reason for Continuing Indwelling Catheter: Perioperative Use in Selected Surgeries Urinary Catheter Date of Insertion: 07/21/24 Urinary Catheter Time of Insertion: 19:50 Date Urinary Catheter Removed: 07/23/24 Time Urinary Catheter Discontinued: 06:19 Data 07/23/24 02:24 07/23/24 02:24 Micro: Microbiology 07/22/24 09:08 Urine Culture - Preliminary Urine,Clean Catch A&P Assessment and plan (1) Femoral neck fracture: Post-ORIF from 07/22. PT evaluation. Started on aspirin 325 mg daily for anticoagulation as per orthopedic team. Change oxycodone to 5 mg every 6 hour as needed. Hemoglobin stable. (2) Multiple sclerosis: Continue with home medications. Will monitor for adrenal insufficiency. If needed will start on daily NIF. Incentive spirometry. (3) Alcohol abuse, in remission: Patient claims to still be in remission. Negative alcohol level. (4) Anxiety: Continue home Xanax as needed, duloxetine. 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 (6) Osteoarthritis: Continue management with arthritis medication (7) Encounter for postoperative care: (8) Status post open reduction and internal fixation (ORIF) of fracture: Plan Regular diet. Full code. Foot pumps, heparin 5000 every 12 hourly for DVT prophylaxis. Protonix for PUD prophylaxis Discharge plan: Discussed continue with the patient. Discussed need for physical therapy. She is agreeable. Possible transition to inpatient rehab for further physical therapy. 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
[2024-07-23] MEDS: heparin 5,000 unit/mL INJ 1 mL 5000 UNIT SUBCUT ×2 (11:50→22:35)
--- NOTE | 2024-07-23 11:52 | PC.CHAP ---
Pastoral Care Encounter/Spiritual Assessment Type of Contact [] Declined principal statistical programmer visit [] Patient/Family/Request visit [] Outpatient visit [] Follow-up visit [] Physician referral [] Code/Alert [x] Routine visit [] Staff referral [] Actively dying [] Patient sleeping [] Family support [] [] Out of room [] Palliative care [] [] Receiving care in room [] Pre-surgical visit [] Trauma [] Long length of stay [] ICU visit [] Other: Relational/Emotional Strength [] Patient feels connected with others/family/visitors/staff [] Distress [] Loneliness/isolation [] Abandonment Spirituality of Patient [] Person of Ale [] Attends Buddhism of their Ale [] Believes in Prayer [] Reads Bible or Latter Day materials [] There are Spiritual issues to be addressed Journeyman Machinist Interventions [] Prayer [] Active listening [] Non-anxious presence [] Spiritual/emotional support [] Crisis/trauma care [] Spiritual counseling [] Bereavement support [] Provided bereavement packet [] Provided Bible/devotional materials [] Provided toy/stuffed animal, coloring book to patient or family member [] Provided Communion [] Anointing/[place] [] Salvation [] Completed spiritual assessment [] Other: Impact on Illness or Injury [] Angry [] Fearful [] Anxious [] Often cries [] Exhaustion [] Unable to work [] Unable to attend baptism [] Unable to walk/stand [] Unable to read [] Unable to drive [] Unable to eat/drink [] Unable to sleep [] Unable to be with family [] Patient intubated [] Other: Summary Staff in Room Time spent with patient
--- NOTE | 2024-07-23 16:29 | P.PN_ITS ---
Subjective 2 Subjective: Patient is laying in her bed with her knees pulled up and her hip flexed approximately 90 degrees. She has little complaint of pain. She has worked with physical therapy. Medications: Reviewed: Yes Vitals/I&O/Wt Last Vital Signs Temp 98.1 F 07/23/24 16:00 Pulse 76 07/23/24 16:00 Resp 17 07/23/24 16:00 BP 104/62 07/23/24 16:00 Pulse Ox 95 07/23/24 16:00 O2 Del Method Room Air 07/23/24 16:00 07/23/24 07/23/24 07/23/24 06:59 14:59 22:59 Intake Total 905 / 4067.5 720 / 720 Output Total 150 / 1650 Balance 755 / 2417.5 720 / 720 Weight last 48 hrs Weight 122 lb 4.8 oz Weight 107 lb 3.2 oz Weight 110 lb Physical Exam 2 Const: COMMON NORMALS: no acute distress, average body habitus, patient oriented x3 and alert GENERAL APPEARANCE: cooperative and comfortable N UTRITIONAL APPEARANCE: thin ORIENTATION/CONSCIOUSNESS: Yes awake HENMT: COMMON NORMALS: normocephalic and atraumatic HEAD & SCALP: n ormocephalic and atraumatic Eye: GENERAL EYE: appearance normal, both eyes and all related structures Chest: COMMONS NORMALS: normal inspection of the chest Resp: COMMON NORMALS: normal respiratory effort EFFORT & INSPECTION: Yes able to speak in complete sentences and Yes symmetric chest movement Extremity: LEFT LOWER EXTREMITY: Yes hip joint (Dressing is dry and intact) Left hip: Yes inspection (No significant ecchymosis) and Yes neurovascular exam (Intact distally with no evidence of DVT) Neuro: COMMON NORMALS: patient oriented x3 SENSORIUM/ORIENTATION: Yes alert Psych: COMMON NORMALS: mental status grossly normal APPEARANCE: Yes grossly normal ATTITUDE: Yes calm and Yes engaged ATTENTION/CONCENTRATION: Yes attention grossly intact Skin: COMMON NORMALS: no rashes or lesions noted GENERAL SKIN EXAM: no rashes or lesions noted Urinary Catheter Management: Park: Cath Placed During This Visit: yes, but has since been removed by the nurse Reason for Continuing Indwelling Catheter: Perioperative Use in Selected Surgeries Urinary Catheter Date of Insertion: 07/21/24 Urinary Catheter Time of Insertion: 19:50 Date Urinary Catheter Removed: 07/23/24 Time Urinary Catheter Discontinued: 06:19 Data 07/23/24 02:24 07/23/24 02:24 Micro: Microbiology 07/22/24 09:08 Urine Culture - Preliminary Urine,Clean Catch A&P Assessment and plan (1) Closed intertrochanteric fracture of left hip: Patient fell while getting on a bus to go to her doctor's appointment. She fell onto the left side and suffered an intertrochanteric hip fracture with subtrochanteric extension. This is a displaced fracture. Her postoperative rehabilitation will be complicated by the fact that she has had longstanding MS since her late teens. She denies any significant sensory issues in this lower extremity, but she states that she has dragged this left foot for a long time . Patient underwent open reduction fixation uneventfully. She is working with physical therapy today. She has no evidence of DVT or other complication. (2) Subtrochanteric fracture of left femur: PDMP PDMP Reviewed: Not Reviewed Attestations 2 Medical Necessity Statement*: Per medical team Coding Level of Care Code Acute Code for [facility] Diagnoses Closed displaced intertrochanteric fracture of left femur, initial encounter S72.142A Encounter type: initial encounter Fracture alignment: displaced Closed displaced subtrochanteric fracture of left femur, initial encounter S72.22XA Encounter type: initial encounter Fracture type: closed Fracture alignment: displaced
[2024-07-23] MEDS: sennosides 8.6 mg Tablet 17.2 MG PO (21:21)
[2024-07-24] VITALS (8 sets, daily range): BP systolic 96–122; BP diastolic 63–82; PULSE 66–86; RESP 15–19; TEMP 36.3–37.4; O2SAT 96–98
[2024-07-24] MEDS: pantoprazole 40 mg SDV IVP (02:51)
[2024-07-24] MEDS: oxyCODONE 5 mg IR Tab/Cap PO ×2 (02:52→08:50)
[2024-07-24 04:01] LABS: Basophils # 0.1 10^3/uL (0.0-0.1); Basophils % 0.4 %; Eosinophils # 0.2 10^3/uL (0.0-0.8); Eosinophils % 1.8 %; Hematocrit 26.3 % (36-47); Lymphocytes % 16.7 %; Mean Corpuscular HGB Conc 33.5 g/dL (30-55); Mean Corpuscular Hemoglobin 31.9 pg (27-33); Mean Corpuscular Volume 95.3 fl (85-98); Mean Platelet Volume 9.4 fL (7.4-10.4); Monocytes # 1.8 10^3/uL (0.2-0.9); Monocytes % 14.8 %; Nucleated Red Blood Cells % 0 %; Platelet Count 189 10^3/cmm (157-399); Red Blood Count 2.76 10^6/uL (3.85-5.65); Red Cell Distribution Width 13.4 % (12.1-15.1); White Blood Count 11.97 10^3/uL (3.29-11.43)
[2024-07-24 04:25] LABS: Alanine Aminotransferase 50 U/L (0-33); Albumin Level 3.7 g/dL (3.5-5.2); Alkaline Phosphatase 89 U/L (35-105); Anion Gap 13.8 (5-19); Aspartate Amino Transferase 31 U/L (0-32); Blood Urea Nitrogen 9 mg/dL (8-23); Calcium 8.6 mg/dL (8.5-10.5); Carbon Dioxide 26 mmol/L (22-29); Chloride 101 mmol/L (98-107); Creatinine Clr Calc Pharmacy 136.4004; Glomerular Filtration Rate 162.8 mL/min (90-130); Glucose 88 mg/dL (65-115); Osmolality Calculated 282 mOsm/kg (285-295); Potassium 3.8 mmol/L (3.5-5.1); Sodium 137 mmol/L (136-145); Total Bilirubin 0.3 mg/dL (0.15-1.2); Total Protein 5.7 g/dL (6.6-8.7)
[2024-07-24 04:29] LABS: Magnesium 1.6 mg/dL (1.7-2.3)
[2024-07-24] MEDS: acetaminophen 500 mg Tablet 1000 MG PO ×3 (05:22→22:49)
[2024-07-24] MEDS: baclofen 10 mg Tablet PO ×3 (08:50→22:49)
[2024-07-24] MEDS: gabapentin 100 mg Capsule PO ×3 (08:50→22:49)
[2024-07-24] MEDS: nicotine 14 mg Patch 1 PATCH TRANSDERMA (08:50)
[2024-07-24] MEDS: aspirin 325 mg EC Tablet PO (08:50)
[2024-07-24] MEDS: duloxetine 30 mg Capsule PO ×2 (08:50→17:33)
[2024-07-24] MEDS: docusate sodium 100 mg Capsule PO ×2 (08:50→17:33)
[2024-07-24] MEDS: CELEcoxib 200 mg Capsule PO (08:50)
[2024-07-24] MEDS: DIMETHYL FUMARATE 240 MG PO ×2 (08:51→17:33)
[2024-07-24] MEDS: triamcinolone 0.1% cream 15 gm 1 APPLIC TOPICAL (08:51)
[2024-07-24] MEDS: heparin 5,000 unit/mL INJ 1 mL 5000 UNIT SUBCUT ×2 (11:56→22:55)
--- NOTE | 2024-07-24 12:40 | P.PN_ITS ---
Subjective 2 Subjective: Documents overnight. Patient laying comfortably in bed. Able to ambulate from bed to bedside commode without any difficulties. Working well with physical therapy. Has remained on room air. Vitals/I&O/Wt Last Vital Signs Temp 97.4 F L 07/24/24 12:08 Pulse 84 07/24/24 12:08 Resp 18 07/24/24 12:08 BP 96/63 07/24/24 12:08 Pulse Ox 97 07/24/24 12:08 O2 Del Method Room Air 07/24/24 03:52 07/23/24 07/24/24 07/24/24 22:59 06:59 14:59 Intake Total 240 / 960 480 / 480 Balance 240 / 960 480 / 480 Weight last 48 hrs Weight 55.792 kg Weight 55.474 kg Physical Exam 2 Narrative: General: In distress because of hip pain, AO x3, anxious, emotional HEENT: PERRLA, pupils bilaterally equal and reactive Chest: Normal vesicular breath sounds, no added sounds, equal good air entry bilaterally CVS: S1-S2 regular, no murmurs, no tachycardia, no gallops, no rubs Abdomen: Soft, nontender, no organomegaly, bowel sounds present Neuro: No focal deficits, no facial deformity, AO x3, power 5/5 in all limbs Urinary Catheter Management: Park: Cath Placed During This Visit: yes, but has since been removed by the nurse Reason for Continuing Indwelling Catheter: Perioperative Use in Selected Surgeries Urinary Catheter Date of Insertion: 07/21/24 Urinary Catheter Time of Insertion: 19:50 Date Urinary Catheter Removed: 07/23/24 Time Urinary Catheter Discontinued: 06:19 Data 07/24/24 03:22 07/24/24 03:22 Micro: Microbiology 07/22/24 09:08 Urine Culture - Final Urine,Clean Catch A&P Assessment and plan (1) Femoral neck fracture: Post-ORIF from 07/22. PT evaluation. Started on aspirin 325 mg daily for anticoagulation as per orthopedic team. Change oxycodone to 5 mg every 6 hour as needed. Hemoglobin stable. (2) Multiple sclerosis: Continue with home medications. Will monitor for adrenal insufficiency. If needed will start on daily NIF. Incentive spirometry. (3) Alcohol abuse, in remission: Patient claims to still be in remission. Negative alcohol level. (4) Anxiety: Continue home Xanax as needed, duloxetine. 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 (6) Osteoarthritis: Continue management with arthritis medication (7) Encounter for postoperative care: (8) Status post open reduction and internal fixation (ORIF) of fracture: Plan Regular diet. Full code. Foot pumps, heparin 5000 every 12 hourly for DVT prophylaxis. Protonix for PUD prophylaxis Discharge plan: Discussed continue with the patient. Discussed need for physical therapy. She is agreeable. Possible transition to inpatient rehab for further physical therapy. Plan for the day: Patient remains hemodynamically stable. Continue physical therapy. Hemoglobin slightly trending down. Continue to monitor daily. Continue other chronic home medications. Renal function stable. Does have mild leukocytosis today most likely reactionary. Patient has remained afebrile. Hold off on antibiotics. 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
--- NOTE | 2024-07-24 14:50 | P.PN_ITS ---
Subjective 2 Subjective: Patient is seen today, and once again, she lays with her hips flexed approximately 90 degrees and seems comfortable in this position. There is minimal to no swelling at the site of surgery. The patient underwent open reduction internal fixation of a left intertrochanteric hip fracture with subtrochanteric extension. She is working on ambulating and with physical therapy. Likely, she will require halfway at the time of discharge. Medications: Reviewed: Yes Vitals/I&O/Wt Last Vital Signs Temp 97.4 F L 07/24/24 12:08 Pulse 84 07/24/24 12:08 Resp 18 07/24/24 12:08 BP 96/63 07/24/24 12:08 Pulse Ox 97 07/24/24 12:08 O2 Del Method Room Air 07/24/24 03:52 07/23/24 07/24/24 07/24/24 22:59 06:59 14:59 Intake Total 240 / 960 720 / 720 Balance 240 / 960 720 / 720 Weight last 48 hrs Weight 123 lb Weight 122 lb 4.8 oz Physical Exam 2 Const: COMMON NORMALS: no acute distress, average body habitus, patient oriented x3 and alert GENERAL APPEARANCE: cooperative and comfortable N UTRITIONAL APPEARANCE: thin ORIENTATION/CONSCIOUSNESS: Yes awake HENMT: COMMON NORMALS: normocephalic and atraumatic HEAD & SCALP: n ormocephalic and atraumatic Eye: GENERAL EYE: appearance normal, both eyes and all related structures Chest: COMMONS NORMALS: normal inspection of the chest Resp: COMMON NORMALS: normal respiratory effort EFFORT & INSPECTION: Yes able to speak in complete sentences and Yes symmetric chest movement Extremity: LEFT LOWER EXTREMITY: Yes hip joint (Dressings are dry and intact) Left hip: Yes inspection (Minimal swelling and ecchymosis), Yes ROM (Able to move hip without significant pain) and Yes neurovascular exam (Intact to motor and sensory function without evidence of DVT) Neuro: COMMON NORMALS: patient oriented x3 SENSORIUM/ORIENTATION: Yes alert Psych: COMMON NORMALS: mental status grossly normal APPEARANCE: Yes grossly normal ATTITUDE: Yes calm and Yes engaged ATTENTION/CONCENTRATION: Yes attention grossly intact Skin: COMMON NORMALS: no rashes or lesions noted GENERAL SKIN EXAM: no rashes or lesions noted Urinary Catheter Management: Park: Cath Placed During This Visit: yes, but has since been removed by the nurse Reason for Continuing Indwelling Catheter: Perioperative Use in Selected Surgeries Urinary Catheter Date of Insertion: 07/21/24 Urinary Catheter Time of Insertion: 19:50 Date Urinary Catheter Removed: 07/23/24 Time Urinary Catheter Discontinued: 06:19 Data 07/24/24 03:22 07/24/24 03:22 Micro: Microbiology 07/22/24 09:08 Urine Culture - Final Urine,Clean Catch A&P Assessment and plan (1) Closed intertrochanteric fracture of left hip: Patient fell while getting on a bus to go to her doctor's appointment. She fell onto the left side and suffered an intertrochanteric hip fracture with subtrochanteric extension. This is a displaced fracture. Her postoperative rehabilitation will be complicated by the fact that she has had longstanding MS since her late teens. She denies any significant sensory issues in this lower extremity, but she states that she has dragged this left foot for a long time . Patient underwent open reduction fixation uneventfully. She continues to work with physical therapy and is improving in her independence. There is no evidence of complication. She will likely require halfway at the time of discharge. (2) Subtrochanteric fracture of left femur: PDMP PDMP Reviewed: Not Reviewed Attestations 2 Medical Necessity Statement*: Per hospitalist team. Coding Level of Care Code Acute Code for Chg Fwd Diagnoses Closed displaced intertrochanteric fracture of left femur, initial encounter S72.142A Encounter type: initial encounter Fracture alignment: displaced Closed displaced subtrochanteric fracture of left femur, initial encounter S72.22XA Encounter type: initial encounter Fracture alignment: displaced Fracture type: closed
[2024-07-24] MEDS: sennosides 8.6 mg Tablet 17.2 MG PO (22:49)
[2024-07-24] MEDS: morphine 4 mg/mL SDV 1 mL 1 MG IVP (22:55)
[2024-07-24] MEDS: ondansetron 2 mg/ML SDV 2 mL 4 MG IVP (23:35)
[2024-07-25] VITALS (8 sets, daily range): BP systolic 96–123; BP diastolic 58–81; PULSE 67–84; RESP 15–17; TEMP 36.6–37.1; O2SAT 94–100
[2024-07-25] MEDS: pantoprazole 40 mg SDV IVP (03:27)
[2024-07-25] MEDS: morphine 4 mg/mL SDV 1 mL 1 MG IVP ×2 (03:39→19:39)
[2024-07-25] MEDS: acetaminophen 500 mg Tablet 1000 MG PO ×3 (05:07→22:51)
[2024-07-25 06:50] LABS: Magnesium 1.5 mg/dL (1.7-2.3)
[2024-07-25 09:43] LABS: Basophils % 0.4 %; Eosinophils # 0.2 10^3/uL (0.0-0.8); Eosinophils % 1.6 %; Mean Corpuscular HGB Conc 33.5 g/dL (30-55); Mean Corpuscular Hemoglobin 32.2 pg (27-33); Mean Corpuscular Volume 96.3 fl (85-98); Mean Platelet Volume 9.1 fL (7.4-10.4); Monocytes # 1.3 10^3/uL (0.2-0.9); Monocytes % 13.4 %; Neutrophils # 5.92 10^3/uL (1.8-7.7); Neutrophils % 63.3 %; Nucleated Red Blood Cells % 0 %; Platelet Count 251 10^3/cmm (157-399); Red Cell Distribution Width 13.3 % (12.1-15.1); White Blood Count 9.37 10^3/uL (3.29-11.43)
[2024-07-25] MEDS: duloxetine 30 mg Capsule PO ×2 (09:52→17:42)
[2024-07-25] MEDS: nicotine 14 mg Patch 1 PATCH TRANSDERMA (09:52)
[2024-07-25] MEDS: baclofen 10 mg Tablet PO ×3 (09:52→19:39)
[2024-07-25] MEDS: docusate sodium 100 mg Capsule PO ×2 (09:52→17:42)
[2024-07-25] MEDS: aspirin 325 mg EC Tablet PO (09:52)
[2024-07-25] MEDS: gabapentin 100 mg Capsule PO ×3 (09:52→19:39)
[2024-07-25] MEDS: CELEcoxib 200 mg Capsule PO (09:52)
[2024-07-25] MEDS: DIMETHYL FUMARATE 240 MG PO ×2 (09:57→17:43)
[2024-07-25 10:00] LABS: Alanine Aminotransferase 35 U/L (0-33); Albumin Level 3.4 g/dL (3.5-5.2); Alkaline Phosphatase 84 U/L (35-105); Anion Gap 14.9 (5-19); Aspartate Amino Transferase 21 U/L (0-32); Blood Urea Nitrogen 7 mg/dL (8-23); Calcium 8.8 mg/dL (8.5-10.5); Carbon Dioxide 25 mmol/L (22-29); Chloride 99 mmol/L (98-107); Creatinine Clr Calc Pharmacy 136.7008; Globulin 2.7 g/dL (1.3-4.6); Glomerular Filtration Rate 162.8 mL/min (90-130); Glucose 106 mg/dL (65-115); Osmolality Calculated 278 mOsm/kg (285-295); Potassium 3.9 mmol/L (3.5-5.1); Sodium 135 mmol/L (136-145); Total Bilirubin 0.4 mg/dL (0.15-1.2); Total Protein 6.1 g/dL (6.6-8.7)
--- NOTE | 2024-07-25 10:24 | P.PN_ITS ---
Subjective 2 Subjective: No acute events overnight. Has remained hemodynamically stable and afebrile. Able to get out of bed to bedside commode by herself. Working with physical therapy. Medications: Reviewed: Yes Vitals/I&O/Wt Last Vital Signs Temp 98.2 F 07/25/24 07:12 Pulse 67 07/25/24 07:12 Resp 16 07/25/24 07:12 BP 115/58 07/25/24 07:12 Pulse Ox 98 07/25/24 07:12 O2 Del Method Room Air 07/25/24 07:12 07/24/24 07/25/24 07/25/24 22:59 06:59 14:59 Intake Total 240 / 960 440 / 1400 240 / 240 Output Total 2 / 2 Balance 240 / 960 438 / 1398 240 / 240 Weight last 48 hrs Weight 55.792 kg Weight 55.792 kg Physical Exam 2 Narrative: General: In distress because of hip pain, AO x3, anxious, emotional HEENT: PERRLA, pupils bilaterally equal and reactive Chest: Normal vesicular breath sounds, no added sounds, equal good air entry bilaterally CVS: S1-S2 regular, no murmurs, no tachycardia, no gallops, no rubs Abdomen: Soft, nontender, no organomegaly, bowel sounds present Neuro: No focal deficits, no facial deformity, AO x3, power 5/5 in all limbs Urinary Catheter Management: Park: Cath Placed During This Visit: yes, but has since been removed by the nurse Reason for Continuing Indwelling Catheter: Perioperative Use in Selected Surgeries Urinary Catheter Date of Insertion: 07/21/24 Urinary Catheter Time of Insertion: 19:50 Date Urinary Catheter Removed: 07/23/24 Time Urinary Catheter Discontinued: 06:19 Data 07/25/24 09:32 07/25/24 09:32 Micro: Microbiology 07/22/24 09:08 Urine Culture - Final Urine,Clean Catch A&P Assessment and plan (1) Femoral neck fracture: Post-ORIF from 07/22. PT evaluation. Started on aspirin 325 mg daily for anticoagulation as per orthopedic team. Change oxycodone to 5 mg every 6 hour as needed. Hemoglobin stable. (2) Multiple sclerosis: Continue with home medications. Will monitor for adrenal insufficiency. If needed will start on daily NIF. Incentive spirometry. (3) Alcohol abuse, in remission: Patient claims to still be in remission. Negative alcohol level. (4) Anxiety: Continue home Xanax as needed, duloxetine. 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 (6) Osteoarthritis: Continue management with arthritis medication (7) Encounter for postoperative care: (8) Status post open reduction and internal fixation (ORIF) of fracture: Plan Regular diet. Full code. Foot pumps, heparin 5000 every 12 hourly for DVT prophylaxis. Protonix for PUD prophylaxis Discharge plan: Discussed continue with the patient. Discussed need for physical therapy. She is agreeable. Possible transition to inpatient rehab for further physical therapy. Plan for the day: Continue to work with physical therapy. Hemoglobin stable. Will check blood work every 48 hours. Continue with chronic medications. No leukocytosis today. Continue to hold off on antibiotics. Discharge plan: Plan to discharge to inpatient rehab once patient has been accepted. Case management working on the same. 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
[2024-07-25] MEDS: heparin 5,000 unit/mL INJ 1 mL 5000 UNIT SUBCUT ×2 (10:37→22:51)
[2024-07-25] MEDS: oxyCODONE 5 mg IR Tab/Cap PO (10:37)
[2024-07-25] MEDS: sennosides 8.6 mg Tablet 17.2 MG PO (19:39)
[2024-07-26] VITALS (8 sets, daily range): BP systolic 98–110; BP diastolic 59–62; PULSE 61–84; RESP 14–18; TEMP 36.4–36.6; O2SAT 84–97
[2024-07-26] MEDS: pantoprazole 40 mg SDV IVP (03:34)
[2024-07-26] MEDS: morphine 4 mg/mL SDV 1 mL 1 MG IVP (03:35)
[2024-07-26 05:32] LABS: Basophils # 0.1 10^3/uL (0.0-0.1); Basophils % 0.8 %; Eosinophils # 0.2 10^3/uL (0.0-0.8); Eosinophils % 2.8 %; Lymphocytes # 1.8 10^3/uL (0.8-4.8); Lymphocytes % 20.4 %; Mean Corpuscular Hemoglobin 32.7 pg (27-33); Mean Corpuscular Volume 96.2 fl (85-98); Mean Platelet Volume 9.7 fL (7.4-10.4); Monocytes % 11.4 %; Neutrophils # 5.57 10^3/uL (1.8-7.7); Neutrophils % 64.3 %; Nucleated Red Blood Cells % 0 %; Platelet Count 285 10^3/cmm (157-399); Red Cell Distribution Width 13.3 % (12.1-15.1); White Blood Count 8.67 10^3/uL (3.29-11.43)
[2024-07-26 05:51] LABS: Alanine Aminotransferase 29 U/L (0-33); Albumin Level 3.7 g/dL (3.5-5.2); Alkaline Phosphatase 89 U/L (35-105); Aspartate Amino Transferase 20 U/L (0-32); Blood Urea Nitrogen 7 mg/dL (8-23); Carbon Dioxide 27 mmol/L (22-29); Chloride 102 mmol/L (98-107); Globulin 2.2 g/dL (1.3-4.6); Glomerular Filtration Rate 226.9 mL/min (90-130); Glucose 95 mg/dL (65-115); Osmolality Calculated 286 mOsm/kg (285-295); Sodium 139 mmol/L (136-145); Total Bilirubin 0.5 mg/dL (0.15-1.2); Total Protein 5.9 g/dL (6.6-8.7)
[2024-07-26 05:53] LABS: Anion Gap 14.4 (5-19); Potassium 4.4 mmol/L (3.5-5.1)
[2024-07-26] MEDS: acetaminophen 500 mg Tablet 1000 MG PO (06:00)
--- NOTE | 2024-07-26 08:32 | PM.DCS ---
Discharge Providers Date of Admission: 07/22/24 03:32 Date of Discharge: July 26, 2024 Attending Provider at Admission: Shaniqua Stevens MD Attending Provider at Discharge: Dov Carson MD Consults: Orthopedics: Dr. Mendez Primary Care Provider: ROSA Nguyen Diagnoses at Discharge Discharge Diagnosis (1) Femoral neck fracture: Status: Acute Qualifiers: Encounter type: initial encounter Fracture type: closed Laterality: left Qualified Code(s): S72.002A - Fracture of unspecified part of neck of left femur, initial encounter for closed fracture (2) Multiple sclerosis: Status: Chronic Permanent problem details: Multiple sclerosis for this patient poses sequela that continue to cause other acute problem such as falling and fracturing the bones. 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 Patient because of ambulatory dysfunction from her MS sustained a mechanical fall falling down on the left hip fracturing her femoral neck on the left. It was for this reason patient came to the emergency room for further care. Emergency room department attending consulted orthopedics who plan to repair her left hip at 1 PM today. Preop workup we have done in the emergency room EKG was done was unremarkable chest x-ray was done patient is not in heart failure. Patient is able to undergo left femoral neck fracture repair. Patient has been seen and evaluated by me. Pain management optimized with morphine. Patient is n.p.o. after midnight except for her medications. Patient had taking medications prior to even the attending physician in the ED or myself seeing her in the emergency room. We gave some pain management with morphine as of now. I have reconciled her medication she never wanted to skip her multiple sclerosis medication. All has been reconciled at this time. Patient is looking forward to have the left hip repair. Patient is not on any anticoagulation. Her medication have been reviewed and noted. Hospital Course Hospital Course Patient was admitted to the hospital further evaluation and management of hip fracture. She underwent ORIF on 07/22. Postoperative care was unremarkable. Safe discharge plan were discussed in detail with the patient and she requested to be transition to SNF. She has been discharged to inpatient rehab for further rehabitation. Physical Exam Narrative: General: In distress because of hip pain, AO x3, anxious, emotional HEENT: PERRLA, pupils bilaterally equal and reactive Chest: Normal vesicular breath sounds, no added sounds, equal good air entry bilaterally CVS: S1-S2 regular, no murmurs, no tachycardia, no gallops, no rubs Abdomen: Soft, nontender, no organomegaly, bowel sounds present Neuro: No focal deficits, no facial deformity, AO x3, power 5/5 in all limbs Urinary Catheter Management: Park: Cath Placed During This Visit: yes, but has since been removed by the nurse Reason for Continuing Indwelling Catheter: Perioperative Use in Selected Surgeries Urinary Catheter Date of Insertion: 07/21/24 Urinary Catheter Time of Insertion: 19:50 Date Urinary Catheter Removed: 07/23/24 Time Urinary Catheter Discontinued: 06:19 Discharge Data Studies Completed and Pending Completed Studies During Hospitalization Category Date Time Status CXRP [XR chest 1V portable [id number]] Stat Exams 07/21/24 17:55 Completed XR hip LT 2-3V wo/w pel* [id number] Routine Exams 07/22/24 12:46 Completed XR hip LT 2-3V wo/w pel* [id number] Stat Exams 07/21/24 15:25 Completed Radiology Impressions Chest X-Ray 07/21/24 17:55 IMPRESSION: No acute cardiopulmonary findings. Hip/Pelvis X-Ray 07/22/24 12:46 IMPRESSION: Status post ORIF LEFT intertrochanteric hip fracture good position and alignment. Laboratory Results WBC 8.67 10^3/uL (3.29-11.43) 07/26/24 04:39 RBC 2.60 10^6/uL (3.85-5.65) L 07/26/24 04:39 Hgb 8.50 g/dL (11.27-16.99) L 07/26/24 04:39 Hct 25.0 % (36-47) L 07/26/24 04:39 MCV 96.2 fl (85-98) 07/26/24 04:39 MCH 32.7 pg (27-33) 07/26/24 04:39 MCHC 34.0 g/dL (30-55) 07/26/24 04:39 RDW 13.3 % (12.1-15.1) 07/26/24 04:39 Plt Count 285 10^3/cmm (157-399) 07/26/24 04:39 MPV 9.7 fL (7.4-10.4) 07/26/24 04:39 Neut % (Auto) 64.3 % 07/26/24 04:39 Lymph % (Auto) 20.4 % 07/26/24 04:39 [place] % (Auto) 11.4 % 07/26/24 04:39 Eos % (Auto) 2.8 % 07/26/24 04:39 Baso % (Auto) 0.8 % 07/26/24 04:39 Neut # (Auto) 5.57 10^3/uL (1.8-7.7) 07/26/24 04:39 Lymph # (Auto) 1.8 10^3/uL (0.8-4.8) 07/26/24 04:39 [place] # (Auto) 1.0 10^3/uL (0.2-0.9) H 07/26/24 04:39 Eos # (Auto) 0.2 10^3/uL (0.0-0.8) 07/26/24 04:39 Baso # (Auto) 0.1 10^3/uL (0.0-0.1) 07/26/24 04:39 Nucleated RBC % (auto) 0 % 07/26/24 04:39 Nucleated RBCs # 0.0 /100WBC 07/26/24 04:39 Sodium 139 mmol/L (136-145) 07/26/24 04:39 Potassium 4.4 mmol/L (3.5-5.1) 07/26/24 04:39 Chloride 102 mmol/L (98-107) 07/26/24 04:39 Carbon Dioxide 27 mmol/L (22-29) 07/26/24 04:39 Anion Gap 14.4 (5-19) 07/26/24 04:39 BUN 7 mg/dL (8-23) L 07/26/24 04:39 Creatinine 0.3 mg/dL (0.5-0.9) L 07/26/24 04:39 GFR Calculation 226.9 mL/min (90-130) H 07/26/24 04:39 Glucose 95 mg/dL (65-115) 07/26/24 04:39 Estimat Average Glucose 103 07/22/24 04:50 Hemoglobin A1c 5.2 % (4.0-6.0) 07/22/24 04:50 Calculated Osmolality 286 mOsm/kg (285-295) 07/26/24 04:39 Calcium 9.0 mg/dL (8.5-10.5) 07/26/24 04:39 Phosphorus 3.4 mg/dL (2.5-4.5) 07/22/24 04:50 Magnesium 1.5 mg/dL (1.7-2.3) L 07/25/24 05:25 Iron 46 ug/dL (37-145) 07/22/24 04:50 TIBC 263 mcg/dl 07/22/24 04:50 % Saturation 17.4 % (20-50) L 07/22/24 04:50 Unsat Iron Binding 217 ug/dL (112-347) 07/22/24 04:50 Total Bilirubin 0.5 mg/dL (0.15-1.2) 07/26/24 04:39 AST 20 U/L (0-32) 07/26/24 04:39 ALT 29 U/L (0-33) 07/26/24 04:39 Alkaline Phosphatase 89 U/L (35-105) 07/26/24 04:39 Total Protein 5.9 g/dL (6.6-8.7) L 07/26/24 04:39 Albumin 3.7 g/dL (3.5-5.2) 07/26/24 04:39 Globulin 2.2 g/dL (1.3-4.6) 07/26/24 04:39 Triglycerides 56 mg/dL (0-150) 07/22/24 04:50 Cholesterol 146 mg/dL (0-200) 07/22/24 04:50 LDL Cholesterol, Calc 78 mg/dL (50-129) 07/22/24 04:50 HDL Cholesterol 57 mg/dL (60-100) L 07/22/24 04:50 LDL/HDL Ratio 1.37 RATIO (0.00-3.22) 07/22/24 04:50 Cholesterol/HDL Ratio 2.56 mg/dL (0.0-4.40) 07/22/24 04:50 Lipase 164 U/L (13-60) H 07/21/24 19:50 Vitamin B12 1062 pg/mL (232-1245) 07/22/24 04:50 Folate > 20.0 ng/mL (4.8-37.3) 07/23/24 02:24 TSH 3.73 uIU/mL (0.27-4.20) 07/22/24 04:50 Urine Color Yellow (Yellow) 07/22/24 09:08 Urine Appearance Clear (CLEAR) 07/22/24 09:08 Urine pH 6.5 (5-7) 07/22/24 09:08 Ur Specific [place] 1.014 (1.005-1.030) 07/22/24 09:08 Urine Protein Negative (Negative) 07/22/24 09:08 Urine Glucose (UA) Negative (Normal) 07/22/24 09:08 Urine Ketones 3+ (Negative) H 07/22/24 09:08 Urine Blood 1+ (Negative) A 07/22/24 09:08 Urine Nitrate Negative (Negative) 07/22/24 09:08 Urine Bilirubin Negative (Negative) 07/22/24 09:08 Urine Urobilinogen 0.2 mg/dL (Negative) 07/22/24 09:08 Ur Leukocyte Esterase 1+ (Negative) A 07/22/24 09:08 Urine RBC 11-20 /hpf (0-2) H 07/22/24 09:08 Urine WBC 21-50 /hpf (0-5) H 07/22/24 09:08 Ur Squamous Epith Cells 0-5 /hpf (0-5) 07/22/24 09:08 Amorphous Sediment Not Reportable 07/22/24 09:08 Urine Bacteria None seen /hpf (NONE) 07/22/24 09:08 Hyaline Casts 0-4 /lpf H 07/22/24 09:08 Urine Opiates Screen Positive ng/mL (Negative) H 07/22/24 09:08 Ur Barbiturates Screen Negative ng/mL (Negative) 07/22/24 09:08 Ur Phencyclidine Scrn Negative ng/mL (Negative) 07/22/24 09:08 Ur Amphetamines Screen Negative ng/mL (Negative) 07/22/24 09:08 U Benzodiazepines Scrn Positive ng/mL (Negative) H 07/22/24 09:08 Urine Cocaine Screen Negative ng/mL (Negative) 07/22/24 09:08 U Marijuana (THC) Screen Positive ng/mL (Negative) H 07/22/24 09:08 Ethyl Alcohol < 10 mg/dL (0-10) 07/22/24 04:50 Vitals Last Vital Signs Temp 97.6 F 07/26/24 07:13 Pulse 74 07/26/24 07:13 Resp 15 07/26/24 07:13 BP 100/61 07/26/24 07:13 Pulse Ox 97 07/26/24 07:13 O2 Del Method Room Air 07/26/24 07:13 Discharge Plan Discharge Patient Disposition: Home Condition: Stable Prescriptions: New aspirin 325 mg Tablet,Delayed Release (Dr/Ec) 325 mg PO DAILY Qty: 30 0RF Continued (DME) Bathroom hand rails See Rx Instructions .Route .MEDSUPPLY Qty: 1 0RF Rx Instructions: As directed celecoxib [Celebrex] 100 mg capsule 100 mg PO BID 30 Days Qty: 60 3RF baclofen 10 mg tablet 10 mg PO TID dimethyl fumarate [Tecfidera] 240 mg capsule,delayed release(DR/EC) 240 mg PO BID duloxetine 30 mg capsule,delayed release(DR/EC) 30 mg PO BID 90 Days Qty: 180 2RF triamcinolone acetonide 0.1 % cream 1 applic topical BID 10 Days Qty: 30 0RF ergocalciferol (vitamin D2) 1,250 mcg (50,000 unit) capsule See Rx Instructions .ROUTE .COMPLEX Qty: 4 0RF Dose Instruction: TAKE 1 CAPSULE BY MOUTH ONCE WEEKLY FOR 90 DAYS Rx Instructions: TAKE 1 CAPSULE BY MOUTH ONCE WEEKLY FOR 90 DAYS gabapentin 100 mg capsule 100 mg PO 3XD lorazepam 0.5 mg Tablet 0.5 mg PO DAILY PRN (Reason: anxiety) chlorhexidine gluconate 0.12 % mouthwash 15 ml PO BID Discontinued ibuprofen 800 mg tablet 800 mg PO Q8H amoxicillin 500 mg tablet 1,500 mg PO DAILY dexamethasone 4 mg tablet 4 mg PO DAILY Discharge Orders: Discharge Order (Routine); Ordered 07/26/24 Ordered By: Dov Carson Referrals: Davida Mendez MD [Physician, Orthopedics] - 08/08/24 10:15 am Willy Albarado FNP [Primary Care Provider, [facility]] Discharge Diet: Cardiac Discharge Activity: Increase activity as tolerated Patient Instructions: Acute Wound Care (DC), ORIF of Hip Fracture (GEN), Opioid Safety, Post Anesthesia Care Discharge Attestations Time Spent in Discharge Care*: greater than 30 min Specific Discharge Activities: educating patient, discussing with pcp/other providers, discussing with corrections caseworker/social workers/dc planners, documenting/other paperwork and evaluating patient/reviewing data Status at Discharge: Cognitive status at discharge: cognitively intact, Behavioral status at discharge: cooperative, Functional status at discharge: uses cane/walker, Overall status at discharge: patient is progressing back to baseline Quality Metrics Clinical Quality Measures [ No reported AMI, CVA or VTE this stay] Coding Level of Care Code 86778 Total time (in minutes) for Discharge: 65 Diagnoses Femoral neck fracture S72.002A Encounter type: initial encounter Fracture type: closed Laterality: left Multiple sclerosis G35 Alcohol abuse, in remission F10.11 Anxiety F41.9 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
[2024-07-26] MEDS: oxyCODONE 5 mg IR Tab/Cap PO ×2 (09:08→14:50)
[2024-07-26] MEDS: baclofen 10 mg Tablet PO (09:09)
[2024-07-26] MEDS: CELEcoxib 200 mg Capsule PO (09:09)
[2024-07-26] MEDS: nicotine 14 mg Patch 1 PATCH TRANSDERMA (09:09)
[2024-07-26] MEDS: aspirin 325 mg EC Tablet PO (09:09)
[2024-07-26] MEDS: gabapentin 100 mg Capsule PO (09:09)
[2024-07-26] MEDS: docusate sodium 100 mg Capsule PO (09:09)
[2024-07-26] MEDS: duloxetine 30 mg Capsule PO (09:09)
[2024-07-26] MEDS: triamcinolone 0.1% cream 15 gm 1 APPLIC TOPICAL (09:12)
[2024-07-26] MEDS: DIMETHYL FUMARATE 240 MG PO (09:13)
--- NOTE | 2024-07-26 13:22 | PC.NURSE ---
Attempted report to [facility] inpatient rehab and no answer.
== END 2024-07-26 14:58 | DRG 482 ==
LOC: ER 21:13 → MEDSURG 22:11
PROVIDERS: Specialist; Admitting Provider Internal Medicine; Emergency Provider Nurse Practitioner; PCP Registered Nurse; Visit Provider Student in an Organized Health Care Education/Training Program
PROC: 0QS704Z Reposition Left Upper Femur with Internal Fixation Device, Open Approach (ICD-10-PCS; CPT 27245; principal; 2024-07-22 13:00)
DX: S72.142A Displaced intertrochanteric fracture of left femur, initial encounter for closed fracture (principal); S72.22XA Displaced subtrochanteric fracture of left femur, initial encounter for closed fracture; W01.0XXA Fall on same level from slipping, tripping and stumbling without subsequent striking against object, initial encounter; G35 Multiple sclerosis; F10.11 Alcohol abuse, in remission; F41.9 Anxiety disorder, unspecified; F06.31 Mood disorder due to known physiological condition with depressive features; M15.9 Polyosteoarthritis, unspecified; M21.622 Bunionette of left foot; M71.9 Bursopathy, unspecified
CPT/HCPCS: 36415; 51702; 71045; 73502; 76000; 80053; 80061; 80306; 80307; 81001; 82607; 82746; 83036; 83540; 83550; 83690; 83735; 84100; 84443; 85025; 87086; 93005; 96372; 96374; 96375; 96376; 97110; 97116; 97162; 97165; 97530; 99285; C1713; G0378; J0131; J0690; J1100; J1171; J1644; J2270; J2371; J2405; J2470; J2704; J3010; J7030; J9999

== ENCOUNTER → 2024-08-15 10:07 | Outpatient (BNVA) | payer MEDICAID, SELFPAY | PROVIDERS: PCP Registered Nurse; Visit Provider Specialist | DX: Z98.890 Other specified postprocedural states (principal); Z87.81 Personal history of (healed) traumatic fracture | CPT/HCPCS: 73502; 99024 ==

== ENCOUNTER → 2024-10-04 11:52 | Outpatient (BNVA) | payer MEDICAID, SELFPAY | PROVIDERS: PCP Registered Nurse; Visit Provider Registered Nurse | DX: D64.9 Anemia, unspecified (principal); E55.9 Vitamin D deficiency, unspecified | CPT/HCPCS: 80048; 82306; 83735; 85025 ==

== ENCOUNTER → 2024-10-26 09:13 | Outpatient (BNVA) | payer MEDICAID, SELFPAY | PROVIDERS: PCP Registered Nurse; Visit Provider Registered Nurse | DX: N90.89 Other specified noninflammatory disorders of vulva and perineum (principal) | CPT/HCPCS: 88304 ==

== ENCOUNTER → 2024-12-19 12:54 | Outpatient (BNVA) | payer MEDICAID, SELFPAY | PROVIDERS: PCP Registered Nurse; Visit Provider Specialist | DX: Z47.89 Encounter for other orthopedic aftercare (principal); Z87.81 Personal history of (healed) traumatic fracture | CPT/HCPCS: 73502; 99214 ==